=== PATIENT | female | born 1940 | race Caucasian/White ===

== ENCOUNTER → 2017-09-12 09:41 | Outpatient (CLI) | payer OTHER, SELFPAY ==
--- NOTE | 2017-09-12 09:43 | DI.RAD.S_ITS ---
PROCEDURE: XR CERVICAL SPINE 2V OR 3V INDICATIONS: neck pain TECHNIQUE: 3 view(s) of the cervical spine were acquired. COMPARISON: None. FINDINGS: Bones: No fractures or dislocations to the C7 level. The lateral masses of C1 appear intact on the odontoid view, degenerative facet disease left greater than right. Multilevel disc narrowing, most marked at C5-6. Hypertrophic changes in the lateral masses bilaterally. No suspicious bony lesions. Soft tissues: No prevertebral soft tissue swelling. IMPRESSION: Degenerative cervical spine disease. Dictated by: Tom Baca M.D. on 09/12/2017 at 9:53 Approved by: Tom Baca M.D. on 09/12/2017 at 9:55
== END ==
PROVIDERS: Family Provider Family Medicine; PCP Family Medicine; Visit Provider Family Medicine
DX: M48.02 Spinal stenosis, cervical region (principal); M54.2 Cervicalgia
CPT/HCPCS: 72040

== ENCOUNTER 2017-11-29 13:00 | Outpatient (RCR) | payer OTHER, SELFPAY ==
--- NOTE | 2017-10-04 13:01 | PT.OIE ---
Current Diagnoses Cervicalgia (10/04/17) Past Medical History (Last Updated 09/07/17 @ 17:09 by Natacha Sam) Goiter (Chronic ~1953) Hearing loss (Chronic ~1999) Osteoarthritis (Chronic ~1999) Shoulder pain (Chronic ~1999) Chicken pox (Resolved ~1946) Measles (Resolved ~1949) Past Surgical History (Last Updated 09/07/17 @ 17:09 by Natacha Sam) Anesthesia (Resolved) Cataract (Resolved ~2010) History of vaginal delivery (Resolved ~1968) Status post dilation and curettage Provider Visit Care Team Role Provider Type All Chavez MD Attending Provider Physician Family Provider Primary Care Provider Specialty: Family Practice Address: [address] [place] [address], [facility] Email: [email or web address] Physical Therapy Initial Evaluation PT-OP-A Visit Information Start: 09/29/17 15:18 Freq: Status: Active Protocol: Document 09/29/17 15:18 EA (Rec: 09/29/17 15:21 EA [id number]) Out-Patient Physical Therapy Visit Information Visit Information Visit Type Initial Evaluation Visit Start Time 09:00 Visit Stop Time 09:45 Total Visit Minutes 45 Visit Number 1 Evaluation Information Evaluation Date 09/29/17 PT-OP-B Current Condition Start: 09/29/17 15:18 Freq: Status: Active Protocol: Document 09/29/17 15:18 EA (Rec: 09/29/17 15:21 EA [id number]) Current Condition History of Current Condition Onset Date 5 months ago Current Complaints left neck pain History of Current Condition Present condition started on the last week of April 2017 and happens after waking up in the morning; states no significant history of neck or shoulder injury. Pain initially tolerated and gradually worsens in few weeks time and that prompted to see her medical doctor; states today neck has improved since the injury. 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 Prior Treatments and Tests None Future Testing and Treatments Planned None at this time Treatment Goals Patient/Caregiver Goals 1.Eliminate pain 2. Improve neck mobility Prior Functional Status Baseline Function- ADL's Independent Current Functional Impairments (Reported) Functional Limitations- ADL's limited with some ADL head neck positioning Functional Limitations- Other Driving, reading, upright position tolerance Personal Factors Other Personal Factors That May Effect Chronicity of the condition Therapy/Recovery PT-OP-C Subjective Start: 09/29/17 15:18 Freq: Status: Active Protocol: Document 09/29/17 15:17 EA (Rec: 10/04/17 11:13 EA [id number]) OP-PT Subjective Patient Comments Patient Comments Patient c/o driving the car, sleeping and moving the head in diff direction due to localized neck pain rated 7/10 at worse and 3/10 at best. Pt states wants to eliminate pain and so she could perform her ADL's without limitation. Patient Reported Progress Improving Patient Questionnaires Neck Disability Index NDI Score 10 Neck Disability Index Impairment 1 to 19% Impaired (Score 1-9) PT-OP-F Manual Assessment Start: 09/29/17 15:18 Freq: Status: Active Protocol: Document 09/29/17 15:17 EA (Rec: 10/04/17 11:13 EA [id number]) Manual Assessments Soft Tissue Assessment Soft Tissue Mobility Assessment tightness ti both traps, deep neck muscles, scallenes, LS, SCM PT-OP-H Neuro Start: 09/29/17 15:18 Freq: Status: Active Protocol: Document 09/29/17 15:17 EA (Rec: 10/04/17 11:13 EA [id number]) Sensation Evaluation Gross Sensation Gross Sensation WNL Deep Tendon Reflex & Clonus Assessment Deep Tendon Reflex Bilateral Brachioradialis Deep Tendon Reflex 2+ Normal Bilateral Tricep Deep Tendon Reflex 2+ Normal Bilateral Bicep Deep Tendon Reflex 2+ Normal PT-OP-J Posture/Palpation/Skin Start: 09/29/17 15:18 Freq: Status: Active Protocol: Document 09/29/17 15:18 EA (Rec: 10/04/17 07:32 EA [id number]) Posture Evaluation Position Standing Evaluation View Anterior Head/C-Spine Posture Forward Head Shoulder Posture (L) Rounded (R) Rounded Arm Posture (L) Internally Rotated (R) Internally Rotated Palpation Assessment Location One Palpation Location Left traps, SCM, Deepcervical neck ms. Palpation Findings Soft Tissue Tightness Tenderness PT-OP-K Range of Motion Start: 09/29/17 15:18 Freq: Status: Active Protocol: Document 09/29/17 15:18 EA (Rec: 10/04/17 10:56 EA [id number]) Cervical Spine Range of Motion Cervical Spine Active Testing Position Sitting Flexion 35 Extension 35 Rotation Left 35 Rotation Right 20 Lateral Flexion Left 35 Lateral Flexion Right 30 ROM Limitations Soft Tissue Tightness Pain Comments ROM is limited by pain and tightness Shoulder Goniometric Range of Motion Shoulder Measured in Degrees Right Shoulder ROM WFL Yes Left Shoulder ROM WFL Yes PT-OP-L Special Tests Start: 09/29/17 15:18 Freq: Status: Active Protocol: Document 09/29/17 15:18 EA (Rec: 10/04/17 09:42 EA [id number]) Special Tests Cervical Spine Special Tests Other- 1 Test Results + Comments Facets joint Vertebral Artery Test Results - Spurling's Test Test Results - Shoulder Abduction Test Test Results - Foraminal Compression Test Results - PT-OP-M Strength Start: 09/29/17 15:18 Freq: Status: Active Protocol: Document 09/29/17 15:18 EA (Rec: 10/04/17 09:42 EA [id number]) Cervical Spine Strength Cervical Spine Manual Muscle Testing Flexion (C1-2) 3+ Fair+ Extension 4- Good- Rotation Left 3+ Fair+ Rotation Right 3+ Fair+ Lateral Flexion Left (C3) 3+ Fair+ Lateral Flexion Right (C3) 3+ Fair+ Comments MMT is maybe limited by pain Shoulder Strength Shoulder Manual Muscle Testing Right Horizontal Adduction 4+ Good+ Left Reason Not Measured WFL PT-OP-Q Treatments Start: 09/29/17 15:18 Freq: Status: Active Protocol: Document 09/29/17 15:18 EA (Rec: 10/04/17 09:42 EA [id number]) Manual Therapy Treatment Soft Tissue Mobilization 1 Body Location Left traps, SCM, LS, deep neck ms Mobilization Type Myofascial Release Rolling Sustained Pressure Intensity/Depth Moderate Body Position Sitting PT-OP-R Modalities Start: 09/29/17 15:18 Freq: Status: Active Protocol: Document 09/29/17 15:18 EA (Rec: 10/04/17 07:32 EA [id number]) Hot Pack/Cold Pack Treatment Hot Pack Location Cervical region Patient Position Sitting Patient Tolerance Good PT-OP-T Assessment and Plan Start: 09/29/17 15:18 Freq: Status: Active Protocol: Document 09/29/17 15:18 EA (Rec: 10/04/17 07:32 EA [id number]) Physical Therapy Assessment Rehab Potential Rehabilitation Potential Good Evaluation Complexity Number of Personal Factors/Comorbidities 1-2 Number of Body Systems Impaired 1-2 Clinical Presentation at Evaluation Stable Impairments Impairments Pain Posture ROM Soft Tissue Mobility Strength Goals Three Impairment Subjective pain complaint of 7 /10 PS Half-Way Goal (LTG) Patient will reports neck pain complaint down to 2/10 to perform neck functional mobility with no limitation LTG Duration 4 wks. Two Impairment Impaired cervical ROM Half-Way Goal (LTG) Patient will increase cervical ROM to functional range to ihnace functional neck mobility. LTG Duration 4 wks One Impairment Impaired Head neck and shoulder posture Appeals Analyst Goal (LTG) Patient will exhibits near to normal or at least functional posture to head/neck LTG Duration 4 wks Assessment Summary Assessment Pleasant 77 y/o F patient diagnosed with neck pain. Today patient exhibits difficulty with neck movement due to LOM in all planes of cervical motion and pain to right cervical region particularly C4-C6 joint facets. Pt exhibits no foraminal nerve compression in all cervical nerves during the tests; however, facet joints test reveals positive in both opening and closing motion with combination of muscular tightness. Due to this condition, patient have limitation in most functional tasks that require neck motion . In my professional opinion, patient will benefit with skilled PT to address the aforementioned deficits. Physical Therapy Plan Frequency and Duration Frequency of Treatment 2x/Week Plan of Care Start Date 09/29/17 Plan of Care End Date 11/24/17 Therapeutic Interventions Therapeutic Interventions Home Exercise Program Joint Mobilizations Manual Therapy Patient/Caregiver Education Self-Care/Home Management Soft Tissue Mobilization Therapeutic Exercises Modalities Cold Pack/Ice Massage Electric Stimulation Hot Packs Next Visit Focus/Plan Next Note Type Treatment Note Next Visit Plan ROM exercises, Modalities, STM , HEP as able
--- NOTE | 2017-10-04 13:07 | PT.OTN ---
Current Diagnoses Cervicalgia (10/04/17) Physical Therapy Treatment Note PT-OP-A Visit Information Start: 09/29/17 15:18 Freq: Status: Active Protocol: Document 09/29/17 15:18 EA (Rec: 09/29/17 15:21 EA [id number]) Out-Patient Physical Therapy Visit Information Visit Information Visit Type Initial Evaluation Visit Start Time 09:00 Visit Stop Time 09:45 Total Visit Minutes 45 Visit Number 1 Evaluation Information Evaluation Date 09/29/17 PT-OP-B Current Condition Start: 09/29/17 15:18 Freq: Status: Active Protocol: Document 09/29/17 15:18 EA (Rec: 09/29/17 15:21 EA [id number]) Current Condition History of Current Condition Onset Date 5 months ago Current Complaints left neck pain History of Current Condition Present condition started on the last week of April 2017 and happens after waking up in the morning; states no significant history of neck or shoulder injury. Pain initially tolereated and gradually worsens in few weeks time and that prompted to see her medical doctor; states today neck has improved since the injury. 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 Prior Treatments and Tests None Future Testing and Treatments Planned None at this time Treatment Goals Patient/Caregiver Goals 1.Eliminate pain 2. Improve neck mobility Prior Functional Status Baseline Function- ADL's Independent Current Functional Impairments (Reported) Functional Limitations- ADL's limited with some ADL head neck positioning Functional Limitations- Other Driving, reading, upright position tolerance Personal Factors Other Personal Factors That May Effect Chronicity of the condition Therapy/Recovery PT-OP-C Subjective Start: 09/29/17 15:18 Freq: Status: Active Protocol: Document 09/29/17 15:17 EA (Rec: 10/04/17 11:13 EA [id number]) OP-PT Subjective Patient Comments Patient Comments Patient c/o driving the car, sleeping and moving the head in diff direction due to localized neck pain rated 7/10 at worse and 3/10 at best. Pt states wants to eliminate pain and so she could perform her ADL's without limitation. Patient Reported Progress Improving Patient Questionnaires Neck Disability Index NDI Score 10 Neck Disability Index Impairment 1 to 19% Impaired (Score 1-9) PT-OP-F Manual Assessment Start: 09/29/17 15:18 Freq: Status: Active Protocol: Document 09/29/17 15:17 EA (Rec: 10/04/17 11:13 EA [id number]) Manual Assessments Soft Tissue Assessment Soft Tissue Mobility Assessment tightness ti both traps, deep neck muscles, scallenes, LS, SCM PT-OP-H Neuro Start: 09/29/17 15:18 Freq: Status: Active Protocol: Document 09/29/17 15:17 EA (Rec: 10/04/17 11:13 EA [id number]) Sensation Evaluation Gross Sensation Gross Sensation WNL Deep Tendon Reflex & Clonus Assessment Deep Tendon Reflex Bilateral Brachioradialis Deep Tendon Reflex 2+ Normal Bilateral Tricep Deep Tendon Reflex 2+ Normal Bilateral Bicep Deep Tendon Reflex 2+ Normal PT-OP-J Posture/Palpation/Skin Start: 09/29/17 15:18 Freq: Status: Active Protocol: Document 09/29/17 15:18 EA (Rec: 10/04/17 07:32 EA [id number]) Posture Evaluation Position Standing Evaluation View Anterior Head/C-Spine Posture Forward Head Shoulder Posture (L) Rounded (R) Rounded Arm Posture (L) Internally Rotated (R) Internally Rotated Palpation Assessment Location One Palpation Location Left traps, SCM, Deepcervical neck ms. Palpation Findings Soft Tissue Tightness Tenderness PT-OP-K Range of Motion Start: 09/29/17 15:18 Freq: Status: Active Protocol: Document 09/29/17 15:18 EA (Rec: 10/04/17 10:56 EA [id number]) Cervical Spine Range of Motion Cervical Spine Active Testing Position Sitting Flexion 35 Extension 35 Rotation Left 35 Rotation Right 20 Lateral Flexion Left 35 Lateral Flexion Right 30 ROM Limitations Soft Tissue Tightness Pain Comments ROM is limited by pain and tightness Shoulder Goniometric Range of Motion Shoulder Measured in Degrees Right Shoulder ROM WFL Yes Left Shoulder ROM WFL Yes PT-OP-L Special Tests Start: 09/29/17 15:18 Freq: Status: Active Protocol: Document 09/29/17 15:18 EA (Rec: 10/04/17 09:42 EA [id number]) Special Tests Cervical Spine Special Tests Other- 1 Test Results + Comments Facets joint Vertebral Artery Test Results - Spurling's Test Test Results - Shoulder Abduction Test Test Results - Foraminal Compression Test Results - PT-OP-M Strength Start: 09/29/17 15:18 Freq: Status: Active Protocol: Document 09/29/17 15:18 EA (Rec: 10/04/17 09:42 EA [id number]) Cervical Spine Strength Cervical Spine Manual Muscle Testing Flexion (C1-2) 3+ Fair+ Extension 4- Good- Rotation Left 3+ Fair+ Rotation Right 3+ Fair+ Lateral Flexion Left (C3) 3+ Fair+ Lateral Flexion Right (C3) 3+ Fair+ Comments MMT is maybe limited by pain Shoulder Strength Shoulder Manual Muscle Testing Right Horizontal Adduction 4+ Good+ Left Reason Not Measured WFL PT-OP-Q Treatments Start: 09/29/17 15:18 Freq: Status: Active Protocol: Document 09/29/17 15:18 EA (Rec: 10/04/17 09:42 EA [id number]) Manual Therapy Treatment Soft Tissue Mobilization 1 Body Location Left traps, SCM, LS, deep neck ms Mobilization Type Myofascial Release Rolling Sustained Pressure Intensity/Depth Moderate Body Position Sitting PT-OP-R Modalities Start: 09/29/17 15:18 Freq: Status: Active Protocol: Document 09/29/17 15:18 EA (Rec: 10/04/17 07:32 EA [id number]) Hot Pack/Cold Pack Treatment Hot Pack Location Cervical region Patient Position Sitting Patient Tolerance Good PT-OP-T Assessment and Plan Start: 09/29/17 15:18 Freq: Status: Active Protocol: Document 09/29/17 15:18 EA (Rec: 10/04/17 07:32 EA [id number]) Physical Therapy Assessment Rehab Potential Rehabilitation Potential Good Evaluation Complexity Number of Personal Factors/Comorbidities 1-2 Number of Body Systems Impaired 1-2 Clinical Presentation at Evaluation Stable Impairments Impairments Pain Posture ROM Soft Tissue Mobility Strength Goals Three Impairment Subjective pain complaint of 7 /10 PS Detention Goal (LTG) Patient will reports neck pain complaint down to 2/10 to perform neck functional mobility with no limitation LTG Duration 4 wks. Two Impairment Impaired cervical ROM Marketing Operations Coordinator Goal (LTG) Patient will increase cervical ROM to functional range to enhance functional neck mobility. LTG Duration 4 wks One Impairment Impaired Head neck and shoulder posture Detention Goal (LTG) Patient will exhibits near to normal or atleast functional posture to head/neck LTG Duration 4 wks Assessment Summary Assessment Pleasant 77 y/o F patient diagnosed with neck pain. Today patient exhibits difficulty with neck movement due to LOM in all planes of cervical motion and pain to right cervical region particularly C4-C6 joint facets. Pt exhibits no foraminal nerve compression in all cervical nerves during the tests; however, facet joints test reveals positive in both opening and closing motion with combination of muscular tightness. Due to this condition, patient have limitation in most functional tasks that require neck motion . In my professional opinion, patient will benefit with skilled PT to address the aforementioned deficits. Physical Therapy Plan Frequency and Duration Frequency of Treatment 2x/Week Plan of Care Start Date 09/29/17 Plan of Care End Date 11/24/17 Therapeutic Interventions Therapeutic Interventions Home Exercise Program Joint Mobilizations Manual Therapy Patient/Caregiver Education Self-Care/Home Management Soft Tissue Mobilization Therapeutic Exercises Modalities Cold Pack/Ice Massage Electric Stimulation Hot Packs Next Visit Focus/Plan Next Note Type Treatment Note Next Visit Plan ROM exercises, Modalities, STM , HEP as able
--- NOTE | 2017-10-04 13:08 | PT.OPPOC ---
Current Diagnoses Cervicalgia (10/04/17) Provider Visit Care Team Role Provider Type All Chavez MD Attending Provider Physician Family Provider Primary Care Provider Specialty: Family Practice Address: [address] [place] [address], [facility] Email: [email or web address] Plan Of Care PT-OP-T Assessment and Plan Start: 09/29/17 15:18 Freq: Status: Active Protocol: Document 09/29/17 15:18 EA (Rec: 10/04/17 07:32 EA [id number]) Physical Therapy Assessment Rehab Potential Rehabilitation Potential Good Evaluation Complexity Number of Personal Factors/Comorbidities 1-2 Number of Body Systems Impaired 1-2 Clinical Presentation at Evaluation Stable Impairments Impairments Pain Posture ROM Soft Tissue Mobility Strength Goals Three Impairment Subjective pain complaint of 7 /10 PS Prison Goal (LTG) Patient will reports neck pain complaint down to 2/10 to perform neck fuctional mobility with no limitation LTG Duration 4 wks. Two Impairment Impaired cervical ROM Prison Goal (LTG) Patient will increase cervical ROM to functional range to enhance functional neck mobility. LTG Duration 4 wks One Impairment Impaired Head neck and shoulder posture Simonizer Goal (LTG) Patient will exhibits near to normal or at least functional posture to head/neck LTG Duration 4 wks Assessment Summary Assessment Pleasant 77 y/o F patient diagnosed with neck pain. Today patient exhibits difficulty with neck movement due to LOM in all planes of cervical motion and pain to right cervical region particularly C4-C6 joint facets. Pt exhibits no foraminal nerve compression in all cervical nerves during the tests; however, facet joints test reveals positive in both opening and closing motion with combination of muscular tightness. Due to this condition, patient have limitation in most functional tasks that require neck motion . In my professional opinion, patient will benefit with skilled PT to address the aforementioned deficits. Physical Therapy Plan Frequency and Duration Frequency of Treatment 2x/Week Plan of Care Start Date 09/29/17 Plan of Care End Date 11/24/17 Therapeutic Interventions Therapeutic Interventions Home Exercise Program Joint Mobilizations Manual Therapy Patient/Caregiver Education Self-Care/Home Management Soft Tissue Mobilization Therapeutic Exercises Modalities Cold Pack/Ice Massage Electric Stimulation Hot Packs Next Visit Focus/Plan Next Note Type Treatment Note Next Visit Plan ROM exercises, Modalities, STM , HEP as able Plan of Care Dates Plan of Care Start Date 09/29/17 Plan of Care End Date 11/24/17 Please Sign and Return: I have reviewed this Plan of Care and certify that the skilled therapy services above are required to meet the patient?s needs. Physician Signature Date Printed Name and Credentials Clinical Instructor Signature Printed Name and Credentials
--- NOTE | 2017-10-04 13:17 | PT.OTN ---
Current Diagnoses Cervicalgia (10/04/17) Physical Therapy Treatment Note PT-OP-A Visit Information Start: 09/29/17 15:18 Freq: Status: Active Protocol: Document 10/04/17 13:15 EA (Rec: 10/04/17 13:15 EA [id number]) Out-Patient Physical Therapy Visit Information Visit Information Visit Type Treatment Note Visit Start Time 12:15 Visit Stop Time 13:00 Total Visit Minutes 45 Visit Number 2 PT-OP-B Current Condition Start: 09/29/17 15:18 Freq: Status: Active Protocol: Document 09/29/17 15:18 EA (Rec: 09/29/17 15:21 EA [id number]) Current Condition History of Current Condition Onset Date 5 months ago Current Complaints left neck pain History of Current Condition Present condition started on the last week of April 2017 and happens after waking up in the morning; states no significant history of neck or shoulder injury. Pain initially tolereated and gradually worsens in few weeks time and that prompted to see her medical doctor; states today neck has improved since the injury. 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 Prior Treatments and Tests None Future Testing and Treatments Planned None at this time Treatment Goals Patient/Caregiver Goals 1.Eliminate pain 2. Improve neck mobility Prior Functional Status Baseline Function- ADL's Independent Current Functional Impairments (Reported) Functional Limitations- ADL's limited with some ADL head neck positioning Functional Limitations- Other Driving, reading, upright position tolerance Personal Factors Other Personal Factors That May Effect Chronicity of the condition Therapy/Recovery PT-OP-C Subjective Start: 09/29/17 15:18 Freq: Status: Active Protocol: Document 10/04/17 13:10 EA (Rec: 10/04/17 13:15 EA [id number]) OP-PT Subjective Patient Comments Patient Comments Pt reports neck pain had improved after last session; states has been complaint with HEP. Patient Reported Progress Improving PT-OP-F Manual Assessment Start: 09/29/17 15:18 Freq: Status: Active Protocol: Document 09/29/17 15:17 EA (Rec: 10/04/17 11:13 EA [id number]) Manual Assessments Soft Tissue Assessment Soft Tissue Mobility Assessment tightness ti both traps, deep neck muscles, scallenes, LS, SCM PT-OP-H Neuro Start: 09/29/17 15:18 Freq: Status: Active Protocol: Document 09/29/17 15:17 EA (Rec: 10/04/17 11:13 EA [id number]) Sensation Evaluation Gross Sensation Gross Sensation WNL Deep Tendon Reflex & Clonus Assessment Deep Tendon Reflex Bilateral Brachioradialis Deep Tendon Reflex 2+ Normal Bilateral Tricep Deep Tendon Reflex 2+ Normal Bilateral Bicep Deep Tendon Reflex 2+ Normal PT-OP-J Posture/Palpation/Skin Start: 09/29/17 15:18 Freq: Status: Active Protocol: Document 09/29/17 15:18 EA (Rec: 10/04/17 07:32 EA [id number]) Posture Evaluation Position Standing Evaluation View Anterior Head/C-Spine Posture Forward Head Shoulder Posture (L) Rounded (R) Rounded Arm Posture (L) Internally Rotated (R) Internally Rotated Palpation Assessment Location One Palpation Location Left traps, SCM, Deepcervical neck ms. Palpation Findings Soft Tissue Tightness Tenderness PT-OP-K Range of Motion Start: 09/29/17 15:18 Freq: Status: Active Protocol: Document 09/29/17 15:18 EA (Rec: 10/04/17 10:56 EA [id number]) Cervical Spine Range of Motion Cervical Spine Active Testing Position Sitting Flexion 35 Extension 35 Rotation Left 35 Rotation Right 20 Lateral Flexion Left 35 Lateral Flexion Right 30 ROM Limitations Soft Tissue Tightness Pain Comments ROM is limited by pain and tightness Shoulder Goniometric Range of Motion Shoulder Measured in Degrees Right Shoulder ROM WFL Yes Left Shoulder ROM WFL Yes PT-OP-L Special Tests Start: 09/29/17 15:18 Freq: Status: Active Protocol: Document 09/29/17 15:18 EA (Rec: 10/04/17 09:42 EA [id number]) Special Tests Cervical Spine Special Tests Other- 1 Test Results + Comments Facets joint Vertebral Artery Test Results - Spurling's Test Test Results - Shoulder Abduction Test Test Results - Foraminal Compression Test Results - PT-OP-M Strength Start: 09/29/17 15:18 Freq: Status: Active Protocol: Document 09/29/17 15:18 EA (Rec: 10/04/17 09:42 EA [id number]) Cervical Spine Strength Cervical Spine Manual Muscle Testing Flexion (C1-2) 3+ Fair+ Extension 4- Good- Rotation Left 3+ Fair+ Rotation Right 3+ Fair+ Lateral Flexion Left (C3) 3+ Fair+ Lateral Flexion Right (C3) 3+ Fair+ Comments MMT is maybe limited by pain Shoulder Strength Shoulder Manual Muscle Testing Right Horizontal Adduction 4+ Good+ Left Reason Not Measured WFL PT-OP-Q Treatments Start: 09/29/17 15:18 Freq: Status: Active Protocol: Document 10/04/17 13:10 EA (Rec: 10/04/17 13:15 EA [id number]) Therapeutic Exercises Supine Exercises 2 Supine Exercise Name Cervical muscles streching Side bilateral Reps/Minutes x 15SH x 2 reps 1 Supine Exercise Name Cervical AROM: flexion, rotation, SB, chin tucking Side bilateral Reps/Minutes 10 reps x 2 Manual Therapy Treatment Soft Tissue Mobilization 1 Body Location Cervical muscles, scalenes, SCM, upper traps Mobilization Type Myofascial Release Rolling Sustained Pressure Trigger Point Release Intensity/Depth Moderate Body Position Supine Self-Care/Home Management Treatment Education Patient Education Home Exercise Program Pain Management Posture PT-OP-R Modalities Start: 09/29/17 15:18 Freq: Status: Active Protocol: Document 10/04/17 13:10 EA (Rec: 10/04/17 13:15 EA [id number]) Hot Pack/Cold Pack Treatment Hot Pack Location 10 Patient Position Supine Patient Tolerance Good PT-OP-T Assessment and Plan Start: 09/29/17 15:18 Freq: Status: Active Protocol: Document 10/04/17 13:10 EA (Rec: 10/04/17 13:15 EA [id number]) Physical Therapy Assessment Assessment Summary Assessment Tolerated treatment well. Patient had improved ROM at this time. Physical Therapy Plan Next Visit Focus/Plan Next Note Type Treatment Note Next Visit Plan Cont with current plan.
--- NOTE | 2017-10-06 13:50 | PT.OTN ---
Current Diagnoses Cervicalgia (10/06/17) Physical Therapy Treatment Note PT-OP-A Visit Information Start: 09/29/17 15:18 Freq: Status: Active Protocol: Document 10/06/17 13:33 EA (Rec: 10/06/17 13:42 EA [id number]) Out-Patient Physical Therapy Visit Information Visit Information Visit Type Treatment Note Visit Start Time 13:00 Visit Stop Time 13:50 Total Visit Minutes 50 Visit Number 3 PT-OP-B Current Condition Start: 09/29/17 15:18 Freq: Status: Active Protocol: Document 09/29/17 15:18 EA (Rec: 09/29/17 15:21 EA [id number]) Current Condition History of Current Condition Onset Date 5 months ago Current Complaints left neck pain History of Current Condition Present condition started on the last week of April 2017 and happens after waking up in the morning; states no significant history of neck or shoulder injury. Pain initially tolereated and gradually worsens in few weeks time and that prompted to see her medical doctor; states today neck has improved since the injury. 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 Prior Treatments and Tests None Future Testing and Treatments Planned None at this time Treatment Goals Patient/Caregiver Goals 1.Eliminate pain 2. Improve neck mobility Prior Functional Status Baseline Function- ADL's Independent Current Functional Impairments (Reported) Functional Limitations- ADL's limited with some ADL head neck positioning Functional Limitations- Other Driving, reading, upright position tolerance Personal Factors Other Personal Factors That May Effect Chronicity of the condition Therapy/Recovery PT-OP-C Subjective Start: 09/29/17 15:18 Freq: Status: Active Protocol: Document 10/06/17 13:42 EA (Rec: 10/06/17 13:44 EA [id number]) OP-PT Subjective Patient Comments Patient Comments Patient reports neck mobility is improving; states quite sore from exercises but improving. Patient Reported Progress Improving PT-OP-F Manual Assessment Start: 09/29/17 15:18 Freq: Status: Active Protocol: Document 09/29/17 15:17 EA (Rec: 10/04/17 11:13 EA [id number]) Manual Assessments Soft Tissue Assessment Soft Tissue Mobility Assessment tightness ti both traps, deep neck muscles, scallenes, LS, SCM PT-OP-H Neuro Start: 09/29/17 15:18 Freq: Status: Active Protocol: Document 09/29/17 15:17 EA (Rec: 10/04/17 11:13 EA [id number]) Sensation Evaluation Gross Sensation Gross Sensation WNL Deep Tendon Reflex & Clonus Assessment Deep Tendon Reflex Bilateral Brachioradialis Deep Tendon Reflex 2+ Normal Bilateral Tricep Deep Tendon Reflex 2+ Normal Bilateral Bicep Deep Tendon Reflex 2+ Normal PT-OP-J Posture/Palpation/Skin Start: 09/29/17 15:18 Freq: Status: Active Protocol: Document 09/29/17 15:18 EA (Rec: 10/04/17 07:32 EA [id number]) Posture Evaluation Position Standing Evaluation View Anterior Head/C-Spine Posture Forward Head Shoulder Posture (L) Rounded (R) Rounded Arm Posture (L) Internally Rotated (R) Internally Rotated Palpation Assessment Location One Palpation Location Left traps, SCM, Deepcervical neck ms. Palpation Findings Soft Tissue Tightness Tenderness PT-OP-K Range of Motion Start: 09/29/17 15:18 Freq: Status: Active Protocol: Document 09/29/17 15:18 EA (Rec: 10/04/17 10:56 EA [id number]) Cervical Spine Range of Motion Cervical Spine Active Testing Position Sitting Flexion 35 Extension 35 Rotation Left 35 Rotation Right 20 Lateral Flexion Left 35 Lateral Flexion Right 30 ROM Limitations Soft Tissue Tightness Pain Comments ROM is limited by pain and tightness Shoulder Goniometric Range of Motion Shoulder Measured in Degrees Right Shoulder ROM WFL Yes Left Shoulder ROM WFL Yes PT-OP-L Special Tests Start: 09/29/17 15:18 Freq: Status: Active Protocol: Document 09/29/17 15:18 EA (Rec: 10/04/17 09:42 EA [id number]) Special Tests Cervical Spine Special Tests Other- 1 Test Results + Comments Facets joint Vertebral Artery Test Results - Spurling's Test Test Results - Shoulder Abduction Test Test Results - Foraminal Compression Test Results - PT-OP-M Strength Start: 09/29/17 15:18 Freq: Status: Active Protocol: Document 09/29/17 15:18 EA (Rec: 10/04/17 09:42 EA [id number]) Cervical Spine Strength Cervical Spine Manual Muscle Testing Flexion (C1-2) 3+ Fair+ Extension 4- Good- Rotation Left 3+ Fair+ Rotation Right 3+ Fair+ Lateral Flexion Left (C3) 3+ Fair+ Lateral Flexion Right (C3) 3+ Fair+ Comments MMT is maybe limited by pain Shoulder Strength Shoulder Manual Muscle Testing Right Horizontal Adduction 4+ Good+ Left Reason Not Measured WFL PT-OP-Q Treatments Start: 09/29/17 15:18 Freq: Status: Active Protocol: Document 10/06/17 13:33 EA (Rec: 10/06/17 13:42 EA [id number]) Therapeutic Exercises Supine Exercises 3 Supine Exercise Name Isometric: all planes Reps/Minutes x 5 SH x 5 reps 2 Supine Exercise Name Cervical muscles streching Side bilateral Reps/Minutes x 15SH x 2 reps 1 Supine Exercise Name Cervical AROM: flexion, rotation, SB, chin tucking Side bilateral Reps/Minutes 10 reps x 2 Manual Therapy Treatment Soft Tissue Mobilization 1 Body Location Cervical muscles, scalenes, SCM, upper traps Mobilization Type Myofascial Release Rolling Sustained Pressure Trigger Point Release Intensity/Depth Moderate Body Position Supine Manual Traction Cervical Body Position Supine Comments gentle manual traction Manual Techniques 1 Type gentle passive stretch Comments wbncquey-bdeux-QVKC-passive stretch PT-OP-R Modalities Start: 09/29/17 15:18 Freq: Status: Active Protocol: Document 10/06/17 13:42 EA (Rec: 10/06/17 13:44 EA [id number]) Hot Pack/Cold Pack Treatment Hot Pack Location cervical Patient Position Supine Treatment Duration (minutes) 10 Patient Tolerance Good PT-OP-T Assessment and Plan Start: 09/29/17 15:18 Freq: Status: Active Protocol: Document 10/06/17 13:33 EA (Rec: 10/06/17 13:42 EA [id number]) Physical Therapy Assessment Assessment Summary Assessment Patient had improved ROM after luticlhe-ytlxe-ellmulv stretch Physical Therapy Plan Next Visit Focus/Plan Next Note Type Treatment Note Next Visit Plan Cont with current plan.
--- NOTE | 2017-10-12 14:31 | PT.OTN ---
Current Diagnoses Cervicalgia (10/12/17) Physical Therapy Treatment Note PT-OP-A Visit Information Start: 09/29/17 15:18 Freq: Status: Active Protocol: Document 10/12/17 14:15 EA (Rec: 10/12/17 14:19 EA [id number]) Out-Patient Physical Therapy Visit Information Visit Information Visit Type Treatment Note Visit Start Time 13:45 Visit Stop Time 14:35 Total Visit Minutes 50 Visit Number 4 PT-OP-B Current Condition Start: 09/29/17 15:18 Freq: Status: Active Protocol: Document 09/29/17 15:18 EA (Rec: 09/29/17 15:21 EA [id number]) Current Condition History of Current Condition Onset Date 5 months ago Current Complaints left neck pain History of Current Condition Present condition started on the last week of April 2017 and happens after waking up in the morning; states no significant history of neck or shoulder injury. Pain initially tolereated and gradually worsens in few weeks time and that prompted to see her medical doctor; states today neck has improved since the injury. 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 Prior Treatments and Tests None Future Testing and Treatments Planned None at this time Treatment Goals Patient/Caregiver Goals 1.Eliminate pain 2. Improve neck mobility Prior Functional Status Baseline Function- ADL's Independent Current Functional Impairments (Reported) Functional Limitations- ADL's limited with some ADL head neck positioning Functional Limitations- Other Driving, reading, upright position tolerance Personal Factors Other Personal Factors That May Effect Chronicity of the condition Therapy/Recovery PT-OP-C Subjective Start: 09/29/17 15:18 Freq: Status: Active Protocol: Document 10/12/17 14:15 EA (Rec: 10/12/17 14:19 EA [id number]) OP-PT Subjective Patient Comments Patient Comments Patient reports neck is much better after last session; states yesterday and today it feels pain is back. Patient Reported Progress Improving PT-OP-F Manual Assessment Start: 09/29/17 15:18 Freq: Status: Active Protocol: Document 09/29/17 15:17 EA (Rec: 10/04/17 11:13 EA [id number]) Manual Assessments Soft Tissue Assessment Soft Tissue Mobility Assessment tightness ti both traps, deep neck muscles, scallenes, LS, SCM PT-OP-H Neuro Start: 09/29/17 15:18 Freq: Status: Active Protocol: Document 09/29/17 15:17 EA (Rec: 10/04/17 11:13 EA [id number]) Sensation Evaluation Gross Sensation Gross Sensation WNL Deep Tendon Reflex & Clonus Assessment Deep Tendon Reflex Bilateral Brachioradialis Deep Tendon Reflex 2+ Normal Bilateral Tricep Deep Tendon Reflex 2+ Normal Bilateral Bicep Deep Tendon Reflex 2+ Normal PT-OP-J Posture/Palpation/Skin Start: 09/29/17 15:18 Freq: Status: Active Protocol: Document 09/29/17 15:18 EA (Rec: 10/04/17 07:32 EA [id number]) Posture Evaluation Position Standing Evaluation View Anterior Head/C-Spine Posture Forward Head Shoulder Posture (L) Rounded (R) Rounded Arm Posture (L) Internally Rotated (R) Internally Rotated Palpation Assessment Location One Palpation Location Left traps, SCM, Deepcervical neck ms. Palpation Findings Soft Tissue Tightness Tenderness PT-OP-K Range of Motion Start: 09/29/17 15:18 Freq: Status: Active Protocol: Document 09/29/17 15:18 EA (Rec: 10/04/17 10:56 EA [id number]) Cervical Spine Range of Motion Cervical Spine Active Testing Position Sitting Flexion 35 Extension 35 Rotation Left 35 Rotation Right 20 Lateral Flexion Left 35 Lateral Flexion Right 30 ROM Limitations Soft Tissue Tightness Pain Comments ROM is limited by pain and tightness Shoulder Goniometric Range of Motion Shoulder Measured in Degrees Right Shoulder ROM WFL Yes Left Shoulder ROM WFL Yes PT-OP-L Special Tests Start: 09/29/17 15:18 Freq: Status: Active Protocol: Document 09/29/17 15:18 EA (Rec: 10/04/17 09:42 EA [id number]) Special Tests Cervical Spine Special Tests Other- 1 Test Results + Comments Facets joint Vertebral Artery Test Results - Spurling's Test Test Results - Shoulder Abduction Test Test Results - Foraminal Compression Test Results - PT-OP-M Strength Start: 09/29/17 15:18 Freq: Status: Active Protocol: Document 09/29/17 15:18 EA (Rec: 10/04/17 09:42 EA [id number]) Cervical Spine Strength Cervical Spine Manual Muscle Testing Flexion (C1-2) 3+ Fair+ Extension 4- Good- Rotation Left 3+ Fair+ Rotation Right 3+ Fair+ Lateral Flexion Left (C3) 3+ Fair+ Lateral Flexion Right (C3) 3+ Fair+ Comments MMT is maybe limited by pain Shoulder Strength Shoulder Manual Muscle Testing Right Horizontal Adduction 4+ Good+ Left Reason Not Measured WFL PT-OP-Q Treatments Start: 09/29/17 15:18 Freq: Status: Active Protocol: Document 10/12/17 14:15 EA (Rec: 10/12/17 14:19 EA [id number]) Therapeutic Exercises Supine Exercises 3 Supine Exercise Name Isometric: all planes Reps/Minutes x 5 SH x 5 reps 2 Supine Exercise Name Cervical muscles streching Side bilateral Reps/Minutes x 15SH x 2 reps 1 Supine Exercise Name Cervical AROM: flexion, rotation, SB, chin tucking Side bilateral Reps/Minutes 10 reps x 2 Manual Therapy Treatment Soft Tissue Mobilization 1 Body Location Cervical muscles, scalenes, SCM, upper traps Mobilization Type Myofascial Release Rolling Sustained Pressure Trigger Point Release Intensity/Depth Moderate Body Position Supine Manual Traction Cervical Body Position Supine Comments gentle manual traction PT-OP-R Modalities Start: 09/29/17 15:18 Freq: Status: Active Protocol: Document 10/12/17 14:15 EA (Rec: 10/12/17 14:19 EA [id number]) Hot Pack/Cold Pack Treatment Hot Pack Location cervical Patient Position Supine Treatment Duration (minutes) 15 Patient Tolerance Good PT-OP-T Assessment and Plan Start: 09/29/17 15:18 Freq: Status: Active Protocol: Document 10/12/17 14:15 EA (Rec: 10/12/17 14:19 EA [id number]) Physical Therapy Assessment Assessment Summary Assessment No noted signs of discomfort during exercises and gentle PROM. Patient is progressing well. Physical Therapy Plan Next Visit Focus/Plan Next Note Type Treatment Note Next Visit Plan advance as tolerated
--- NOTE | 2017-10-17 17:14 | PT.OTN ---
Current Diagnoses Cervicalgia (10/17/17) Physical Therapy Treatment Note PT-OP-A Visit Information Start: 09/29/17 15:18 Freq: Status: Active Protocol: Document 10/17/17 15:45 EA (Rec: 10/17/17 15:50 EA [id number]) Out-Patient Physical Therapy Visit Information Visit Information Visit Type Treatment Note Visit Start Time 15:15 Visit Stop Time 14:05 Total Visit Minutes 50 Visit Number 5 PT-OP-B Current Condition Start: 09/29/17 15:18 Freq: Status: Active Protocol: Document 09/29/17 15:18 EA (Rec: 09/29/17 15:21 EA [id number]) Current Condition History of Current Condition Onset Date 5 months ago Current Complaints left neck pain History of Current Condition Present condition started on the last week of April 2017 and happens after waking up in the morning; states no significant history of neck or shoulder injury. Pain initially tolerated and gradually worsens in few weeks time and that prompted to see her medical doctor; states today neck has improved since the injury. 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 Prior Treatments and Tests None Future Testing and Treatments Planned None at this time Treatment Goals Patient/Caregiver Goals 1.Eliminate pain 2. Improve neck mobility Prior Functional Status Baseline Function- ADL's Independent Current Functional Impairments (Reported) Functional Limitations- ADL's limited with some ADL head neck positioning Functional Limitations- Other Driving, reading, upright position tolerance Personal Factors Other Personal Factors That May Effect Chronicity of the condition Therapy/Recovery PT-OP-C Subjective Start: 09/29/17 15:18 Freq: Status: Active Protocol: Document 10/17/17 15:45 EA (Rec: 10/17/17 15:50 EA [id number]) OP-PT Subjective Patient Comments Patient Comments Pt reports my neck is little better. PT-OP-F Manual Assessment Start: 09/29/17 15:18 Freq: Status: Active Protocol: Document 09/29/17 15:17 EA (Rec: 10/04/17 11:13 EA [id number]) Manual Assessments Soft Tissue Assessment Soft Tissue Mobility Assessment tightness ti both traps, deep neck muscles, scallenes, LS, SCM PT-OP-H Neuro Start: 09/29/17 15:18 Freq: Status: Active Protocol: Document 08/09/18 15:17 EA (Rec: 10/04/17 11:13 EA [id number]) Sensation Evaluation Gross Sensation Gross Sensation WNL Deep Tendon Reflex & Clonus Assessment Deep Tendon Reflex Bilateral Brachioradialis Deep Tendon Reflex 2+ Normal Bilateral Tricep Deep Tendon Reflex 2+ Normal Bilateral Bicep Deep Tendon Reflex 2+ Normal PT-OP-J Posture/Palpation/Skin Start: 09/29/17 15:18 Freq: Status: Active Protocol: Document 09/29/17 15:18 EA (Rec: 10/04/17 07:32 EA [id number]) Posture Evaluation Position Standing Evaluation View Anterior Head/C-Spine Posture Forward Head Shoulder Posture (L) Rounded (R) Rounded Arm Posture (L) Internally Rotated (R) Internally Rotated Palpation Assessment Location One Palpation Location Left traps, SCM, Deepcervical neck ms. Palpation Findings Soft Tissue Tightness Tenderness PT-OP-K Range of Motion Start: 09/29/17 15:18 Freq: Status: Active Protocol: Document 09/29/17 15:18 EA (Rec: 10/04/17 10:56 EA [id number]) Cervical Spine Range of Motion Cervical Spine Active Testing Position Sitting Flexion 35 Extension 35 Rotation Left 35 Rotation Right 20 Lateral Flexion Left 35 Lateral Flexion Right 30 ROM Limitations Soft Tissue Tightness Pain Comments ROM is limited by pain and tightness Shoulder Goniometric Range of Motion Shoulder Measured in Degrees Right Shoulder ROM WFL Yes Left Shoulder ROM WFL Yes PT-OP-L Special Tests Start: 09/29/17 15:18 Freq: Status: Active Protocol: Document 09/29/17 15:18 EA (Rec: 10/04/17 09:42 EA [id number]) Special Tests Cervical Spine Special Tests Other- 1 Test Results + Comments Facets joint Vertebral Artery Test Results - Spurling's Test Test Results - Shoulder Abduction Test Test Results - Foraminal Compression Test Results - PT-OP-M Strength Start: 09/29/17 15:18 Freq: Status: Active Protocol: Document 09/29/17 15:18 EA (Rec: 10/04/17 09:42 EA [id number]) Cervical Spine Strength Cervical Spine Manual Muscle Testing Flexion (C1-2) 3+ Fair+ Extension 4- Good- Rotation Left 3+ Fair+ Rotation Right 3+ Fair+ Lateral Flexion Left (C3) 3+ Fair+ Lateral Flexion Right (C3) 3+ Fair+ Comments MMT is maybe limited by pain Shoulder Strength Shoulder Manual Muscle Testing Right Horizontal Adduction 4+ Good+ Left Reason Not Measured WFL PT-OP-Q Treatments Start: 09/29/17 15:18 Freq: Status: Active Protocol: Document 10/17/17 15:45 EA (Rec: 10/17/17 15:50 EA [id number]) Therapeutic Exercises Supine Exercises 3 Supine Exercise Name Isometric: all planes Reps/Minutes x 5 SH x 5 reps 2 Supine Exercise Name Cervical muscles streching Side bilateral Reps/Minutes x 15SH x 2 reps 1 Supine Exercise Name Cervical AROM: flexion, rotation, SB, chin tucking Side bilateral Reps/Minutes 10 reps x 2 Manual Therapy Treatment Soft Tissue Mobilization 1 Body Location Cervical muscles, scalenes, SCM, upper traps Mobilization Type Myofascial Release Rolling Sustained Pressure Trigger Point Release Intensity/Depth Moderate Body Position Supine Manual Traction Cervical Body Position Supine Comments gentle manual traction Manual Techniques 1 Type gentle passive stretch Comments xiyiwjw-qjdkq-OGHA-passive stretch PT-OP-R Modalities Start: 09/29/17 15:18 Freq: Status: Active Protocol: Document 10/17/17 15:45 EA (Rec: 10/17/17 15:50 EA [id number]) Hot Pack/Cold Pack Treatment Hot Pack Location cervical Patient Position Supine Treatment Duration (minutes) 15 Patient Tolerance Good PT-OP-T Assessment and Plan Start: 09/29/17 15:18 Freq: Status: Active Protocol: Document 10/17/17 15:45 EA (Rec: 10/17/17 15:50 EA [id number]) Physical Therapy Assessment Assessment Summary Assessment Improved neck ROM noted at this time. Patient is progressing well. Physical Therapy Plan Next Visit Focus/Plan Next Note Type Treatment Note Next Visit Plan advance as tolerated
--- NOTE | 2017-10-20 13:41 | PT.OTN ---
Current Diagnoses Cervicalgia (10/20/17) Physical Therapy Treatment Note PT-OP-A Visit Information Start: 09/29/17 15:18 Freq: Status: Active Protocol: Document 10/20/17 13:26 EA (Rec: 10/20/17 13:33 EA [id number]) Out-Patient Physical Therapy Visit Information Visit Information Visit Start Time 13:00 Visit Stop Time 15:45 Total Visit Minutes 50 Visit Number 6 PT-OP-B Current Condition Start: 09/29/17 15:18 Freq: Status: Active Protocol: Document 09/29/17 15:18 EA (Rec: 09/29/17 15:21 EA [id number]) Current Condition History of Current Condition Onset Date 5 months ago Current Complaints left neck pain History of Current Condition Present condition started on the last week of April 2017 and happens after waking up in the morning; states no significant history of neck or shoulder injury. Pain initially tolereated and gradually worsens in few weeks time and that prompted to see her medical doctor; states today neck has improved since the injury. 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 Prior Treatments and Tests None Future Testing and Treatments Planned None at this time Treatment Goals Patient/Caregiver Goals 1.Eliminate pain 2. Improve neck mobility Prior Functional Status Baseline Function- ADL's Independent Current Functional Impairments (Reported) Functional Limitations- ADL's limited with some ADL head neck positioning Functional Limitations- Other Driving, reading, upright position tolerance Personal Factors Other Personal Factors That May Effect Chronicity of the condition Therapy/Recovery PT-OP-C Subjective Start: 09/29/17 15:18 Freq: Status: Active Protocol: Document 10/20/17 13:26 EA (Rec: 10/20/17 13:33 EA [id number]) OP-PT Subjective Patient Comments Patient Comments Pt reports neck is quites ore after last visit; states she is improving and has been compliant with HEP. PT-OP-F Manual Assessment Start: 09/29/17 15:18 Freq: Status: Active Protocol: Document 09/29/17 15:17 EA (Rec: 10/04/17 11:13 EA [id number]) Manual Assessments Soft Tissue Assessment Soft Tissue Mobility Assessment tightness ti both traps, deep neck muscles, scallenes, LS, SCM PT-OP-H Neuro Start: 09/29/17 15:18 Freq: Status: Active Protocol: Document 09/29/17 15:17 EA (Rec: 10/04/17 11:13 EA [id number]) Sensation Evaluation Gross Sensation Gross Sensation WNL Deep Tendon Reflex & Clonus Assessment Deep Tendon Reflex Bilateral Brachioradialis Deep Tendon Reflex 2+ Normal Bilateral Tricep Deep Tendon Reflex 2+ Normal Bilateral Bicep Deep Tendon Reflex 2+ Normal PT-OP-J Posture/Palpation/Skin Start: 09/29/17 15:18 Freq: Status: Active Protocol: Document 09/29/17 15:18 EA (Rec: 10/04/17 07:32 EA [id number]) Posture Evaluation Position Standing Evaluation View Anterior Head/C-Spine Posture Forward Head Shoulder Posture (L) Rounded (R) Rounded Arm Posture (L) Internally Rotated (R) Internally Rotated Palpation Assessment Location One Palpation Location Left traps, SCM, Deepcervical neck ms. Palpation Findings Soft Tissue Tightness Tenderness PT-OP-K Range of Motion Start: 09/29/17 15:18 Freq: Status: Active Protocol: Document 09/29/17 15:18 EA (Rec: 10/04/17 10:56 EA [id number]) Cervical Spine Range of Motion Cervical Spine Active Testing Position Sitting Flexion 35 Extension 35 Rotation Left 35 Rotation Right 20 Lateral Flexion Left 35 Lateral Flexion Right 30 ROM Limitations Soft Tissue Tightness Pain Comments ROM is limited by pain and tightness Shoulder Goniometric Range of Motion Shoulder Measured in Degrees Right Shoulder ROM WFL Yes Left Shoulder ROM WFL Yes PT-OP-L Special Tests Start: 09/29/17 15:18 Freq: Status: Active Protocol: Document 09/29/17 15:18 EA (Rec: 10/04/17 09:42 EA [id number]) Special Tests Cervical Spine Special Tests Other- 1 Test Results + Comments Facets joint Vertebral Artery Test Results - Spurling's Test Test Results - Shoulder Abduction Test Test Results - Foraminal Compression Test Results - PT-OP-M Strength Start: 09/29/17 15:18 Freq: Status: Active Protocol: Document 09/29/17 15:18 EA (Rec: 10/04/17 09:42 EA [id number]) Cervical Spine Strength Cervical Spine Manual Muscle Testing Flexion (C1-2) 3+ Fair+ Extension 4- Good- Rotation Left 3+ Fair+ Rotation Right 3+ Fair+ Lateral Flexion Left (C3) 3+ Fair+ Lateral Flexion Right (C3) 3+ Fair+ Comments MMT is maybe limited by pain Shoulder Strength Shoulder Manual Muscle Testing Right Horizontal Adduction 4+ Good+ Left Reason Not Measured WFL PT-OP-Q Treatments Start: 09/29/17 15:18 Freq: Status: Active Protocol: Document 10/20/17 13:26 EA (Rec: 10/20/17 13:33 EA [id number]) Therapeutic Exercises Supine Exercises 4 Supine Exercise Name chin thuck Reps/Minutes x 10 reps x 2 sets 3 Supine Exercise Name Isometric: all planes Reps/Minutes x 5 SH x 5 reps Comments supine-sitted position 2 Supine Exercise Name Cervical muscles streching Side bilateral Reps/Minutes x 15SH x 2 reps 1 Supine Exercise Name Cervical AROM: flexion, rotation, SB, chin tucking Side bilateral Reps/Minutes 10 reps x 2 Manual Therapy Treatment Soft Tissue Mobilization 1 Body Location Cervical muscles, scalenes, SCM, upper traps Mobilization Type Myofascial Release Rolling Sustained Pressure Trigger Point Release Intensity/Depth Moderate Body Position Supine Manual Traction Cervical Body Position Supine Comments gentle manual traction Manual Techniques 1 Type gentle passive stretch Comments [id number]-[id number]-passive stretch PT-OP-R Modalities Start: 09/29/17 15:18 Freq: Status: Active Protocol: Document 10/20/17 13:26 EA (Rec: 10/20/17 13:33 EA [id number]) Hot Pack/Cold Pack Treatment Hot Pack Location cervical Patient Position Supine Treatment Duration (minutes) 15 Patient Tolerance Good PT-OP-T Assessment and Plan Start: 09/29/17 15:18 Freq: Status: Active Protocol: Document 10/20/17 13:26 EA (Rec: 10/20/17 13:33 EA [id number]) Physical Therapy Assessment Assessment Summary Assessment Tolerated treatment well. Patient cont. to show improve` ROM after contract-relax passive stretch. Physical Therapy Plan Next Visit Focus/Plan Next Note Type Treatment Note Next Visit Plan Cont with current plan
--- NOTE | 2017-10-25 16:46 | PT.OTN ---
Current Diagnoses Cervicalgia (10/25/17) Physical Therapy Treatment Note PT-OP-A Visit Information Start: 09/29/17 15:18 Freq: Status: Active Protocol: Document 10/25/17 13:40 EA (Rec: 10/25/17 14:15 EA [id number]) Out-Patient Physical Therapy Visit Information Visit Information Visit Start Time 13:45 Visit Stop Time 14:30 Total Visit Minutes 50 Visit Number 7 PT-OP-B Current Condition Start: 09/29/17 15:18 Freq: Status: Active Protocol: Document 09/29/17 15:18 EA (Rec: 09/29/17 15:21 EA [id number]) Current Condition History of Current Condition Onset Date 5 months ago Current Complaints left neck pain History of Current Condition Present condition started on the last week of April 2017 and happens after waking up in the morning; states no significant history of neck or shoulder injury. Pain initially tolereated and gradually worsens in few weeks time and that prompted to see her medical doctor; states today neck has improved since the injury. 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 Prior Treatments and Tests None Future Testing and Treatments Planned None at this time Treatment Goals Patient/Caregiver Goals 1.Eliminate pain 2. Improve neck mobility Prior Functional Status Baseline Function- ADL's Independent Current Functional Impairments (Reported) Functional Limitations- ADL's limited with some ADL head neck positioning Functional Limitations- Other Driving, reading, upright position tolerance Personal Factors Other Personal Factors That May Effect Chronicity of the condition Therapy/Recovery PT-OP-C Subjective Start: 09/29/17 15:18 Freq: Status: Active Protocol: Document 10/25/17 13:40 EA (Rec: 10/25/17 14:15 EA [id number]) OP-PT Subjective Patient Comments Patient Comments Patient reports neck is improving steady' asked if she is good to sleepn on her left side. PT-OP-F Manual Assessment Start: 09/29/17 15:18 Freq: Status: Active Protocol: Document 09/29/17 15:17 EA (Rec: 10/04/17 11:13 EA [id number]) Manual Assessments Soft Tissue Assessment Soft Tissue Mobility Assessment tightness ti both traps, deep neck muscles, scallenes, LS, SCM PT-OP-H Neuro Start: 09/29/17 15:18 Freq: Status: Active Protocol: Document 09/29/17 15:17 EA (Rec: 10/04/17 11:13 EA [id number]) Sensation Evaluation Gross Sensation Gross Sensation WNL Deep Tendon Reflex & Clonus Assessment Deep Tendon Reflex Bilateral Brachioradialis Deep Tendon Reflex 2+ Normal Bilateral Tricep Deep Tendon Reflex 2+ Normal Bilateral Bicep Deep Tendon Reflex 2+ Normal PT-OP-J Posture/Palpation/Skin Start: 09/29/17 15:18 Freq: Status: Active Protocol: Document 09/29/17 15:18 EA (Rec: 10/04/17 07:32 EA [id number]) Posture Evaluation Position Standing Evaluation View Anterior Head/C-Spine Posture Forward Head Shoulder Posture (L) Rounded (R) Rounded Arm Posture (L) Internally Rotated (R) Internally Rotated Palpation Assessment Location One Palpation Location Left traps, SCM, Deepcervical neck ms. Palpation Findings Soft Tissue Tightness Tenderness PT-OP-K Range of Motion Start: 09/29/17 15:18 Freq: Status: Active Protocol: Document 09/29/17 15:18 EA (Rec: 10/04/17 10:56 EA [id number]) Cervical Spine Range of Motion Cervical Spine Active Testing Position Sitting Flexion 35 Extension 35 Rotation Left 35 Rotation Right 20 Lateral Flexion Left 35 Lateral Flexion Right 30 ROM Limitations Soft Tissue Tightness Pain Comments ROM is limited by pain and tightness Shoulder Goniometric Range of Motion Shoulder Measured in Degrees Right Shoulder ROM WFL Yes Left Shoulder ROM WFL Yes PT-OP-L Special Tests Start: 09/29/17 15:18 Freq: Status: Active Protocol: Document 09/29/17 15:18 EA (Rec: 10/04/17 09:42 EA [id number]) Special Tests Cervical Spine Special Tests Other- 1 Test Results + Comments Facets joint Vertebral Artery Test Results - Spurling's Test Test Results - Shoulder Abduction Test Test Results - Foraminal Compression Test Results - PT-OP-M Strength Start: 09/29/17 15:18 Freq: Status: Active Protocol: Document 09/29/17 15:18 EA (Rec: 10/04/17 09:42 EA [id number]) Cervical Spine Strength Cervical Spine Manual Muscle Testing Flexion (C1-2) 3+ Fair+ Extension 4- Good- Rotation Left 3+ Fair+ Rotation Right 3+ Fair+ Lateral Flexion Left (C3) 3+ Fair+ Lateral Flexion Right (C3) 3+ Fair+ Comments MMT is maybe limited by pain Shoulder Strength Shoulder Manual Muscle Testing Right Horizontal Adduction 4+ Good+ Left Reason Not Measured WFL PT-OP-Q Treatments Start: 09/29/17 15:18 Freq: Status: Active Protocol: Document 10/25/17 13:40 EA (Rec: 10/25/17 14:15 EA [id number]) Therapeutic Exercises Supine Exercises 4 Supine Exercise Name chin thuck Reps/Minutes x 10 reps x 2 sets 3 Supine Exercise Name Isometric: all planes Reps/Minutes x 5 SH x 5 reps Comments supine-sitted position 2 Supine Exercise Name Cervical muscles streching Side bilateral Reps/Minutes x 15SH x 2 reps 1 Supine Exercise Name Cervical AROM: flexion, rotation, SB, chin tucking Side bilateral Reps/Minutes 10 reps x 2 Manual Therapy Treatment Soft Tissue Mobilization 1 Body Location Cervical muscles, scalenes, SCM, upper traps Mobilization Type Myofascial Release Rolling Sustained Pressure Trigger Point Release Intensity/Depth Moderate Body Position Supine Manual Techniques 1 Type gentle passive stretch Comments [id number]-[id number]-passive stretch PT-OP-R Modalities Start: 09/29/17 15:18 Freq: Status: Active Protocol: Document 10/25/17 14:16 EA (Rec: 10/25/17 14:17 EA [id number]) Hot Pack/Cold Pack Treatment Hot Pack Patient Position Supine Patient Tolerance Good PT-OP-T Assessment and Plan Start: 09/29/17 15:18 Freq: Status: Active Protocol: Document 10/25/17 13:40 EA (Rec: 10/25/17 14:15 EA [id number]) Physical Therapy Assessment Assessment Summary Assessment Less tenderness with improved ROM noted. Patient cont. to improve. Physical Therapy Plan Next Visit Focus/Plan Next Note Type Treatment Note Next Visit Plan Progress as tolerated
--- NOTE | 2017-10-27 16:36 | PT.OTN ---
Current Diagnoses Cervicalgia (10/27/17) Physical Therapy Treatment Note PT-OP-A Visit Information Start: 09/29/17 15:18 Freq: Status: Active Protocol: Document 10/27/17 13:42 EA (Rec: 10/27/17 14:24 EA [id number]) Out-Patient Physical Therapy Visit Information Visit Information Visit Type Treatment Note Visit Start Time 13:45 Visit Stop Time 14:30 Total Visit Minutes 45 Visit Number 8 PT-OP-B Current Condition Start: 09/29/17 15:18 Freq: Status: Active Protocol: Document 09/29/17 15:18 EA (Rec: 09/29/17 15:21 EA [id number]) Current Condition History of Current Condition Onset Date 5 months ago Current Complaints left neck pain History of Current Condition Present condition started on the last week of April 2017 and happens after waking up in the morning; states no significant history of neck or shoulder injury. Pain initially tolereated and gradually worsens in few weeks time and that prompted to see her medical doctor; states today neck has improved since the injury. 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 Prior Treatments and Tests None Future Testing and Treatments Planned None at this time Treatment Goals Patient/Caregiver Goals 1.Eliminate pain 2. 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 PT-OP-F Manual Assessment Start: 09/29/17 15:18 Freq: Status: Active Protocol: Document 09/29/17 15:17 EA (Rec: 10/04/17 11:13 EA [id number]) Manual Assessments Soft Tissue Assessment Soft Tissue Mobility Assessment tightness ti both traps, deep neck muscles, scallenes, LS, SCM PT-OP-H Neuro Start: 09/29/17 15:18 Freq: Status: Active Protocol: Document 09/29/17 15:17 EA (Rec: 10/04/17 11:13 EA [id number]) Sensation Evaluation Gross Sensation Gross Sensation WNL Deep Tendon Reflex & Clonus Assessment Deep Tendon Reflex Bilateral Brachioradialis Deep Tendon Reflex 2+ Normal Bilateral Tricep Deep Tendon Reflex 2+ Normal Bilateral Bicep Deep Tendon Reflex 2+ Normal PT-OP-J Posture/Palpation/Skin Start: 09/29/17 15:18 Freq: Status: Active Protocol: Document 09/29/17 15:18 EA (Rec: 10/04/17 07:32 EA [id number]) Posture Evaluation Position Standing Evaluation View Anterior Head/C-Spine Posture Forward Head Shoulder Posture (L) Rounded (R) Rounded Arm Posture (L) Internally Rotated (R) Internally Rotated Palpation Assessment Location One Palpation Location Left traps, SCM, Deepcervical neck ms. Palpation Findings Soft Tissue Tightness Tenderness PT-OP-K Range of Motion Start: 09/29/17 15:18 Freq: Status: Active Protocol: Document 09/29/17 15:18 EA (Rec: 10/04/17 10:56 EA [id number]) Cervical Spine Range of Motion Cervical Spine Active Testing Position Sitting Flexion 35 Extension 35 Rotation Left 35 Rotation Right 20 Lateral Flexion Left 35 Lateral Flexion Right 30 ROM Limitations Soft Tissue Tightness Pain Comments ROM is limited by pain and tightness Shoulder Goniometric Range of Motion Shoulder Measured in Degrees Right Shoulder ROM WFL Yes Left Shoulder ROM WFL Yes PT-OP-L Special Tests Start: 09/29/17 15:18 Freq: Status: Active Protocol: Document 09/29/17 15:18 EA (Rec: 10/04/17 09:42 EA [id number]) Special Tests Cervical Spine Special Tests Other- 1 Test Results + Comments Facets joint Vertebral Artery Test Results - Spurling's Test Test Results - Shoulder Abduction Test Test Results - Foraminal Compression Test Results - PT-OP-M Strength Start: 09/29/17 15:18 Freq: Status: Active Protocol: Document 09/29/17 15:18 EA (Rec: 10/04/17 09:42 EA [id number]) Cervical Spine Strength Cervical Spine Manual Muscle Testing Flexion (C1-2) 3+ Fair+ Extension 4- Good- Rotation Left 3+ Fair+ Rotation Right 3+ Fair+ Lateral Flexion Left (C3) 3+ Fair+ Lateral Flexion Right (C3) 3+ Fair+ Comments MMT is maybe limited by pain Shoulder Strength Shoulder Manual Muscle Testing Right Horizontal Adduction 4+ Good+ Left Reason Not Measured WFL PT-OP-Q Treatments Start: 09/29/17 15:18 Freq: Status: Active Protocol: Document 10/27/17 13:42 EA (Rec: 10/27/17 14:24 EA [id number]) Therapeutic Exercises Supine Exercises 4 Supine Exercise Name chin thuck Reps/Minutes x 10 reps x 2 sets 3 Supine Exercise Name Isometric: all planes Reps/Minutes x 5 SH x 5 reps Comments supine-sitted position 2 Supine Exercise Name Cervical muscles streching Side bilateral Reps/Minutes x 15SH x 2 reps 1 Supine Exercise Name Cervical AROM: flexion, rotation, SB, chin tucking Side bilateral Reps/Minutes 10 reps x 2 Manual Therapy Treatment Soft Tissue Mobilization 1 Body Location Cervical muscles, scalenes, SCM, upper traps Mobilization Type Myofascial Release Rolling Sustained Pressure Trigger Point Release Intensity/Depth Moderate Body Position Supine Manual Traction Cervical Body Position Supine Comments gentle manual traction Manual Techniques 1 Type gentle passive stretch Comments [id number]-cnssj-RBNY-passive stretch PT-OP-R Modalities Start: 09/29/17 15:18 Freq: Status: Active Protocol: Document 10/27/17 13:42 EA (Rec: 10/27/17 14:24 EA [id number]) Hot Pack/Cold Pack Treatment Hot Pack Patient Position Supine Patient Tolerance Good PT-OP-T Assessment and Plan Start: 09/29/17 15:18 Freq: Status: Active Protocol: Document 10/27/17 13:42 EA (Rec: 10/27/17 14:24 EA [id number]) Physical Therapy Assessment Assessment Summary Assessment Patient cont. to progress. Cervical paraspinals tenderness is much less at this time. Physical Therapy Plan Next Visit Focus/Plan Next Note Type Treatment Note Next Visit Plan Progress as tolerated
--- NOTE | 2017-10-31 15:28 | PT.OTN ---
Current Diagnoses Cervicalgia (10/31/17) Physical Therapy Treatment Note PT-OP-A Visit Information Start: 09/29/17 15:18 Freq: Status: Active Protocol: Document 10/31/17 15:25 EA (Rec: 10/31/17 15:28 EA [id number]) Out-Patient Physical Therapy Visit Information Visit Information Visit Type Treatment Note Visit Start Time 13:45 Visit Stop Time 14:30 Total Visit Minutes 45 Visit Number 9 PT-OP-B Current Condition Start: 09/29/17 15:18 Freq: Status: Active Protocol: Document 09/29/17 15:18 EA (Rec: 09/29/17 15:21 EA [id number]) Current Condition History of Current Condition Onset Date 5 months ago Current Complaints left neck pain History of Current Condition Present condition started on the last week of April 2017 and happens after waking up in the morning; states no significant history of neck or shoulder injury. Pain initially tolereated and gradually worsens in few weeks time and that prompted to see her medical doctor; states today neck has improved since the injury. 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 Prior Treatments and Tests None Future Testing and Treatments Planned None at this time Treatment Goals Patient/Caregiver Goals 1.Eliminate pain 2. Improve neck mobility Prior Functional Status Baseline Function- ADL's Independent Current Functional Impairments (Reported) Functional Limitations- ADL's limited with some ADL head neck positioning Functional Limitations- Other Driving, reading, upright position tolerance Personal Factors Other Personal Factors That May Effect Chronicity of the condition Therapy/Recovery PT-OP-C Subjective Start: 09/29/17 15:18 Freq: Status: Active Protocol: Document 10/31/17 15:25 EA (Rec: 10/31/17 15:28 EA [id number]) OP-PT Subjective Patient Comments Patient Comments Patient reports compliant with HEP and feels neck is improving well. PT-OP-F Manual Assessment Start: 09/29/17 15:18 Freq: Status: Active Protocol: Document 09/29/17 15:17 EA (Rec: 10/04/17 11:13 EA [id number]) Manual Assessments Soft Tissue Assessment Soft Tissue Mobility Assessment tightness ti both traps, deep neck muscles, scallenes, LS, SCM PT-OP-H Neuro Start: 09/29/17 15:18 Freq: Status: Active Protocol: Document 09/29/17 15:17 EA (Rec: 10/04/17 11:13 EA [id number]) Sensation Evaluation Gross Sensation Gross Sensation WNL Deep Tendon Reflex & Clonus Assessment Deep Tendon Reflex Bilateral Brachioradialis Deep Tendon Reflex 2+ Normal Bilateral Tricep Deep Tendon Reflex 2+ Normal Bilateral Bicep Deep Tendon Reflex 2+ Normal PT-OP-J Posture/Palpation/Skin Start: 09/29/17 15:18 Freq: Status: Active Protocol: Document 09/29/17 15:18 EA (Rec: 10/04/17 07:32 EA [id number]) Posture Evaluation Position Standing Evaluation View Anterior Head/C-Spine Posture Forward Head Shoulder Posture (L) Rounded (R) Rounded Arm Posture (L) Internally Rotated (R) Internally Rotated Palpation Assessment Location One Palpation Location Left traps, SCM, Deepcervical neck ms. Palpation Findings Soft Tissue Tightness Tenderness PT-OP-K Range of Motion Start: 09/29/17 15:18 Freq: Status: Active Protocol: Document 09/29/17 15:18 EA (Rec: 10/04/17 10:56 EA [id number]) Cervical Spine Range of Motion Cervical Spine Active Testing Position Sitting Flexion 35 Extension 35 Rotation Left 35 Rotation Right 20 Lateral Flexion Left 35 Lateral Flexion Right 30 ROM Limitations Soft Tissue Tightness Pain Comments ROM is limited by pain and tightness Shoulder Goniometric Range of Motion Shoulder Measured in Degrees Right Shoulder ROM WFL Yes Left Shoulder ROM WFL Yes PT-OP-L Special Tests Start: 09/29/17 15:18 Freq: Status: Active Protocol: Document 09/29/17 15:18 EA (Rec: 10/04/17 09:42 EA [id number]) Special Tests Cervical Spine Special Tests Other- 1 Test Results + Comments Facets joint Vertebral Artery Test Results - Spurling's Test Test Results - Shoulder Abduction Test Test Results - Foraminal Compression Test Results - PT-OP-M Strength Start: 09/29/17 15:18 Freq: Status: Active Protocol: Document 09/29/17 15:18 EA (Rec: 10/04/17 09:42 EA [id number]) Cervical Spine Strength Cervical Spine Manual Muscle Testing Flexion (C1-2) 3+ Fair+ Extension 4- Good- Rotation Left 3+ Fair+ Rotation Right 3+ Fair+ Lateral Flexion Left (C3) 3+ Fair+ Lateral Flexion Right (C3) 3+ Fair+ Comments MMT is maybe limited by pain Shoulder Strength Shoulder Manual Muscle Testing Right Horizontal Adduction 4+ Good+ Left Reason Not Measured WFL PT-OP-Q Treatments Start: 09/29/17 15:18 Freq: Status: Active Protocol: Document 10/31/17 15:25 EA (Rec: 10/31/17 15:28 EA [id number]) Therapeutic Exercises Supine Exercises 4 Supine Exercise Name chin thuck Reps/Minutes x 10 reps x 2 sets 3 Supine Exercise Name Isometric: all planes Reps/Minutes x 5 SH x 5 reps Comments supine-sitted position 2 Supine Exercise Name Cervical muscles streching Side bilateral Reps/Minutes x 15SH x 2 reps 1 Supine Exercise Name Cervical AROM: flexion, rotation, SB, chin tucking Side bilateral Reps/Minutes 10 reps x 2 Manual Therapy Treatment Soft Tissue Mobilization 1 Body Location Cervical muscles, scalenes, SCM, upper traps Mobilization Type Myofascial Release Rolling Sustained Pressure Trigger Point Release Intensity/Depth Moderate Body Position Supine Manual Techniques 1 Type gentle passive stretch Comments [id number]-passive stretch PT-OP-R Modalities Start: 09/29/17 15:18 Freq: Status: Active Protocol: Document 10/31/17 15:25 EA (Rec: 10/31/17 15:28 EA [id number]) Hot Pack/Cold Pack Treatment Hot Pack Patient Position Supine Patient Tolerance Good PT-OP-T Assessment and Plan Start: 09/29/17 15:18 Freq: Status: Active Protocol: Document 10/31/17 15:25 EA (Rec: 10/31/17 15:28 EA [id number]) Physical Therapy Assessment Assessment Summary Assessment Tolerated treatment well. Patient to re-assess next session and possible for discharge if no more complaint . Physical Therapy Plan Next Visit Focus/Plan Next Note Type Progress Note Next Visit Plan Possible discharge.
--- NOTE | 2017-11-03 15:07 | PT.OTN ---
Current Diagnoses Cervicalgia (11/03/17) Physical Therapy Treatment Note PT-OP-A Visit Information Start: 09/29/17 15:18 Freq: Status: Active Protocol: Document 11/03/17 14:25 EA (Rec: 11/03/17 15:07 EA [id number]) Out-Patient Physical Therapy Visit Information Visit Information Visit Type Treatment Note Visit Note Progress report perform to this date Visit Start Time 13:45 Visit Stop Time 14:30 Total Visit Minutes 45 Visit Number 10 PT-OP-B Current Condition Start: 09/29/17 15:18 Freq: Status: Active Protocol: Document 09/29/17 15:18 EA (Rec: 09/29/17 15:21 EA [id number]) Current Condition History of Current Condition Onset Date 5 months ago Current Complaints left neck pain History of Current Condition Present condition started on the last week of April 2017 and happens after waking up in the morning; states no significant history of neck or shoulder injury. Pain initially tolereated and gradually worsens in few weeks time and that prompted to see her medical doctor; states today neck has improved since the injury. 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 Prior Treatments and Tests None Future Testing and Treatments Planned None at this time Treatment Goals Patient/Caregiver Goals 1.Eliminate pain 2. Improve neck mobility Prior Functional Status Baseline Function- ADL's Independent Current Functional Impairments (Reported) Functional Limitations- ADL's limited with some ADL head neck positioning Functional Limitations- Other Driving, reading, upright position tolerance Personal Factors Other Personal Factors That May Effect Chronicity of the condition Therapy/Recovery PT-OP-C Subjective Start: 09/29/17 15:18 Freq: Status: Active Protocol: Document 11/03/17 14:25 EA (Rec: 11/03/17 15:07 EA [id number]) OP-PT Subjective Patient Comments Patient Comments Patient reports neck is quite sore 2 days ago after laying to left side; states sh is much feeling better today and her neighbor says that her neck posture is improving. Patient Reported Progress Improving PT-OP-F Manual Assessment Start: 09/29/17 15:18 Freq: Status: Active Protocol: Document 09/29/17 15:17 EA (Rec: 10/04/17 11:13 EA [id number]) Manual Assessments Soft Tissue Assessment Soft Tissue Mobility Assessment tightness ti both traps, deep neck muscles, scallenes, LS, SCM PT-OP-H Neuro Start: 09/29/17 15:18 Freq: Status: Active Protocol: Document 09/29/17 15:17 EA (Rec: 10/04/17 11:13 EA [id number]) Sensation Evaluation Gross Sensation Gross Sensation WNL Deep Tendon Reflex & Clonus Assessment Deep Tendon Reflex Bilateral Brachioradialis Deep Tendon Reflex 2+ Normal Bilateral Tricep Deep Tendon Reflex 2+ Normal Bilateral Bicep Deep Tendon Reflex 2+ Normal PT-OP-J Posture/Palpation/Skin Start: 09/29/17 15:18 Freq: Status: Active Protocol: Document 09/29/17 15:18 EA (Rec: 10/04/17 07:32 EA [id number]) Posture Evaluation Position Standing Evaluation View Anterior Head/C-Spine Posture Forward Head Shoulder Posture (L) Rounded (R) Rounded Arm Posture (L) Internally Rotated (R) Internally Rotated Palpation Assessment Location One Palpation Location Left traps, SCM, Deepcervical neck ms. Palpation Findings Soft Tissue Tightness Tenderness PT-OP-K Range of Motion Start: 09/29/17 15:18 Freq: Status: Active Protocol: Document 11/03/17 14:25 EA (Rec: 11/03/17 15:07 EA [id number]) Cervical Spine Range of Motion Cervical Spine Active Testing Position Sitting Flexion 41 Extension 55 Rotation Left 48 Rotation Right 41 Lateral Flexion Left 41 Lateral Flexion Right 40 PT-OP-L Special Tests Start: 09/29/17 15:18 Freq: Status: Active Protocol: Document 09/29/17 15:18 EA (Rec: 10/04/17 09:42 EA [id number]) Special Tests Cervical Spine Special Tests Other- 1 Test Results + Comments Facets joint Vertebral Artery Test Results - Spurling's Test Test Results - Shoulder Abduction Test Test Results - Foraminal Compression Test Results - PT-OP-M Strength Start: 09/29/17 15:18 Freq: Status: Active Protocol: Document 09/29/17 15:18 EA (Rec: 10/04/17 09:42 EA [id number]) Cervical Spine Strength Cervical Spine Manual Muscle Testing Flexion (C1-2) 3+ Fair+ Extension 4- Good- Rotation Left 3+ Fair+ Rotation Right 3+ Fair+ Lateral Flexion Left (C3) 3+ Fair+ Lateral Flexion Right (C3) 3+ Fair+ Comments MMT is maybe limited by pain Shoulder Strength Shoulder Manual Muscle Testing Right Horizontal Adduction 4+ Good+ Left Reason Not Measured WFL PT-OP-Q Treatments Start: 09/29/17 15:18 Freq: Status: Active Protocol: Document 11/03/17 14:25 EA (Rec: 11/03/17 15:07 EA [id number]) Therapeutic Exercises Supine Exercises 4 Supine Exercise Name Gentle stretch to all planes Reps/Minutes x 15SH x 2 reps 3 Supine Exercise Name Isometric: all planes Reps/Minutes x 5 SH x 5 reps Comments supine-sitted position 2 Supine Exercise Name Cervical muscles streching Side bilateral Reps/Minutes x 15SH x 2 reps 1 Supine Exercise Name Cervical AROM: flexion, rotation, SB, chin tucking Side bilateral Reps/Minutes 10 reps x 2 Manual Therapy Treatment Soft Tissue Mobilization 1 Body Location Cervical muscles, scalenes, SCM, upper traps Mobilization Type Myofascial Release Rolling Sustained Pressure Trigger Point Release Intensity/Depth Moderate Body Position Supine Manual Traction Cervical Body Position Supine Comments gentle manual traction Manual Techniques 1 Type gentle passive stretch Comments [id number]-[id number]-passive stretch PT-OP-R Modalities Start: 09/29/17 15:18 Freq: Status: Active Protocol: Document 11/03/17 15:07 EA (Rec: 11/03/17 15:07 EA [id number]) Hot Pack/Cold Pack Treatment Hot Pack Patient Position Supine Patient Tolerance Good PT-OP-T Assessment and Plan Start: 09/29/17 15:18 Freq: Status: Active Protocol: Document 11/03/17 14:25 EA (Rec: 11/03/17 15:07 EA [id number]) Physical Therapy Assessment Progress Towards Goals Progress Towards Goals Progressing Toward Goals Assessment Summary Assessment Patient cont to progress as to pain and ROM. Cont with current plan. Physical Therapy Plan Next Visit Focus/Plan Next Note Type Treatment Note Next Visit Plan Advance as tolerated.
--- NOTE | 2017-11-07 13:01 | PT.OTN ---
Current Diagnoses Cervicalgia (11/07/17) Physical Therapy Treatment Note PT-OP-A Visit Information Start: 09/29/17 15:18 Freq: Status: Active Protocol: Document 11/07/17 10:18 EA (Rec: 11/07/17 11:00 EA [id number]) Out-Patient Physical Therapy Visit Information Visit Information Visit Type Treatment Note Visit Start Time 10:30 Visit Stop Time 11:10 Total Visit Minutes 40 Visit Number 11 PT-OP-B Current Condition Start: 09/29/17 15:18 Freq: Status: Active Protocol: Document 09/29/17 15:18 EA (Rec: 09/29/17 15:21 EA [id number]) Current Condition History of Current Condition Onset Date 5 months ago Current Complaints left neck pain History of Current Condition Present condition started on the last week of April 2017 and happens after waking up in the morning; states no significant history of neck or shoulder injury. Pain initially tolereated and gradually worsens in few weeks time and that prompted to see her medical doctor; states today neck has improved since the injury. 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 Prior Treatments and Tests None Future Testing and Treatments Planned None at this time Treatment Goals Patient/Caregiver Goals 1.Eliminate pain 2. Improve neck mobility Prior Functional Status Baseline Function- ADL's Independent Current Functional Impairments (Reported) Functional Limitations- ADL's limited with some ADL head neck positioning Functional Limitations- Other Driving, reading, upright position tolerance Personal Factors Other Personal Factors That May Effect Chronicity of the condition Therapy/Recovery PT-OP-C Subjective Start: 09/29/17 15:18 Freq: Status: Active Protocol: Document 11/07/17 10:18 EA (Rec: 11/07/17 11:00 EA [id number]) OP-PT Subjective Patient Comments Patient Comments Patient reports neck pain is always less after every treatment; states it kept coming back when at home. Pt also reports that she has been compliant with HEP. PT-OP-F Manual Assessment Start: 09/29/17 15:18 Freq: Status: Active Protocol: Document 09/29/17 15:17 EA (Rec: 10/04/17 11:13 EA [id number]) Manual Assessments Soft Tissue Assessment Soft Tissue Mobility Assessment tightness ti both traps, deep neck muscles, scalenes, LS, SCM PT-OP-H Neuro Start: 09/29/17 15:18 Freq: Status: Active Protocol: Document 09/29/17 15:17 EA (Rec: 10/04/17 11:13 EA [id number]) Sensation Evaluation Gross Sensation Gross Sensation WNL Deep Tendon Reflex & Clonus Assessment Deep Tendon Reflex Bilateral Brachioradialis Deep Tendon Reflex 2+ Normal Bilateral Tricep Deep Tendon Reflex 2+ Normal Bilateral Bicep Deep Tendon Reflex 2+ Normal PT-OP-J Posture/Palpation/Skin Start: 09/29/17 15:18 Freq: Status: Active Protocol: Document 09/29/17 15:18 EA (Rec: 10/04/17 07:32 EA [id number]) Posture Evaluation Position Standing Evaluation View Anterior Head/C-Spine Posture Forward Head Shoulder Posture (L) Rounded (R) Rounded Arm Posture (L) Internally Rotated (R) Internally Rotated Palpation Assessment Location One Palpation Location Left traps, SCM, Deep cervical neck ms. Palpation Findings Soft Tissue Tightness Tenderness PT-OP-K Range of Motion Start: 09/29/17 15:18 Freq: Status: Active Protocol: Document 11/03/17 14:25 EA (Rec: 11/03/17 15:07 EA [id number]) Cervical Spine Range of Motion Cervical Spine Active Testing Position Sitting Flexion 41 Extension 55 Rotation Left 48 Rotation Right 41 Lateral Flexion Left 41 Lateral Flexion Right 40 PT-OP-L Special Tests Start: 09/29/17 15:18 Freq: Status: Active Protocol: Document 09/29/17 15:18 EA (Rec: 10/04/17 09:42 EA [id number]) Special Tests Cervical Spine Special Tests Other- 1 Test Results + Comments Facets joint Vertebral Artery Test Results - Spurling's Test Test Results - Shoulder Abduction Test Test Results - Foraminal Compression Test Results - PT-OP-M Strength Start: 09/29/17 15:18 Freq: Status: Active Protocol: Document 09/29/17 15:18 EA (Rec: 10/04/17 09:42 EA [id number]) Cervical Spine Strength Cervical Spine Manual Muscle Testing Flexion (C1-2) 3+ Fair+ Extension 4- Good- Rotation Left 3+ Fair+ Rotation Right 3+ Fair+ Lateral Flexion Left (C3) 3+ Fair+ Lateral Flexion Right (C3) 3+ Fair+ Comments MMT is maybe limited by pain Shoulder Strength Shoulder Manual Muscle Testing Right Horizontal Adduction 4+ Good+ Left Reason Not Measured WFL PT-OP-Q Treatments Start: 09/29/17 15:18 Freq: Status: Active Protocol: Document 11/07/17 10:18 EA (Rec: 11/07/17 11:00 EA [id number]) Therapeutic Exercises Supine Exercises 4 Supine Exercise Name Gentle stretch to all planes Reps/Minutes x 15SH x 2 reps 3 Supine Exercise Name Isometric: all planes Reps/Minutes x 5 SH x 5 reps Comments supine-sitted position 2 Supine Exercise Name Cervical muscles streching Side bilateral Reps/Minutes x 15SH x 2 reps 1 Supine Exercise Name Cervical AROM: flexion, rotation, SB, chin tucking Side bilateral Reps/Minutes 10 reps x 2 Sidelying Exercises 1 Sidelying Exercise Name Rotation; SB Side bilateral Reps/Minutes x 10 repos x 2 sets Manual Therapy Treatment Soft Tissue Mobilization 1 Body Location Cervical muscles, scalenes, SCM, upper traps Mobilization Type Myofascial Release Rolling Sustained Pressure Trigger Point Release Intensity/Depth Moderate Body Position Supine Manual Techniques 1 Type gentle passive stretch Comments qdlfmls-[id number]-FYLK-passive stretch PT-OP-R Modalities Start: 09/29/17 15:18 Freq: Status: Active Protocol: Document 11/07/17 10:18 EA (Rec: 11/07/17 11:00 EA [id number]) Hot Pack/Cold Pack Treatment Hot Pack Patient Position Supine Patient Tolerance Good PT-OP-T Assessment and Plan Start: 09/29/17 15:18 Freq: Status: Active Protocol: Document 11/07/17 10:18 EA (Rec: 11/07/17 11:00 EA [id number]) Physical Therapy Assessment Assessment Summary Assessment Noted PROm near to normal in planes; discomfort only noted at left rotation end range. Patient is progressing well. Physical Therapy Plan Next Visit Focus/Plan Next Note Type Treatment Note Next Visit Plan Continue AROM against gravity.
--- NOTE | 2017-11-17 13:21 | PT.OTN ---
Current Diagnoses Cervicalgia (11/17/17) Physical Therapy Treatment Note PT-OP-A Visit Information Start: 09/29/17 15:18 Freq: Status: Active Protocol: Document 11/17/17 12:46 EA (Rec: 11/17/17 12:51 EA [id number]) Out-Patient Physical Therapy Visit Information Visit Information Visit Type Treatment Note Visit Start Time 12:15 Visit Stop Time 13:00 Total Visit Minutes 40 Visit Number 12 PT-OP-B Current Condition Start: 09/29/17 15:18 Freq: Status: Active Protocol: Document 09/29/17 15:18 EA (Rec: 09/29/17 15:21 EA [id number]) Current Condition History of Current Condition Onset Date 5 months ago Current Complaints left neck pain History of Current Condition Present condition started on the last week of April 2017 and happens after waking up in the morning; states no significant history of neck or shoulder injury. Pain initially tolereated and gradually worsens in few weeks time and that prompted to see her medical doctor; states today neck has improved since the injury. 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 Prior Treatments and Tests None Future Testing and Treatments Planned None at this time Treatment Goals Patient/Caregiver Goals 1.Eliminate pain 2. Improve neck mobility Prior Functional Status Baseline Function- ADL's Independent Current Functional Impairments (Reported) Functional Limitations- ADL's limited with some ADL head neck positioning Functional Limitations- Other Driving, reading, upright position tolerance Personal Factors Other Personal Factors That May Effect Chronicity of the condition Therapy/Recovery PT-OP-C Subjective Start: 09/29/17 15:18 Freq: Status: Active Protocol: Document 11/17/17 12:46 EA (Rec: 11/17/17 12:51 EA [id number]) OP-PT Subjective Patient Comments Patient Comments Pt reports sleeps is much better and does not wake her up due to neck pain; reports slight pain with rotation. Pt also reports she has been compliant with HEP. PT-OP-F Manual Assessment Start: 09/29/17 15:18 Freq: Status: Active Protocol: Document 09/29/17 15:17 EA (Rec: 10/04/17 11:13 EA [id number]) Manual Assessments Soft Tissue Assessment Soft Tissue Mobility Assessment tightness ti both traps, deep neck muscles, scallenes, LS, SCM PT-OP-H Neuro Start: 09/29/17 15:18 Freq: Status: Active Protocol: Document 09/29/17 15:17 EA (Rec: 10/04/17 11:13 EA [id number]) Sensation Evaluation Gross Sensation Gross Sensation WNL Deep Tendon Reflex & Clonus Assessment Deep Tendon Reflex Bilateral Brachioradialis Deep Tendon Reflex 2+ Normal Bilateral Tricep Deep Tendon Reflex 2+ Normal Bilateral Bicep Deep Tendon Reflex 2+ Normal PT-OP-J Posture/Palpation/Skin Start: 09/29/17 15:18 Freq: Status: Active Protocol: Document 09/29/17 15:18 EA (Rec: 10/04/17 07:32 EA [id number]) Posture Evaluation Position Standing Evaluation View Anterior Head/C-Spine Posture Forward Head Shoulder Posture (L) Rounded (R) Rounded Arm Posture (L) Internally Rotated (R) Internally Rotated Palpation Assessment Location One Palpation Location Left traps, SCM, Deepcervical neck ms. Palpation Findings Soft Tissue Tightness Tenderness PT-OP-K Range of Motion Start: 09/29/17 15:18 Freq: Status: Active Protocol: Document 11/03/17 14:25 EA (Rec: 11/03/17 15:07 EA [id number]) Cervical Spine Range of Motion Cervical Spine Active Testing Position Sitting Flexion 41 Extension 55 Rotation Left 48 Rotation Right 41 Lateral Flexion Left 41 Lateral Flexion Right 40 PT-OP-L Special Tests Start: 09/29/17 15:18 Freq: Status: Active Protocol: Document 09/29/17 15:18 EA (Rec: 10/04/17 09:42 EA [id number]) Special Tests Cervical Spine Special Tests Other- 1 Test Results + Comments Facets joint Vertebral Artery Test Results - Spurling's Test Test Results - Shoulder Abduction Test Test Results - Foraminal Compression Test Results - PT-OP-M Strength Start: 09/29/17 15:18 Freq: Status: Active Protocol: Document 09/29/17 15:18 EA (Rec: 10/04/17 09:42 EA [id number]) Cervical Spine Strength Cervical Spine Manual Muscle Testing Flexion (C1-2) 3+ Fair+ Extension 4- Good- Rotation Left 3+ Fair+ Rotation Right 3+ Fair+ Lateral Flexion Left (C3) 3+ Fair+ Lateral Flexion Right (C3) 3+ Fair+ Comments MMT is maybe limited by pain Shoulder Strength Shoulder Manual Muscle Testing Right Horizontal Adduction 4+ Good+ Left Reason Not Measured WFL PT-OP-Q Treatments Start: 09/29/17 15:18 Freq: Status: Active Protocol: Document 11/17/17 12:46 EA (Rec: 11/17/17 12:51 EA [id number]) Therapeutic Exercises Supine Exercises 4 Supine Exercise Name Gentle stretch to all planes Reps/Minutes x 15SH x 2 reps 3 Supine Exercise Name Isometric: all planes Reps/Minutes x 5 SH x 10 reps Comments supine-sitted position 2 Supine Exercise Name Cervical muscles streching Side bilateral Reps/Minutes x 15SH x 2 reps 1 Supine Exercise Name Cervical AROM: flexion, rotation, SB, chin tucking Side bilateral Reps/Minutes 15 reps x 2 Sidelying Exercises 1 Sidelying Exercise Name Rotation; SB Side bilateral Reps/Minutes x 10 repos x 2 sets Manual Therapy Treatment Soft Tissue Mobilization 1 Body Location Cervical muscles, scalenes, SCM, upper traps Mobilization Type Myofascial Release Rolling Sustained Pressure Trigger Point Release Intensity/Depth Deep Body Position Supine Manual Techniques 1 Type gentle passive stretch Comments islegrs-cfvoj-KIFZ-passive stretch PT-OP-R Modalities Start: 09/29/17 15:18 Freq: Status: Active Protocol: Document 11/17/17 12:52 EA (Rec: 11/17/17 12:52 EA [id number]) Hot Pack/Cold Pack Treatment Hot Pack Patient Position Supine Patient Tolerance Good PT-OP-T Assessment and Plan Start: 09/29/17 15:18 Freq: Status: Active Protocol: Document 11/17/17 12:46 EA (Rec: 11/17/17 12:51 EA [id number]) Physical Therapy Assessment Assessment Summary Assessment Patient neck AP of motion is almost near to normal in all planes except extension. Patient continue to progress. Physical Therapy Plan Next Visit Focus/Plan Next Note Type Treatment Note Next Visit Plan Cont AROM against gravity.
--- NOTE | 2017-11-23 11:11 | PT.OTN ---
Current Diagnoses Cervicalgia (11/23/17) Physical Therapy Treatment Note PT-OP-A Visit Information Start: 09/29/17 15:18 Freq: Status: Active Protocol: Document 11/23/17 10:31 EA (Rec: 11/23/17 11:01 EA [id number]) Out-Patient Physical Therapy Visit Information Visit Information Visit Type Treatment Note Visit Start Time 10:30 Visit Stop Time 11:10 Total Visit Minutes 40 Visit Number 13 PT-OP-B Current Condition Start: 09/29/17 15:18 Freq: Status: Active Protocol: Document 09/29/17 15:18 EA (Rec: 09/29/17 15:21 EA [id number]) Current Condition History of Current Condition Onset Date 5 months ago Current Complaints left neck pain History of Current Condition Present condition started on the last week of April 2017 and happens after waking up in the morning; states no significant history of neck or shoulder injury. Pain initially tolereated and gradually worsens in few weeks time and that prompted to see her medical doctor; states today neck has improved since the injury. 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 Prior Treatments and Tests None Future Testing and Treatments Planned None at this time Treatment Goals Patient/Caregiver Goals 1.Eliminate pain 2. Improve neck mobility Prior Functional Status Baseline Function- ADL's Independent Current Functional Impairments (Reported) Functional Limitations- ADL's limited with some ADL head neck positioning Functional Limitations- Other Driving, reading, upright position tolerance Personal Factors Other Personal Factors That May Effect Chronicity of the condition Therapy/Recovery PT-OP-C Subjective Start: 09/29/17 15:18 Freq: Status: Active Protocol: Document 11/23/17 10:31 EA (Rec: 11/23/17 11:01 EA [id number]) OP-PT Subjective Patient Comments Patient Comments Pt reports able to sleep toward left side with no increased in symptoms; states last night minor tovar and discomfort but much better at thios time. Overall she feels much improved. PT-OP-F Manual Assessment Start: 09/29/17 15:18 Freq: Status: Active Protocol: Document 09/29/17 15:17 EA (Rec: 10/04/17 11:13 EA [id number]) Manual Assessments Soft Tissue Assessment Soft Tissue Mobility Assessment tightness ti both traps, deep neck muscles, scallenes, LS, SCM PT-OP-H Neuro Start: 09/29/17 15:18 Freq: Status: Active Protocol: Document 09/29/17 15:17 EA (Rec: 10/04/17 11:13 EA [id number]) Sensation Evaluation Gross Sensation Gross Sensation WNL Deep Tendon Reflex & Clonus Assessment Deep Tendon Reflex Bilateral Brachioradialis Deep Tendon Reflex 2+ Normal Bilateral Tricep Deep Tendon Reflex 2+ Normal Bilateral Bicep Deep Tendon Reflex 2+ Normal PT-OP-J Posture/Palpation/Skin Start: 09/29/17 15:18 Freq: Status: Active Protocol: Document 09/29/17 15:18 EA (Rec: 10/04/17 07:32 EA [id number]) Posture Evaluation Position Standing Evaluation View Anterior Head/C-Spine Posture Forward Head Shoulder Posture (L) Rounded (R) Rounded Arm Posture (L) Internally Rotated (R) Internally Rotated Palpation Assessment Location One Palpation Location Left traps, SCM, Deepcervical neck ms. Palpation Findings Soft Tissue Tightness Tenderness PT-OP-K Range of Motion Start: 09/29/17 15:18 Freq: Status: Active Protocol: Document 11/03/17 14:25 EA (Rec: 11/03/17 15:07 EA [id number]) Cervical Spine Range of Motion Cervical Spine Active Testing Position Sitting Flexion 41 Extension 55 Rotation Left 48 Rotation Right 41 Lateral Flexion Left 41 Lateral Flexion Right 40 PT-OP-L Special Tests Start: 09/29/17 15:18 Freq: Status: Active Protocol: Document 09/29/17 15:18 EA (Rec: 10/04/17 09:42 EA [id number]) Special Tests Cervical Spine Special Tests Other- 1 Test Results + Comments Facets joint Vertebral Artery Test Results - Spurling's Test Test Results - Shoulder Abduction Test Test Results - Foraminal Compression Test Results - PT-OP-M Strength Start: 09/29/17 15:18 Freq: Status: Active Protocol: Document 09/29/17 15:18 EA (Rec: 10/04/17 09:42 EA [id number]) Cervical Spine Strength Cervical Spine Manual Muscle Testing Flexion (C1-2) 3+ Fair+ Extension 4- Good- Rotation Left 3+ Fair+ Rotation Right 3+ Fair+ Lateral Flexion Left (C3) 3+ Fair+ Lateral Flexion Right (C3) 3+ Fair+ Comments MMT is maybe limited by pain Shoulder Strength Shoulder Manual Muscle Testing Right Horizontal Adduction 4+ Good+ Left Reason Not Measured WFL PT-OP-Q Treatments Start: 09/29/17 15:18 Freq: Status: Active Protocol: Document 11/23/17 10:31 EA (Rec: 11/23/17 11:01 EA [id number]) Therapeutic Exercises Supine Exercises 4 Supine Exercise Name Gentle stretch to all planes Reps/Minutes x 15SH x 2 reps 3 Supine Exercise Name Isometric: all planes Reps/Minutes x 5 SH x 10 reps Comments supine-sitted position 2 Supine Exercise Name Cervical muscles streching Side bilateral Reps/Minutes x 15SH x 2 reps 1 Supine Exercise Name Cervical AROM: flexion, rotation, SB, chin tucking Side bilateral Reps/Minutes 15 reps x 2 Sidelying Exercises 1 Sidelying Exercise Name Rotation; SB Side bilateral Reps/Minutes x 10 repos x 2 sets PT-OP-R Modalities Start: 09/29/17 15:18 Freq: Status: Active Protocol: Document 11/23/17 10:31 EA (Rec: 11/23/17 11:01 EA [id number]) Hot Pack/Cold Pack Treatment Hot Pack Patient Position Supine Treatment Duration (minutes) 10 Patient Tolerance Good PT-OP-T Assessment and Plan Start: 09/29/17 15:18 Freq: Status: Active Protocol: Document 11/23/17 10:31 EA (Rec: 11/23/17 11:01 EA [id number]) Physical Therapy Assessment Assessment Summary Assessment Continue to show ROM improvement with no discomfort during AROM. Overall patient is progressing well. Advised patient for possible HEP discharge next visit. Physical Therapy Plan Next Visit Focus/Plan Next Note Type Treatment Note Next Visit Plan Possible discharge to [facility].
--- NOTE | 2017-11-29 16:03 | PT.OTN ---
Current Diagnoses Cervicalgia (11/29/17) Physical Therapy Treatment Note PT-OP-A Visit Information Start: 09/29/17 15:18 Freq: Status: Active Protocol: Document 11/29/17 13:37 EA (Rec: 11/29/17 13:46 EA [id number]) Out-Patient Physical Therapy Visit Information Visit Information Visit Type Treatment Note Visit Note Discharge to this visit Visit Start Time 13:00 Visit Stop Time 13:40 Total Visit Minutes 40 Visit Number 14 PT-OP-B Current Condition Start: 09/29/17 15:18 Freq: Status: Active Protocol: Document 09/29/17 15:18 EA (Rec: 09/29/17 15:21 EA [id number]) Current Condition History of Current Condition Onset Date 5 months ago Current Complaints left neck pain History of Current Condition Present condition started on the last week of April 2017 and happens after waking up in the morning; states no significant history of neck or shoulder injury. Pain initially tolereated and gradually worsens in few weeks time and that prompted to see her medical doctor; states today neck has improved since the injury. 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 Prior Treatments and Tests None Future Testing and Treatments Planned None at this time Treatment Goals Patient/Caregiver Goals 1.Eliminate pain 2. Improve neck mobility Prior Functional Status Baseline Function- ADL's Independent Current Functional Impairments (Reported) Functional Limitations- ADL's limited with some ADL head neck positioning Functional Limitations- Other Driving, reading, upright position tolerance Personal Factors Other Personal Factors That May Effect Chronicity of the condition Therapy/Recovery PT-OP-C Subjective Start: 09/29/17 15:18 Freq: Status: Active Protocol: Document 11/29/17 13:37 EA (Rec: 11/29/17 13:46 EA [id number]) OP-PT Subjective Patient Comments Patient Comments Patient reports occsional left neck pain but very mild; states able to sleep to left side with no discomfort; overall she feels much improved and would like to be discharged from PT. Patient Questionnaires Neck Disability Index NDI Score 1 Neck Disability Index Impairment 1 to 19% Impaired (Score 1-9) PT-OP-F Manual Assessment Start: 09/29/17 15:18 Freq: Status: Active Protocol: Document 09/29/17 15:17 EA (Rec: 10/04/17 11:13 EA [id number]) Manual Assessments Soft Tissue Assessment Soft Tissue Mobility Assessment tightness ti both traps, deep neck muscles, scallenes, LS, SCM PT-OP-H Neuro Start: 09/29/17 15:18 Freq: Status: Active Protocol: Document 09/29/17 15:17 EA (Rec: 10/04/17 11:13 EA [id number]) Sensation Evaluation Gross Sensation Gross Sensation WNL Deep Tendon Reflex & Clonus Assessment Deep Tendon Reflex Bilateral Brachioradialis Deep Tendon Reflex 2+ Normal Bilateral Tricep Deep Tendon Reflex 2+ Normal Bilateral Bicep Deep Tendon Reflex 2+ Normal PT-OP-J Posture/Palpation/Skin Start: 09/29/17 15:18 Freq: Status: Active Protocol: Document 09/29/17 15:18 EA (Rec: 10/04/17 07:32 EA [id number]) Posture Evaluation Position Standing Evaluation View Anterior Head/C-Spine Posture Forward Head Shoulder Posture (L) Rounded (R) Rounded Arm Posture (L) Internally Rotated (R) Internally Rotated Palpation Assessment Location One Palpation Location Left traps, SCM, Deepcervical neck ms. Palpation Findings Soft Tissue Tightness Tenderness PT-OP-K Range of Motion Start: 09/29/17 15:18 Freq: Status: Active Protocol: Document 11/03/17 14:25 EA (Rec: 11/03/17 15:07 EA [id number]) Cervical Spine Range of Motion Cervical Spine Active Testing Position Sitting Flexion 41 Extension 55 Rotation Left 48 Rotation Right 41 Lateral Flexion Left 41 Lateral Flexion Right 40 PT-OP-L Special Tests Start: 09/29/17 15:18 Freq: Status: Active Protocol: Document 09/29/17 15:18 EA (Rec: 10/04/17 09:42 EA [id number]) Special Tests Cervical Spine Special Tests Other- 1 Test Results + Comments Facets joint Vertebral Artery Test Results - Spurling's Test Test Results - Shoulder Abduction Test Test Results - Foraminal Compression Test Results - PT-OP-M Strength Start: 09/29/17 15:18 Freq: Status: Active Protocol: Document 09/29/17 15:18 EA (Rec: 10/04/17 09:42 EA [id number]) Cervical Spine Strength Cervical Spine Manual Muscle Testing Flexion (C1-2) 3+ Fair+ Extension 4- Good- Rotation Left 3+ Fair+ Rotation Right 3+ Fair+ Lateral Flexion Left (C3) 3+ Fair+ Lateral Flexion Right (C3) 3+ Fair+ Comments MMT is maybe limited by pain Shoulder Strength Shoulder Manual Muscle Testing Right Horizontal Adduction 4+ Good+ Left Reason Not Measured WFL PT-OP-Q Treatments Start: 09/29/17 15:18 Freq: Status: Active Protocol: Document 11/29/17 13:37 EA (Rec: 11/29/17 13:46 EA [id number]) Therapeutic Exercises Supine Exercises 5 Supine Exercise Name Gentle PROM/Stretch to full ROM Comments HEP component 4 Supine Exercise Name Gentle stretch to all planes Reps/Minutes x 15SH x 2 reps Comments HEP component 3 Supine Exercise Name Isometric: all planes Reps/Minutes x 5 SH x 10 reps Comments supine-sitted position 2 Supine Exercise Name Cervical muscles streching Side bilateral Reps/Minutes x 15SH x 2 reps Comments HEP component 1 Supine Exercise Name Cervical AROM: flexion, rotation, SB, chin tucking Side bilateral Reps/Minutes 15 reps x 2 Comments HEP component Sidelying Exercises 1 Sidelying Exercise Name Rotation; SB Side bilateral Reps/Minutes x 10 repos x 2 sets Comments HEP component Sitting Exercises 2 Sitting Exercise Name Shoulder shrug with scapular retraction Reps/Minutes x10 reps x 5SH Comments HEP component 1 Sitting Exercise Name Traps, pecs, LS stretch Comments HEP component Manual Therapy Treatment Manual Techniques 1 Type gentle passive stretch Comments scrdsld-[id number]-passive stretch PT-OP-R Modalities Start: 09/29/17 15:18 Freq: Status: Active Protocol: Document 11/23/17 10:31 EA (Rec: 11/23/17 11:01 EA [id number]) Hot Pack/Cold Pack Treatment Hot Pack Patient Position Supine Treatment Duration (minutes) 10 Patient Tolerance Good PT-OP-T Assessment and Plan Start: 09/29/17 15:18 Freq: Status: Active Protocol: Document 11/29/17 13:37 EA (Rec: 11/29/17 13:46 EA [id number]) Physical Therapy Assessment Assessment Summary Assessment Patient reahed functional goals at this time with very slight tenderness to left neck . Overall patient exhibits improved AP cervical ROM and strength. Patient is discharge today. Physical Therapy Plan Discharge Physical Therapy Discharge Reasons Goals Met Discharge Comments Patient request.
== END 2018-02-06 16:15 ==
LOC: PHYS 13:00
PROVIDERS: Family Provider Family Medicine; PCP Family Medicine; Visit Provider Family Medicine
DX: M54.2 Cervicalgia (principal)
CPT/HCPCS: 97010; 97110; 97140; 97161; 97535

== ENCOUNTER → 2018-01-02 07:46 | Outpatient (CLI) | payer OTHER, SELFPAY ==
[2018-01-02 09:18] LABS: Blood Urea Nitrogen 20 mg/dL (7-17); Calcium 9.5 mg/dL (8.4-10.2); Carbon Dioxide 30 mmol/L (22-32); Chloride 100 mmol/L (98-107); Estimated Glomerular Filt Rate > 60.0 mL/min (>60); Glucose 102 mg/dL (80-110); HEMOLYSIS 18 (0-50); Potassium 4.1 mmol/L (3.4-5.1); Sodium 139 mmol/L (137-145)
[2018-01-02 09:35] LABS: Vitamin D 25 Hydroxy (D3) 33.9 ng/mL (30.0-100.0)
== END ==
PROVIDERS: Family Medicine; PCP Family Medicine; Visit Provider Family Medicine
DX: I10 Essential (primary) hypertension (principal); R79.89 Other specified abnormal findings of blood chemistry; E55.9 Vitamin D deficiency, unspecified
CPT/HCPCS: 36415; 80048; 82306

== ENCOUNTER → 2018-01-21 08:40 | Outpatient (CLI) | payer OTHER, SELFPAY ==
--- NOTE | 2018-01-21 08:41 | DI.MRI.S_ITS ---
PROCEDURE: MR CERVICAL SPINE WO CON INDICATIONS: neck pain with radiculopathy TECHNIQUE: Noncontrast sagittal T1 spin echo and T2 fast spin echo, sagittal STIR, foraminal oblique sagittal T2 fast spin echo, and axial gradient echo or T2 fast spin echo through the cervical spine. COMPARISON: None. FINDINGS: Image quality: Excellent. Alignment and Curvature: There is normal bony alignment. Bone Marrow: Minimal reactive endplate changes noted adjacent to the C5-C6 and C6-C7 discs. Spinal Cord: Visualized spinal cord has normal size and signal. No cerebellar tonsillar herniation. Paraspinous Soft Tissues: No paravertebral masses. Prevertebral soft tissues are normal in thickness. C2-C3: Loss of disc signal. No central stenosis. No neural foraminal narrowing. No neural impingement. C3-C4: Loss of disc signal. Mild, diffuse disc bulge. Moderate-sized central disc protrusion. Central disc protrusion abuts and slightly flattens the anterior margin of the cervical spinal cord causing mild flattening deformity. Moderate to severe narrowing of the central canal secondary to disc disease. Mild left facet hypertrophy. Moderate left neural foraminal narrowing. C4-C5: Loss of disc signal and slight loss of disc height. Mild, diffuse disc bulge and small central disc protrusion. Moderate narrowing of the central canal. Moderate left facet hypertrophy. Moderate left neural foraminal narrowing. No neural impingement. C5-C6: Loss of disc signal and height. Moderate, diffuse disc bulge. Moderate-sized central disc protrusion superimposed upon diffuse disc bulge. Moderate to severe narrowing of the central canal. Mild bilateral facet hypertrophy. Moderate right and mild left uncovertebral joint hypertrophy. Severe right and moderate left neural foraminal narrowing with flattening deformity exiting right C6 nerve root. C6-C7: Loss of disc signal. Minimal, diffuse disc bulge. No central stenosis. No neural foraminal narrowing. No neural impingement. C7-T1: Loss of disc signal. No central stenosis. No neural foraminal narrowing. No neural impingement. IMPRESSION: 1. Multilevel degenerative disc disease. 2. Multilevel facet arthropathy. 3. Moderate to severe C3-C4 and C5-C6 central canal narrowing. Moderate C4-C5 central canal narrowing. 4. Severe right and moderate left C5-C6 neural foraminal narrowing. Moderate left C3 on C4 and C4-C5 neural foraminal narrowing. 5. C3-C4 central disc protrusion abuts and slightly flattens the cervical spinal cord. Please correlate with clinical data. 6. Flattening deformity exiting right C6 nerve root secondary to neural foraminal narrowing. Please correlate with clinical data. Dictated by: Iva Andrews MD, PhD on 01/21/2018 at 21:52 Approved by: Iva Andrews MD, PhD on 01/21/2018 at 21:57
== END ==
PROVIDERS: PCP Family Medicine; Visit Provider Family Medicine
DX: M50.11 Cervical disc disorder with radiculopathy, high cervical region (principal); M47.22 Other spondylosis with radiculopathy, cervical region; M48.02 Spinal stenosis, cervical region
CPT/HCPCS: 72141

== ENCOUNTER 2018-02-28 09:35 | Outpatient (CLI) | payer OTHER, SELFPAY ==
[2018-02-28] VITALS (8 sets, daily range): BP systolic 110–152; BP diastolic 54–94; PULSE 46–69; RESP 14–18; TEMP 36.1; O2SAT 98–100
--- NOTE | 2018-02-28 09:38 | DI.RAD.S_ITS ---
PROCEDURE: PAIN C/T FACET INJ/BLK 1ST L INDICATIONS: SPONDYLOSIS FINDINGS: Fluoroscopic spot filming was performed to verify placement of spinal needles at the left C4-C5 and C5-C6 level(s), as labeled on the films. Appropriate location(s) of the needle tip(s) was confirmed by injection of iodinated contrast. IMPRESSION: Intraprocedural examination within normal limits. Dictated by: Tom Hunt M.D. on 03/01/2018 at 8:59 Approved by: Tom Hunt M.D. on 03/01/2018 at 9:00
[2018-02-28] MEDS: MIDAZOLAM 5 MG/5 ML VIAL IV (10:20)
--- NOTE | 2018-02-28 10:38 | PC.NURSE ---
Pt tolerated procedure well. Able to get off table with minimal assist. Taken to pre procedure room via W/C for continued monitoring with Sruthi KHAN.
--- NOTE | 2018-02-28 10:42 | P.PCN_ITS ---
Procedures Date/Time Date of procedure: 02/28/18 Time of procedure: 10:41 General Procedure description: PREOP DIAGNOSIS 1. FACET ARTHROPATHY 2. AXIAL NECK PAIN POST OP DIAGNOSIS 1. FACET ARTHROPATHY 2. AXIAL NECK PAIN PROCEDURES 1. FLUOROSCOPICALLY GUIDED, CONTRAST-CONTROLLED LEFT C4/5, C5/6 FACET JOINT INJECTIONS WITH CONSCIOUS SEDATION. PHYSICIAN: Junior Lazaro, DO INDICATIONS Speedy is referred by Dr. Chavez for treatment of Axial Neck Pain DESCRIPTION OF PROCEDURE Fluoroscopically guided, contrast-controlled left C4/5, C5/6 facet joint injections with conscious sedation. Following denial of allergy and review of potential side effects and complications, including, but not necessarily limited to, infection, allergic reaction, local tissue breakdown, stroke, temporary or permanent nerve injury and paralysis, the patient indicated that the patient understood and agreed to proceed. An informed consent document was signed by the patient, witnessed by a nurse, and placed in the patient's chart. Additionally, other treatment options including medications, modalities, and physical therapy were reviewed with the patient. After review of previous anaesthesic history and IV conscious sedation the patient was deemed safe to proceed with todays procedure with IV conscious sedation as ASA class II designation. Safety time-out was performed to confirm patient ID, procedure to be performed and site of procedure. IV sedation was accomplished with a combination of 2mg was administered by the RN after DO order , titrated to patient comfort during the course of the procedure while the patient remained responsive to all verbal commands In the prone position, following sterile prep and drape of the cervical spine region, the posterior aspect of the right C4/5, C5/6 facet joints were identified fluoroscopically. The skin was anesthetized via a 25-gauge 1.5-inch needle with 1% lidocaine solution into the corresponding facet joints. At this point, a 25-gauge 2.5-inch spinal needle was atraumatically introduced and advanced under fluoroscopic guidance into the corresponding facet joints. Following negative aspiration, injections of approximately 0.2-cc of Isovue 200 confirmed interarticular placement without vascular uptake. At this point, a total of 1 cc including 0.5 cc or 5 mg of dexamethasone combined with 0.5 cc of 1% lidocaine solution was injected without complication into each of the corresponding facet joints. The patient tolerated the procedure well without signs or symptoms of complications prior to transfer to the recovery area continued monitoring without incident. The patient was then transferred to the recovery area where they were observed for an appropriate period of time after the injection. The patient reported a VAS score of 7 prior to the procedure and a post- procedure VAS of 0. Total Fluoroscopy Time: 20.5 seconds Total Conscious Sedation Time: 24 min POST OP INSTRUCTIONS They were provided a Pain Log to continue to record their response to the target -specific procedure prior to their follow-up visit with their referring physician. Additionally, specific post-injection care instructions and a contact number to our office were provided if concerns arise regarding possible complications associated with the procedure are suspected. Junior Lazaro, Complications: none
[2018-02-28] MEDS: BUPIVACAINE 0.5% (PF) VIAL 2 ML INJ (10:53)
[2018-02-28] MEDS: IOPAMIDOL 15 ML VIAL 3 ML INJ (10:53)
[2018-02-28] MEDS: DEXAMETHASONE 10 MG/ML VIAL 20 MG INJ (10:54)
--- NOTE | 2018-03-01 16:24 | PC.NURSE ---
FOLLOW UP CALL MADE, PT DENIES PAIN AT THIS TIME AND STATES SHE HAS 1/10 PAIN IF SHE TURNS HER HEAD COMPLETELY TO THE RIGHT BUT IS PAIN FREE OTHER THAN THAT. VERBALLY DENIED OTHER QUESTIONS OR CONCERNS. REMINDED HER TO COMPLETE HER GREEN SHEET AND BRING TO FOLLOW UP APPT.
== END 2018-02-28 11:41 | disposition home or self-care (01) ==
PROVIDERS: PCP Family Medicine; Visit Provider Physical Medicine & Rehabilitation
DX: M47.812 Spondylosis without myelopathy or radiculopathy, cervical region (principal); M54.2 Cervicalgia
CPT/HCPCS: 64490; 64491; 99152; J1100; J2250

== ENCOUNTER → 2018-04-18 08:24 | Outpatient (CLI) | payer OTHER, SELFPAY ==
[2018-04-18 09:58] LABS: Cholesterol 261 mg/dL (140-199); HDL Cholesterol 59 mg/dL (40-60); LDL Cholesterol Calculated 170 mg/dL (<100); Triglycerides 159 mg/dL (35-150)
== END ==
PROVIDERS: PCP Family Medicine; Visit Provider Family Medicine
DX: I10 Essential (primary) hypertension (principal)
CPT/HCPCS: 36415; 80061

== ENCOUNTER → 2018-07-12 08:07 | Outpatient (CLI) | payer OTHER, SELFPAY ==
[2018-07-12 09:41] LABS: Cholesterol 194 mg/dL (140-199); HDL Cholesterol 62 mg/dL (40-60); LDL Cholesterol Calculated 102 mg/dL (<100); Triglycerides 148 mg/dL (35-150)
== END ==
PROVIDERS: PCP Family Medicine; Visit Provider Family Medicine
DX: E78.2 Mixed hyperlipidemia (principal)
CPT/HCPCS: 36415; 80061

== ENCOUNTER → 2018-08-23 11:18 | Outpatient (CLI) | payer OTHER, SELFPAY ==
--- NOTE | 2018-08-23 | DI.MG.S_ITS ---
BILATERAL DIGITAL SCREENING MAMMOGRAM 3D/2D WITH CAD: 08/23/2018 CLINICAL: Routine screening. Family history of breast cancer. Comparison is made to exams dated: 06/03/2017 mammogram, 05/07/2016 mammogram, 11/18/2014 mammogram, 05/17/2012 mammogram, and 05/17/2011 mammogram - [facility]. There are scattered fibroglandular elements in both breasts. Current study was also evaluated with a Computer Aided Detection (CAD) system. No significant masses, calcifications, or other findings are seen in either breast. There has been no significant interval change. IMPRESSION: NEGATIVE There is no mammographic evidence of malignancy. A 1 year screening mammogram is recommended. This exam was interpreted at Station ID: [id number]. NOTE: For mammograms, a report in lay terms will be sent to the patient. Approximately 15% of breast malignancies will not be visualized mammographically. In the management of a palpable breast mass, a negative mammogram must not discourage biopsy of a clinically suspicious lesion. Electronically Signed By: Wu bautista/noemy:08/23/2018 17:12:20 letter sent: Normal Exam ACR BI-RADS Category 1: Negative 3341F
== END ==
PROVIDERS: PCP Family Medicine; Visit Provider Family Medicine
DX: Z12.31 Encounter for screening mammogram for malignant neoplasm of breast (principal); Z80.3 Family history of malignant neoplasm of breast
CPT/HCPCS: 77063; 77067

== ENCOUNTER → 2018-09-08 10:03 | Outpatient (CLI) | payer OTHER, SELFPAY ==
[2018-09-10 12:17] LABS: RPR Screen Nonreactive (Nonreactive)
[2018-09-10 20:42] LABS: ANA Screen, IFA Positive (Negative)
[2018-09-11 08:13] LABS: Angiotensin Converting Enzyme 65 U/L (9-67)
[2018-09-11 13:31] LABS: HLA B27 NEGATIVE (Negative)
[2018-09-12 11:21] LABS: Lysozyme (Muramidase) 5.1 mcg/mL (5.0-11.0)
[2018-09-12 11:40] LABS: Mitogen-NIL > 10.00 IU/mL; NIL 0.03 IU/mL; QuantiFERON TB NEGATIVE (Negative); TB1-NIL < 0.01 IU/mL; TB2-NIL < 0.01 IU/mL
== END ==
PROVIDERS: PCP Family Medicine; Visit Provider Ophthalmology
DX: H20.011 Primary iridocyclitis, right eye (principal)
CPT/HCPCS: 36415; 82164; 85549; 86038; 86480; 86592; 86780; 86812

== ENCOUNTER → 2018-09-15 08:25 | Outpatient (CLI) | payer OTHER, SELFPAY ==
[2018-09-15 09:21] LABS: Add Manual Diff / Slide Review NO; Basophils Absolute Auto 0 /uL (0-100); Basophils Percent Auto 0.1 % (0-2); Eosinophils Absolute Auto 0 /uL (0-450); Eosinophils Percent Auto 1.2 % (2-4); Hematocrit 42.1 % (36-46); Hemoglobin 14.4 g/dL (12.0-16.0); Lymphocytes Absolute Auto 1300 /uL (1100-4500); Lymphocytes Percent Auto 32.9 % (25-40); Mean Corpuscular HGB Conc 34.1 % (30-36); Mean Corpuscular Hemoglobin 31.6 PG (26-34); Mean Corpuscular Volume 92.6 fL (80-100); Monocytes Absolute Auto 500 /uL (0-900); Monocytes Percent Auto 11.3 % (3-14); Neutrophils Absolute Auto 2200 /uL (1500-7000); Neutrophils Percent Auto 54.5 % (50-75); Platelet Count 183 X10^3/uL (150-400); Red Blood Cell Count 4.55 X10^6/uL (4.0-5.2); Red Cell Distribution Width 13.1 % (11.6-14.8); White Blood Cell Count 4.1 X10^3/uL (4.5-11.0)
[2018-09-15 09:27] LABS: Alanine Aminotransferase 9 IU/L (9-52); Albumin 4.2 g/dL (3.5-5.0); Albumin Globulin Ratio 1.4 (1.0-2.8); Alkaline Phosphatase 84 U/L (38-126); Aspartate Aminotransferase 24 IU/L (14-36); BUN Creatinine Ratio 18.9 (6-22); Bilirubin Total 0.7 mg/dL (0.2-1.3); Blood Urea Nitrogen 17 mg/dL (7-17); Calcium 9.6 mg/dL (8.4-10.2); Carbon Dioxide 30 mmol/L (22-32); Chloride 101 mmol/L (98-107); Cholesterol 219 mg/dL (140-199); Estimated Glomerular Filt Rate > 60.0 mL/min (>60); Globulin 3.1 g/dL (1.7-4.1); Glucose 96 mg/dL (80-110); HDL Cholesterol 60 mg/dL (40-60); HEMOLYSIS < 15 (0-50); LDL Cholesterol Calculated 126 mg/dL (<100); Potassium 4.3 mmol/L (3.4-5.1); Sodium 138 mmol/L (137-145); Total Protein 7.3 g/dL (6.3-8.2); Triglycerides 167 mg/dL (35-150)
[2018-09-15 09:57] LABS: Thyroid Stimulating Hormone 8.19 uIU/mL (0.47-4.68)
== END ==
PROVIDERS: PCP Family Medicine; Visit Provider Family Medicine
DX: I10 Essential (primary) hypertension (principal); Z00.00 Encounter for general adult medical examination without abnormal findings
CPT/HCPCS: 36415; 80053; 80061; 84443; 85025

== ENCOUNTER → 2018-10-05 09:08 | Outpatient (CLI) | payer OTHER, SELFPAY ==
--- NOTE | 2018-10-05 09:09 | DI.MRI.S_ITS ---
PROCEDURE: MR HEAD/BRAIN WO CON INDICATIONS: Memory impairment TECHNIQUE: Non-contrast axial T1 spin echo, axial T2 fast spin echo, sagittal and axial FLAIR, coronal T2 fast spin echo, axial gradient echo, axial diffusion and ADC through the brain. COMPARISON: None. FINDINGS: Image quality: Excellent. CSF spaces: Ventricles appear symmetric in size and shape. Basal cisterns are patent. No extra-axial fluid collections. Brain: No intracranial bleeds or mass effects. There is cerebral volume loss for age. There are periventricular and deep white matter chronic small vessel ischemic changes. Brainstem appears normal. Diffusion-weighted images show no acute ischemic insults. No chronic ischemic insults. Normal intravascular flow voids are present. Skull and face: Calvarial bone marrow is normal in signal. Orbits are normal. Sinuses: Sinuses and mastoids are clear. IMPRESSION: No evidence of acute ischemia. Diffuse small white matter signal changes, probably represent chronic microvascular ischemic disease, versus statistically less likely demyelination or other infectious, inflammatory, neurodegenerative etiology, technically nonspecific. Dictated by: Charly Delgado M.D. on 10/05/2018 at 10:14 Approved by: Charly Delgado M.D. on 10/05/2018 at 10:16
== END ==
PROVIDERS: PCP Family Medicine; Visit Provider Family Medicine
DX: R41.3 Other amnesia (principal)
CPT/HCPCS: 70551

== ENCOUNTER → 2019-03-29 12:33 | Outpatient (CLI) | payer OTHER, SELFPAY ==
[2019-03-29 13:44] LABS: BUN Creatinine Ratio 31.3 (6-22); Blood Urea Nitrogen 25 mg/dL (7-17); Carbon Dioxide 28 mmol/L (22-32); Chloride 100 mmol/L (98-107); Estimated Glomerular Filt Rate > 60.0 mL/min (>60); Glucose 89 mg/dL (80-110); HEMOLYSIS 20 (0-50); Potassium 4.4 mmol/L (3.4-5.1); Sodium 139 mmol/L (137-145)
[2019-03-29 14:18] LABS: Thyroid Stimulating Hormone 0.99 uIU/mL (0.47-4.68)
== END ==
PROVIDERS: PCP Family Medicine; Referring Provider Family Medicine; Visit Provider Family Medicine
DX: E03.9 Hypothyroidism, unspecified (principal)
CPT/HCPCS: 36415; 80048; 84443

== ENCOUNTER → 2019-09-06 07:58 | Outpatient (CLI) | payer OTHER, SELFPAY ==
[2019-09-06 08:31] LABS: Add Manual Diff / Slide Review NO; Basophils Absolute Auto 0 /uL (0-100); Basophils Percent Auto 0.1 % (0-2); Eosinophils Absolute Auto 100 /uL (0-450); Eosinophils Percent Auto 2.1 % (2-4); Hematocrit 41.2 % (36-46); Lymphocytes Absolute Auto 1100 /uL (1100-4500); Lymphocytes Percent Auto 30.5 % (25-40); Mean Corpuscular Hemoglobin 31.1 PG (26-34); Mean Corpuscular Volume 91.4 fL (80-100); Monocytes Absolute Auto 500 /uL (0-900); Monocytes Percent Auto 12.8 % (3-14); Neutrophils Absolute Auto 2000 /uL (1500-7000); Neutrophils Percent Auto 54.5 % (50-75); Platelet Count 162 X10^3/uL (150-400); Red Blood Cell Count 4.51 X10^6/uL (4.0-5.2); Red Cell Distribution Width 13.7 % (11.6-14.8); White Blood Cell Count 3.7 X10^3/uL (4.5-11.0)
[2019-09-06 09:24] LABS: Alanine Aminotransferase 18 IU/L (<35); Albumin Globulin Ratio 1.7 (1.0-2.8); Alkaline Phosphatase 80 U/L (38-126); Aspartate Aminotransferase 26 IU/L (14-36); BUN Creatinine Ratio 23.5 (6-22); Bilirubin Total 0.7 mg/dL (0.2-1.3); Blood Urea Nitrogen 20 mg/dL (7-17); Calcium 9.6 mg/dL (8.4-10.2); Carbon Dioxide 25 mmol/L (22-32); Chloride 103 mmol/L (98-107); Cholesterol 187 mg/dL (140-199); Estimated Glomerular Filt Rate > 60.0 mL/min (>60); Globulin 2.4 g/dL (1.7-4.1); Glucose 104 mg/dL (80-110); HDL Cholesterol 64 mg/dL (40-60); HEMOLYSIS < 15 (0-50); LDL Cholesterol Calculated 95 mg/dL (<100); Potassium 4.5 mmol/L (3.4-5.1); Sodium 134 mmol/L (137-145); Total Protein 6.4 g/dL (6.3-8.2); Triglycerides 142 mg/dL (35-150)
[2019-09-06 09:53] LABS: Thyroid Stimulating Hormone 0.619 uIU/mL (0.47-4.68)
== END ==
PROVIDERS: PCP Family Medicine; Referring Provider Family Medicine; Visit Provider Family Medicine
DX: E03.9 Hypothyroidism, unspecified (principal)
CPT/HCPCS: 36415; 80053; 80061; 84443; 85025

== ENCOUNTER → 2019-10-10 10:44 | Outpatient (CLI) | payer OTHER, SELFPAY ==
--- NOTE | 2019-10-10 | DI.MG.S_ITS ---
BILATERAL DIGITAL SCREENING MAMMOGRAM 3D/2D WITH CAD: 10/10/2019 CLINICAL: Routine screening. Family history of breast cancer. Comparison is made to exams dated: 08/23/2018 mammogram, 06/03/2017 mammogram, and 05/07/2016 mammogram - [facility]. There are scattered fibroglandular elements in both breasts. Current study was also evaluated with a Computer Aided Detection (CAD) system. No significant masses, calcifications, or other findings are seen in either breast. There has been no significant interval change. IMPRESSION: NEGATIVE There is no mammographic evidence of malignancy. A 1 year screening mammogram is recommended. This exam was interpreted at Station ID: [id number]. NOTE: For mammograms, a report in lay terms will be sent to the patient. Approximately 15% of breast malignancies will not be visualized mammographically. In the management of a palpable breast mass, a negative mammogram must not discourage biopsy of a clinically suspicious lesion. Electronically Signed By: Moira bob/noemy:10/10/2019 11:55:23 letter sent: Normal Exam ACR BI-RADS Category 1: Negative 3341F
== END ==
PROVIDERS: PCP Family Medicine; Referring Provider Family Medicine; Visit Provider Family Medicine
DX: Z12.31 Encounter for screening mammogram for malignant neoplasm of breast (principal); Z80.3 Family history of malignant neoplasm of breast
CPT/HCPCS: 77063; 77067

== ENCOUNTER → 2019-12-06 10:20 | Outpatient (CLI) | payer OTHER, SELFPAY ==
[2019-12-06 12:11] LABS: Add Manual Diff / Slide Review NO; Basophils Absolute Auto 0 /uL (0-100); Basophils Percent Auto 0.1 % (0-2); Eosinophils Absolute Auto 0 /uL (0-450); Eosinophils Percent Auto 0.9 % (2-4); Hemoglobin 14.2 g/dL (12.0-16.0); Lymphocytes Absolute Auto 1000 /uL (1100-4500); Lymphocytes Percent Auto 19.4 % (25-40); Mean Corpuscular HGB Conc 33.7 % (30-36); Mean Corpuscular Hemoglobin 31.2 PG (26-34); Mean Corpuscular Volume 92.5 fL (80-100); Monocytes Absolute Auto 600 /uL (0-900); Monocytes Percent Auto 11.3 % (3-14); Neutrophils Absolute Auto 3400 /uL (1500-7000); Neutrophils Percent Auto 68.3 % (50-75); Platelet Count 178 X10^3/uL (150-400); Red Blood Cell Count 4.54 X10^6/uL (4.0-5.2); Red Cell Distribution Width 13.5 % (11.6-14.8); White Blood Cell Count 4.9 X10^3/uL (4.5-11.0)
[2019-12-06 12:21] LABS: Alanine Aminotransferase 17 IU/L (<35); Albumin 4.1 g/dL (3.5-5.0); Albumin Globulin Ratio 1.4 (1.0-2.8); Alkaline Phosphatase 75 U/L (38-126); Aspartate Aminotransferase 26 IU/L (14-36); BUN Creatinine Ratio 23.7 (6-22); Bilirubin Total 0.6 mg/dL (0.2-1.3); Blood Urea Nitrogen 22 mg/dL (7-17); Calcium 9.7 mg/dL (8.4-10.2); Carbon Dioxide 27 mmol/L (22-32); Chloride 104 mmol/L (98-107); Estimated Glomerular Filt Rate 57.9 mL/min (>60); Globulin 2.9 g/dL (1.7-4.1); Glucose 130 mg/dL (80-110); HEMOLYSIS < 15 (0-50); Potassium 4.5 mmol/L (3.4-5.1); Sodium 138 mmol/L (137-145)
== END ==
PROVIDERS: PCP Family Medicine; Referring Provider Family Medicine; Visit Provider Family Medicine
DX: E03.9 Hypothyroidism, unspecified (principal); E78.2 Mixed hyperlipidemia; I10 Essential (primary) hypertension
CPT/HCPCS: 36415; 80053; 84443; 85025

== ENCOUNTER → 2020-03-05 09:45 | Outpatient (CLI) | payer OTHER, SELFPAY ==
[2020-03-05 11:02] LABS: Alanine Aminotransferase 17 IU/L (<35); Albumin 4.2 g/dL (3.5-5.0); Albumin Globulin Ratio 1.4 (1.0-2.8); Alkaline Phosphatase 110 U/L (38-126); Aspartate Aminotransferase 33 IU/L (14-36); BUN Creatinine Ratio 22.1 (6-22); Bilirubin Total 0.6 mg/dL (0.2-1.3); Blood Urea Nitrogen 23 mg/dL (7-17); Calcium 10.2 mg/dL (8.4-10.2); Carbon Dioxide 31 mmol/L (22-32); Chloride 98 mmol/L (98-107); Cholesterol 208 mg/dL (140-199); Estimated Glomerular Filt Rate 50.9 mL/min (>60); Glucose 86 mg/dL (80-110); HDL Cholesterol 56 mg/dL (40-60); HEMOLYSIS < 15 (0-50); LDL Cholesterol Calculated 115 mg/dL (<100); Potassium 4.6 mmol/L (3.4-5.1); Sodium 132 mmol/L (137-145); Total Protein 7.2 g/dL (6.3-8.2); Triglycerides 184 mg/dL (35-150)
[2020-03-05 12:01] LABS: Creatinine Urine Random 39.4 mg/dL
[2020-03-05 12:07] LABS: Microalbumin Urine Random < 0.6 mg/dL (0-1.6)
== END ==
PROVIDERS: PCP Family Medicine; Referring Provider Family Medicine; Visit Provider Family Medicine
DX: E03.9 Hypothyroidism, unspecified (principal); E78.2 Mixed hyperlipidemia; I10 Essential (primary) hypertension
CPT/HCPCS: 36415; 80053; 80061; 82043; 82570; 84443

== ENCOUNTER → 2020-06-12 08:29 | Outpatient (CLI) | payer OTHER, SELFPAY ==
[2020-06-12 09:05] LABS: BUN Creatinine Ratio 30.2 (6-22); Blood Urea Nitrogen 26 mg/dL (7-17); Calcium 9.6 mg/dL (8.4-10.2); Carbon Dioxide 27 mmol/L (22-32); Chloride 103 mmol/L (98-107); Estimated Glomerular Filt Rate > 60.0 mL/min (>60); Glucose 101 mg/dL (80-110); HEMOLYSIS < 15 (0-50); Potassium 4.4 mmol/L (3.4-5.1); Sodium 137 mmol/L (137-145)
== END ==
PROVIDERS: PCP Family Medicine; Referring Provider Family Medicine; Visit Provider Family Medicine
DX: R79.89 Other specified abnormal findings of blood chemistry (principal)
CPT/HCPCS: 36415; 80048

== ENCOUNTER → 2020-10-10 14:53 | Outpatient (CLI) | payer OTHER, SELFPAY ==
--- NOTE | 2020-10-10 14:54 | DI.MG.S_ITS ---
BILATERAL DIGITAL SCREENING MAMMOGRAM 3D/2D WITH CAD: 10/10/2020 CLINICAL: Routine screening. Family history of breast cancer. Comparison is made to exams dated: 10/10/2019 mammogram, 08/23/2018 mammogram, and 06/03/2017 mammogram - [facility]. There are scattered fibroglandular elements in both breasts. Current study was also evaluated with a Computer Aided Detection (CAD) system. No significant masses, calcifications, or other findings are seen in either breast. There has been no significant interval change. IMPRESSION: NEGATIVE There is no mammographic evidence of malignancy. A 1 year screening mammogram is recommended. This exam was interpreted at Station ID: [id number]. NOTE: For mammograms, a report in lay terms will be sent to the patient. Approximately 15% of breast malignancies will not be visualized mammographically. In the management of a palpable breast mass, a negative mammogram must not discourage biopsy of a clinically suspicious lesion. Electronically Signed By: Leobardo Dillon M.D., jr/noemy:10/10/2020 15:44:21 letter sent: Normal Exam ACR BI-RADS Category 1: Negative 3341F
== END ==
PROVIDERS: PCP Family Medicine; Referring Provider Family Medicine; Visit Provider Family Medicine
DX: Z12.31 Encounter for screening mammogram for malignant neoplasm of breast (principal); Z80.3 Family history of malignant neoplasm of breast
CPT/HCPCS: 77063; 77067

== ENCOUNTER → 2021-03-23 08:28 | Outpatient (CLI) | payer OTHER, SELFPAY ==
[2021-03-23 09:36] LABS: Add Manual Diff / Slide Review NO; Basophils Absolute Auto 0 /uL (0-100); Eosinophils Absolute Auto 100 /uL (0-450); Eosinophils Percent Auto 2.6 % (2-4); Hematocrit 42.4 % (36-46); Hemoglobin 14.4 g/dL (12.0-16.0); Lymphocytes Absolute Auto 1200 /uL (1100-4500); Lymphocytes Percent Auto 26.3 % (25-40); Mean Corpuscular HGB Conc 33.9 % (30-36); Mean Corpuscular Volume 91.2 fL (80-100); Monocytes Absolute Auto 400 /uL (0-900); Monocytes Percent Auto 9.1 % (3-14); Neutrophils Absolute Auto 2700 /uL (1500-7000); Platelet Count 147 X10^3/uL (150-400); Red Blood Cell Count 4.65 X10^6/uL (4.0-5.2); Red Cell Distribution Width 13.9 % (11.6-14.8); White Blood Cell Count 4.4 X10^3/uL (4.5-11.0)
[2021-03-23 10:17] LABS: Alanine Aminotransferase 16 IU/L (<35); Albumin 4.1 g/dL (3.5-5.0); Albumin Globulin Ratio 1.5 (1.0-2.8); Alkaline Phosphatase 74 U/L (38-126); Aspartate Aminotransferase 25 IU/L (14-36); BUN Creatinine Ratio 21.9 (6-22); Bilirubin Total 0.8 mg/dL (0.2-1.3); Blood Urea Nitrogen 21 mg/dL (7-17); Calcium 9.5 mg/dL (8.4-10.2); Carbon Dioxide 29 mmol/L (22-32); Chloride 104 mmol/L (98-107); Cholesterol 202 mg/dL (140-199); Estimated Glomerular Filt Rate 55.6 mL/min (>60); Globulin 2.7 g/dL (1.7-4.1); Glucose 99 mg/dL (80-110); HDL Cholesterol 69 mg/dL (40-60); HEMOLYSIS < 15 (0-50); LDL Cholesterol Calculated 111 mg/dL (<100); Potassium 4.5 mmol/L (3.4-5.1); Sodium 136 mmol/L (137-145); Total Protein 6.8 g/dL (6.3-8.2); Triglycerides 112 mg/dL (35-150)
[2021-03-23 10:44] LABS: TSH w/ Reflex to FT4 2.42 uIU/mL (0.47-4.68)
[2021-03-23 10:46] LABS: Creatinine Urine Random 94.9 mg/dL
[2021-03-23 10:51] LABS: Microalbumi Creatinin Ratio Ur 9.4 ug/mg CR (<30); Microalbumin Urine Random 0.9 mg/dL (0-1.6)
== END ==
PROVIDERS: PCP Family Medicine; Referring Provider Family Medicine; Visit Provider Family Medicine
DX: E03.9 Hypothyroidism, unspecified (principal); E78.2 Mixed hyperlipidemia; I10 Essential (primary) hypertension
CPT/HCPCS: 36415; 80053; 80061; 82043; 82570; 84443; 85025

== ENCOUNTER → 2021-05-05 11:04 | Outpatient (CLI) | payer OTHER, SELFPAY ==
--- NOTE | 2021-05-05 11:05 | DI.RAD.S_ITS ---
PROCEDURE: XR CHEST 2V INDICATIONS: Cough, wheezing TECHNIQUE: 2 views of the chest were acquired. COMPARISON: None. FINDINGS: Surgical changes and devices: None. Lungs and pleura: Lungs are clear. No pleural effusions or pneumothorax. Mediastinum: Mediastinal contours are normal. Heart size is normal. Bones and chest wall: No suspicious bony abnormalities. Soft tissues appear unremarkable. IMPRESSION: No acute cardiopulmonary process demonstrated radiographically. Dictated by: Leobardo Dillon M.D. on 05/05/2021 at 12:19 Approved by: Leobardo Dillon M.D. on 05/05/2021 at 12:21
== END ==
PROVIDERS: PCP Family Medicine; Referring Provider Family Medicine; Visit Provider Family Medicine
DX: R05.9 Cough, unspecified (principal); R06.2 Wheezing
CPT/HCPCS: 71046

== ENCOUNTER → 2021-06-17 07:56 | Outpatient (CLI) | payer OTHER, SELFPAY ==
--- NOTE | 2021-06-17 07:57 | DI.ECHO.S_ITS ---
[place] [facility] +---------+ : : [address] : : : : [id number] : : : : Phone: [phone]+ Echocardiogram Report + + :Name: BECKA VASQUEZ Study Date: 06/17/2021 Height: 59 in : :[facility] ReadingLocation: Weight: 163 lb : : Gender: Female BSA: 1.7 m2 : :: 1940 Age: 81 yrs BP: 164/80 mmHg: :Reason For Study: MURMUR, NEW HYPERTENSION : :Ordering Physician: CLARENCE, : :KAVEH Performed By: Yudy Carter : :Referring: KAVEH LIMA : + + Interpretation Summary The left ventricle is normal in size. There is mild concentric left ventricular hypertrophy. Left ventricular systolic function appears normal without focal wall motion abnormalities. The ejection fraction is estimated to be 60-65%. Diastolic parameters suggest probable normal left ventricular diastolic function and normal filling pressures. The right ventricle is normal in size and function. The right ventricular systolic pressure is estimated to be at least 27 mmHg based on an estimated right atrial pressure of 3 mm Hg. The left atrial size is normal. Right atrial size is normal. There is mild mitral regurgitation. There is moderate mitral annular calcification. The aortic valve is moderately calcified. There is mild to moderate aortic regurgitation. There is no other significant valvular heart disease. The aortic root is normal size. Procedure: A two-dimensional transthoracic echocardiogram with color flow and Doppler was performed. The study quality was technically adequate. Comparison is made with the echocardiogram of 11/18/2014. The patient was in sinus bradycardia with heart rates between 44-62 bpm during the exam. Left Ventricle: The left ventricle is normal in size. There is mild concentric left ventricular hypertrophy. Left ventricular systolic function appears normal without focal wall motion abnormalities. The ejection fraction is estimated to be 60-65%. Diastolic parameters suggest probable normal left ventricular diastolic function and normal filling pressures. Right Ventricle: The right ventricle is normal in size and function. Atria: The left atrial size is normal. Right atrial size is normal. There is no Doppler evidence for an interatrial shunt. Mitral Valve: There is moderate mitral annular calcification. There is mild mitral regurgitation. Aortic Valve: The aortic valve is moderately calcified. The aortic valve is not well visualized. There is mild aortic valve sclerosis. There is no aortic valve stenosis. There is mild to moderate aortic regurgitation. Tricuspid Valve: The tricuspid valve is normal in structure and function. There is mild tricuspid regurgitation. The right ventricular systolic pressure is estimated to be at least 27 mmHg based on an estimated right atrial pressure of 3 mm Hg. Pulmonic Valve: The pulmonic valve is not well seen, but is grossly normal. There is mild pulmonic regurgitation. There is no other significant valvular heart disease. Great Vessels: The aortic root is normal size. The dimensions of the ascending aorta are normal. The IVC is of normal diameter and collapses greater than 50% with a sniff. This suggests a low right atrial pressure of 3 mm Hg. Pericardium/ Pleura There is no pericardial effusion. There is no pleural effusion. MMode/2D Measurements & Calculations LVIDd: 4.0 cm LVOT diam: 2.0 cm LVIDs: 2.8 cm Ao root diam: 3.3 cm FS: 31.4 % asc Aorta Diam: 3.5 cm IVSd: 1.1 cm Ao Arch Diam (Prox Trans): 2.9 cm LVPWd: 1.0 cm LV barrera. diameter/BSA (cm/m^2): 2.4 LV sys. diameter/BSA (cm/m^2): 1.6 LA A2 area: 18.4 cm2 RA long axis: 4.8 cm LA A4 area: 13.7 cm2 RA area: 16.5 cm2 LA length (vol): 4.6 cm RA vol: 48.7 ml LA vol: 46.8 ml RA : 28.8 ml/m2 LA vol index: 27.7 ml/m2 IVC diam: 1.2 cm RVD1 (basal): 3.3 cm RVD2 (mid): 2.4 cm TAPSE: 1.8 cm Doppler Measurements & Calculations Ao V2 max: 197.4 cm/sec LVOT Max Sebastian: 115.0 cm/sec Ao V2 mean: 129.4 cm/sec LV V1 max P.3 mmHg Ao max P.6 mmHg LV V1 VTI: 27.3 cm Ao mean P.8 mmHg SOLO(I,D): 1.8 cm2 Ao V2 VTI: 46.4 cm SOLO(V,D): 1.8 cm2 sev ratio: 0.59 SOLO indexed to BSA (cm^2/m^2): 1.1 AI P1/2t: 939.5 msec AI dec slope: 123.7 cm/sec2 MV E max sebastian: 83.5 cm/sec TR max sebastian: 243.6 cm/sec MV A max sebastian: 90.2 cm/sec TR max P.7 mmHg MV E/A: 0.93 PA V2 max: 89.9 cm/sec Med Peak E' Sebastian: 4.8 cm/sec PA V2 mean: 61.4 cm/sec E/E' med: 17.4 PA mean P.7 mmHg Lat Peak E' Sebastian: 10.0 cm/sec PA pr(Accel): 31.0 mmHg E/E' lat: 8.3 E/e' average: 12.9 MV dec time: 0.28 sec SV(LVOT): 83.8 ml Reading Physician:04:25 PM
== END ==
PROVIDERS: PCP Family Medicine; Referring Provider Family Medicine; Visit Provider Family Medicine
DX: I10 Essential (primary) hypertension (principal); E03.9 Hypothyroidism, unspecified; E78.2 Mixed hyperlipidemia; R01.1 Cardiac murmur, unspecified; I08.3 Combined rheumatic disorders of mitral, aortic and tricuspid valves
CPT/HCPCS: 93306

== ENCOUNTER → 2021-10-13 13:12 | Outpatient (CLI) | payer OTHER, SELFPAY ==
[2021-10-13 13:56] LABS: Add Manual Diff / Slide Review NO; Basophils Absolute Auto 0 /uL (0-100); Basophils Percent Auto 0.2 % (0-2); Eosinophils Absolute Auto 100 /uL (0-450); Eosinophils Percent Auto 1.4 % (2-4); Hemoglobin 13.6 g/dL (12.0-16.0); Lymphocytes Absolute Auto 1200 /uL (1100-4500); Lymphocytes Percent Auto 21.3 % (25-40); Mean Corpuscular Hemoglobin 31.3 PG (26-34); Mean Corpuscular Volume 92.1 fL (80-100); Monocytes Absolute Auto 500 /uL (0-900); Monocytes Percent Auto 9.8 % (3-14); Neutrophils Absolute Auto 3700 /uL (1500-7000); Neutrophils Percent Auto 67.3 % (50-75); Platelet Count 160 X10^3/uL (150-400); Red Blood Cell Count 4.34 X10^6/uL (4.0-5.2); Red Cell Distribution Width 13.2 % (11.6-14.8); White Blood Cell Count 5.5 X10^3/uL (4.5-11.0)
[2021-10-13 14:17] LABS: Alanine Aminotransferase 16 IU/L (<35); Albumin 4.2 g/dL (3.5-5.0); Albumin Globulin Ratio 1.4 (1.0-2.8); Alkaline Phosphatase 98 U/L (38-126); Aspartate Aminotransferase 37 IU/L (14-36); BUN Creatinine Ratio 22.4 (6-22); Bilirubin Total 0.7 mg/dL (0.2-1.3); Blood Urea Nitrogen 22 mg/dL (7-17); Calcium 9.6 mg/dL (8.4-10.2); Carbon Dioxide 31 mmol/L (22-32); Chloride 97 mmol/L (98-107); Erythrocyte Sedimentation Rate 14 MM/HR (0-20); Estimated Glomerular Filt Rate 57 mL/min (>60); Glucose 96 mg/dL (80-110); HEMOLYSIS < 15 (0-50); Potassium 4.4 mmol/L (3.4-5.1); Sodium 134 mmol/L (137-145); Total Protein 7.2 g/dL (6.3-8.2)
[2021-10-13 14:20] LABS: High Sensitivity CRP - Cardiac 0.4 mg/L (1.0-3.0)
== END ==
PROVIDERS: PCP Family Medicine; Referring Provider Ophthalmology; Visit Provider Ophthalmology
DX: H53.123 Transient visual loss, bilateral (principal); E03.8 Other specified hypothyroidism
CPT/HCPCS: 36415; 80053; 85025; 85651; 86140

== ENCOUNTER → 2021-10-15 16:30 | Outpatient (CLI) | payer OTHER, SELFPAY ==
--- NOTE | 2021-10-15 16:31 | DI.MRI.S_ITS ---
PROCEDURE: MR STROKE Pre- and post-contrast brain MRI, non-contrast brain MR angiogram, pre- and postcontrast neck MR angiogram INDICATIONS: Transient visual loss, bilateral TECHNIQUE: Brain: Noncontrast axial T1 spin echo, axial T2 fast spin echo, sagittal and axial FLAIR, coronal T2 fast spin echo, axial gradient echo, axial diffusion and ADC through the brain. After the administration of contrast, axial 3D VIBE of the cranial vasculature and brain. Brain MRA: Non-contrast 3-D time of flight MR angiogram, with multiple ihibdyp-iljnshofb-ygrqywqtzz (MIP) reformats performed. Neck MRA: Axial and sagittal TruFISP through the neck. Coronal dynamic MR angiogram during administration of contrast in the arterial and venous phases, with 3-dimenstional cgebnpq-zoejqcime-fqahfslbdd (MIP) reformats constructed from subtraction images. COMPARISON: None. FINDINGS: Image quality: Excellent. BRAIN: CSF spaces: Ventricles are normal in size and shape. Basal cisterns are patent. No extra-axial fluid collections. Brain: No intracranial bleeds or mass effects. Fuentes-white matter interface is normal. Diffusion weighted images show no acute infarct. Atrophy and multifocal white matter chronic ischemic change.. Brainstem appears normal. Normal intravascular flow voids are present. No abnormal intracranial enhancement. Skull and face: Calvarial marrow signal is normal. Orbits appear normal. Sinuses: Sinuses and mastoids are clear. BRAIN MR ANGIOGRAM: Anterior circulation: Intracranial internal carotid arteries are normal in size and enhancement. The flow within the paired anterior cerebral arteries is normal and symmetric. The flow within the middle cerebral arteries is normal and symmetric. The anterior communicating artery is seen. No stenoses, occlusions, or aneurysms. Posterior circulation: The visualized portions of the vertebral arteries demonstrate normal caliber, and join to form a normal appearing basilar artery. The flow within the posterior cerebral arteries is normal and symmetric. No stenoses, occlusions, or aneurysms. NECK MR ANGIOGRAM: Carotids: Focal atherosclerotic stenosis in the proximal right ICA is approximately 50 percent utilizing NASCET criteria. Left proximal ICA unremarkable. Otherwise great vessels demonstrate a conventional anatomy as they arise from the aortic arch. The origins of the common carotid arteries appear patent. The calibers and courses of both common carotid arteries are normal. Posterior circulation: The origins of the vertebral arteries are not well demonstrated. More superior portions of both vertebral arteries demonstrate normal course and caliber, and join to form a normal appearing basilar artery. Miscellaneous: Subclavian arteries appear patent. Pre-contrast images through the neck show no soft tissue abnormalities. IMPRESSION: 1. Focal atherosclerotic stenosis of proximal right ICA is approximately 50 percent utilizing NASCET criteria. Consider follow-up CT angiogram correlation. 2. Unremarkable CT angiogram of the brain. 3. Moderate atrophy and multifocal white matter chronic ischemic change Approved by: John Mix M.D. on 10/15/2021 at 17:52
== END ==
PROVIDERS: PCP Family Medicine; Referring Provider Ophthalmology; Visit Provider Ophthalmology
DX: H53.123 Transient visual loss, bilateral (principal); I65.21 Occlusion and stenosis of right carotid artery; E03.8 Other specified hypothyroidism
CPT/HCPCS: 70548; 70553

== ENCOUNTER → 2021-11-13 12:22 | Outpatient (CLI) | payer OTHER, SELFPAY ==
--- NOTE | 2021-11-13 | DI.CT.S_ITS ---
PROCEDURE: CT ANGIO NECK INDICATIONS: Occlusion and stenosis of right carotid artery TECHNIQUE: After the administration of intravenous contrast, 1.5 mm axial sections acquired from the aortic arch to the [place] of [place]. Maximum intensity projection (MIP) reformats were then performed. COMPARISON: [facility], MR, MR STROKE, 10/15/2021, 16:39. FINDINGS: Image quality: This examination is limited by involuntary motion artifact. Carotid system: The great vessels demonstrate a conventional anatomy as they arise from the aortic arch. The origins of the common carotid arteries appear patent. The common carotid arteries demonstrate normal calibers and courses. There is focal calcification and irregularity seen involving the right carotid bifurcation region and the right proximal internal carotid artery. There is 70-80% stenosis seen, proximal 1.3 cm beyond the right carotid bifurcation. No significant stenosis can be seen involving the left proximal internal carotid artery. The more distal internal carotid arteries demonstrate normal course and caliber. Posterior circulation: The origins of the vertebral arteries appear patent. The more superior portions of the vertebral arteries demonstrate normal course and caliber. They join to form a normal appearing basilar artery. Soft tissues: Visualized neck soft tissues demonstrate no suspicious abnormalities. Thyroid gland is not definitely seen. Bones: No suspicious bony lesions. Visualized cervical spine appears normally aligned. Age-appropriate bony degenerative changes are seen. IMPRESSION: 70-80% narrowing seen involving the right proximal internal carotid artery. Any quantitative stenosis measurements were performed using the NASCET criteria. Dictated by: Tom Hunt M.D. on 11/13/2021 at 12:22 Approved by: Tom Hunt M.D. on 11/13/2021 at 12:25
== END ==
PROVIDERS: PCP Family Medicine; Referring Provider Nurse Practitioner; Visit Provider Ophthalmology
DX: I65.21 Occlusion and stenosis of right carotid artery (principal)
CPT/HCPCS: 70498; Q9967

== ENCOUNTER 2022-10-22 09:45 | Outpatient (RCR) | payer OTHER, SELFPAY ==
--- NOTE | 2022-08-31 11:00 | PT.OIE ---
Current Diagnoses Polyosteoarthritis, unspecified (08/31/22) Spondylosis without myelopathy or radiculopathy, cervical region (08/31/22) Cervicalgia (08/31/22) Unsteadiness on feet (08/31/22) Other abnormalities of gait and mobility (08/31/22) History of falling (08/31/22) Past Medical History (Last Updated 11/30/21 @ 11:13 by Tom Boss MD) Carotid artery stenosis Chicken pox (~1947) Goiter (~1954) Hearing loss (~1999) Measles (~1950) Osteoarthritis (~1999) Poor balance Shoulder pain (~1999) Past Surgical History (Last Reviewed 03/05/20 @ 09:39 by Tom Boss MD) Anesthesia Cataract (~2010) History of vaginal delivery (~1968) Status post dilation and curettage Visit Care Team Role Provider Type Tom Boss MD Attending Provider Physician Family Provider Primary Care Provider Referring Provider Specialty: Family Practice Address: [address] [place] [address], [facility] Email: [email or web address] Physical Therapy Initial Evaluation PT-OP-A Visit Information Start: 08/31/22 17:23 Freq: Status: Active Protocol: Document 08/31/22 10:15 DCW (Rec: 08/31/22 17:31 DC [id number]) Out-Patient Physical Therapy Visit Information Visit Information Visit Type Initial Evaluation Visit Start Time 10:15 Visit Stop Time 11:00 Total Visit Minutes 45 Visit Number 1 Number of FIELD SECRETARY Visits 0 Evaluation Information Evaluation Date 08/31/22 PT-OP-B Current Condition Start: 08/31/22 17:23 Freq: Status: Active Protocol: Document 08/31/22 10:15 DCW (Rec: 08/31/22 17:31 DC [id number]) Current Condition History of Current Condition Onset Date Four month history Current Complaints Falls, poor balance, fear of falling History of Current Condition Pt is an 82 year old female with complaints of poor balance and an increased fear of falling since suffering a fall four months ago. Reports that after her fall, she had a few months of home health PT, and felt like she noticed some improvement, but still does not feel too comfortable out walking, especially if she is by herself. Uses a SPC outside, but no assistive device in the house. Treatment Goals Patient/Caregiver Goals I just want better stability. PT-OP-C Subjective Start: 08/31/22 17:23 Freq: Status: Active Protocol: Document 08/31/22 10:15 DCW (Rec: 08/31/22 17:31 DCW [id number]) OP-PT Subjective Patient Comments Patient Comments I'd like to go out by myself walking, but I'm terrified of falling. Patient Questionnaires ABC- Activity Specific Balance Confidence Scale ABC Score 55.94% ABC Functional Impairment 40 to <60% Impaired (Score 41- 60) PT-OP-D Balance Start: 08/31/22 17:23 Freq: Status: Active Protocol: Document 08/31/22 10:15 DCW (Rec: 08/31/22 17:55 DCW [id number]) Balance Tests Lowe Balance Test Lowe Balance Test Score 48/56 Lowe Balance Assessment Evaluation Sitting to Standing Ability Independent w/out Hands Unsupported Stance Safely- 2 minutes Sitting Unsupported, Feet on Floor Safely- 2 minutes Standing to Sitting Ability Safely, Minimal Hand Use Transfer Ability Safely, Minimal Hand Use Unsupported Stance- Eyes Closed Safely, 10 seconds Unsupported Stance- Eyes Open Independent, 1 minute Reaching Forward Standing Safely, 5 inches Pick- Up Object From Floor Independent/Safe Look Behind Shoulder - Standing Shifts Weight Unilateral Turning 360 Degrees Turns slowly, but safely Unsupported Stance, Alternating Feet on (I)- 8 Steps in 20 secs Stair Unsupported Tandem Stance Holds Tandem- 30 seconds Unilateral Leg Stance Lifts Leg/Unable to Hold Total Score Lowe Total Score (out of 56 points) 48 Lowe Impairment Rating 1 to 19% Impaired (Score 45-55 ) PT-OP-E Functional Tests Start: 08/31/22 17:23 Freq: Status: Active Protocol: Document 08/31/22 10:15 DCW (Rec: 08/31/22 17:55 DCW [id number]) Functional Tests 30 Second Sit to Stand Test Score 11 repetitions Comments Agerage norm for pt's age group is 12 repetitions Dynamic Gait Index (DGI) Score 16/24 DGI Impairment Rating 20 to <40% Impaired (Score 15- 19) Timed Up and Go (TUG) Score 10.43 Comments Three-trial Average (11.93, 9. 56, 9.80) TUG Impairment Rating 1 to <20% Impaired (Score 11) PT-OP-M Strength Start: 08/31/22 17:23 Freq: Status: Active Protocol: Document 08/31/22 10:15 DCW (Rec: 08/31/22 17:55 DCW [id number]) Hip Strength Hip Manual Muscle Testing Right Flexion (L2) 4 Good Abduction 4 Good Adduction 4+ Good+ Left Flexion (L2) 4 Good Abduction 4 Good Adduction 4+ Good+ Knee Strength Knee Manual Muscle Testing Right Flexion (S2) 4+ Good+ Extension (L3) 4+ Good+ Left Flexion (S2) 4+ Good+ Extension (L3) 4+ Good+ Ankle/Foot Strength Ankle and Foot Manual Muscle Testing Right Dorsiflexion (L4) 4 Good Left Dorsiflexion (L4) 4 Good PT-OP-T Assessment and Plan Start: 08/31/22 17:23 Freq: Status: Active Protocol: Document 08/31/22 10:15 DCW (Rec: 09/01/22 15:47 DCW [id number]) Physical Therapy Assessment Rehab Potential Rehabilitation Potential Excellent Evaluation Complexity Number of Personal Factors/Comorbidities 1-2 Number of Body Systems Impaired 1-2 Clinical Presentation at Evaluation Stable Goals Two Impairment Pt scores a 16/24 on the DGI, indicating an increased risk of falls Long-Term Goal (LTG) Pt to increase DGI score by at least 4 points to 20/24 to exhibit a decrease in her falls risk. LTG Duration 11/01/22 One Impairment Pt does not have an appropriate home exercise program Short Term Goal (STG) Pt to be independent and compliant with an appropriate HEP STG Duration 10/01/22 Assessment Summary Assessment Pt presents with signs and symptoms consistent with referring diagnosis. Pt displays a an increased risk of falls, per DGI (16/24), although Lowe (48/56) and TUG (10.43) both suggest she is not in a falls risk category. Pt's biggest deficit appears to be more focused on her fear of falling, which she admits is quite significant. Pt performed 11 repetitions during the 30 second sit to stand test, which is only one less than the age-related normative value. Pt will likely do very well with a brief course of PT focusing on general LE strengthening and balance training in order to improve pt confidence and decrease falls risk. Will work toward implementing a safe but effective independent home exercise program for balance training. Physical Therapy Plan Frequency and Duration Frequency of Treatment 2x/Week Plan of Care Start Date 08/31/22 Plan of Care End Date 11/01/22 Therapeutic Interventions Therapeutic Interventions Balance Training,Coordination Training,Gait Training,Home Exercise Program,Manual Therapy,Neuromuscular Re- education,Patient/Caregiver Education,Self-Care/Home Management,Therapeutic Activities,Therapeutic Exercises Next Visit Focus/Plan Next Note Type Treatment Note Next Visit Plan Balance training, LE strengthening
--- NOTE | 2022-08-31 11:00 | PT.OPPOC ---
Physical, Occupational & Speech Therapy At [facility] Current Diagnoses Polyosteoarthritis, unspecified (08/31/22) Spondylosis without myelopathy or radiculopathy, cervical region (08/31/22) Cervicalgia (08/31/22) Unsteadiness on feet (08/31/22) Other abnormalities of gait and mobility (08/31/22) History of falling (08/31/22) Visit Care Team Role Provider Type Tom Boss MD Attending Provider Physician Family Provider Primary Care Provider Referring Provider Specialty: Family Practice Address: [address] [place] [address] Email: [email or web address] Plan Of Care PT-OP-T Assessment and Plan Start: 08/31/22 17:23 Freq: Status: Active Protocol: Document 08/31/22 10:15 DCW (Rec: 09/01/22 15:47 DCW [id number]) Physical Therapy Assessment Rehab Potential Rehabilitation Potential Excellent Evaluation Complexity Number of Personal Factors/Comorbidities 1-2 Number of Body Systems Impaired 1-2 Clinical Presentation at Evaluation Stable Goals Two Impairment Pt scores a 16/24 on the DGI, indicating an increased risk of falls Reports Developer Goal (LTG) Pt to increase DGI score by at least 4 points to 20/24 to exhibit a decrease in her falls risk. LTG Duration 11/01/22 One Impairment Pt does not have an appropriate home exercise program Short Term Goal (STG) Pt to be independent and compliant with an appropriate HEP STG Duration 10/01/22 Assessment Summary Assessment Pt presents with signs and symptoms consistent with referring diagnosis. Pt displays a an increased risk of falls, per DGI (16/24), although Lowe (48/56) and TUG (10.43) both suggest she is not in a falls risk category. Pt's biggest deficit appears to be more focused on her fear of falling, which she admits is quite significant. Pt performed 11 repetitions during the 30 second sit to stand test, which is only one less than the age-related normative value. Pt will likely do very well with a brief course of PT focusing on general LE strengthening and balance training in order to improve pt confidence and decrease falls risk. Will work toward implementing a safe but effective independent home exercise program for balance training. Physical Therapy Plan Frequency and Duration Frequency of Treatment 2x/Week Plan of Care Start Date 08/31/22 Plan of Care End Date 11/01/22 Therapeutic Interventions Therapeutic Interventions Balance Training,Coordination Training,Gait Training,Home Exercise Program,Manual Therapy,Neuromuscular Re- education,Patient/Caregiver Education,Self-Care/Home Management,Therapeutic Activities,Therapeutic Exercises Next Visit Focus/Plan Next Note Type Treatment Note Next Visit Plan Balance training, LE strengthening Plan of Care Dates Plan of Care Start Date 08/31/22 Plan of Care End Date 11/01/22 Electronically Signed by: Winston Gutierrez, PT 09/01/22 0705 If you are in agreement with this Plan of Care, please return a signed and dated copy. I have reviewed this Plan of Care and certify that the skilled therapy services above are required to meet the patient?s needs. Physician Signature Date Printed Name and Credentials Clinical Instructor Signature Printed Name and Credentials
--- NOTE | 2022-09-02 12:42 | PT.OTN ---
Current Diagnoses Polyosteoarthritis, unspecified (09/02/22) Spondylosis without myelopathy or radiculopathy, cervical region (09/02/22) Cervicalgia (09/02/22) Unsteadiness on feet (09/02/22) Other abnormalities of gait and mobility (09/02/22) History of falling (09/02/22) Physical Therapy Treatment Note PT-OP-A Visit Information Start: 08/31/22 17:23 Freq: Status: Active Protocol: Document 09/02/22 12:00 DCW (Rec: 09/02/22 12:42 DCW [id number]) Out-Patient Physical Therapy Visit Information Visit Information Visit Type Treatment Note Visit Start Time 12:00 Visit Stop Time 12:45 Total Visit Minutes 45 Visit Number 2 Number of WIRELESS NETWORK ENGINEER Visits 0 Evaluation Information Evaluation Date 08/31/22 PT-OP-B Current Condition Start: 08/31/22 17:23 Freq: Status: Active Protocol: Document 08/31/22 10:15 DCW (Rec: 08/31/22 17:31 DCW [id number]) Current Condition History of Current Condition Onset Date Four month history Current Complaints Falls, poor balance, fear of falling History of Current Condition Pt is an 82 year old female with complaints of poor balance and an increased fear of falling since suffering a fall four months ago. Reports that after her fall, she had a few months of home health PT, and felt like she noticed some improvement, but still does not feel too comfortable out walking, especially if she is by herself. Uses a SPC outside, but no assistive device in the house. Treatment Goals Patient/Caregiver Goals I just want better stability. PT-OP-C Subjective Start: 08/31/22 17:23 Freq: Status: Active Protocol: Document 09/02/22 12:00 DCW (Rec: 09/02/22 12:42 DCW [id number]) OP-PT Subjective Patient Comments Patient Comments After my first visit, I started practicing bending over and picking stuff up. PT-OP-D Balance Start: 08/31/22 17:23 Freq: Status: Active Protocol: Document 08/31/22 10:15 DCW (Rec: 08/31/22 17:55 DCW [id number]) Balance Tests Lowe Balance Test Lowe Balance Test Score 48/56 Lowe Balance Assessment Evaluation Sitting to Standing Ability Independent w/out Hands Unsupported Stance Safely- 2 minutes Sitting Unsupported, Feet on Floor Safely- 2 minutes Standing to Sitting Ability Safely, Minimal Hand Use Transfer Ability Safely, Minimal Hand Use Unsupported Stance- Eyes Closed Safely, 10 seconds Unsupported Stance- Eyes Open Independent, 1 minute Reaching Forward Standing Safely, 5 inches Pick- Up Object From Floor Independent/Safe Look Behind Shoulder - Standing Shifts Weight Unilateral Turning 360 Degrees Turns slowly, but safely Unsupported Stance, Alternating Feet on (I)- 8 Steps in 20 secs Stair Unsupported Tandem Stance Holds Tandem- 30 seconds Unilateral Leg Stance Lifts Leg/Unable to Hold Total Score Lowe Total Score (out of 56 points) 48 Lowe Impairment Rating 1 to 19% Impaired (Score 45-55 ) PT-OP-E Functional Tests Start: 08/31/22 17:23 Freq: Status: Active Protocol: Document 08/31/22 10:15 DCW (Rec: 08/31/22 17:55 DCW [id number]) Functional Tests 30 Second Sit to Stand Test Score 11 repetitions Comments Agerage norm for pt's age group is 12 repetitions Dynamic Gait Index (DGI) Score 16/24 DGI Impairment Rating 20 to <40% Impaired (Score 15- 19) Timed Up and Go (TUG) Score 10.43 Comments Three-trial Average (11.93, 9. 56, 9.80) TUG Impairment Rating 1 to <20% Impaired (Score 11) PT-OP-M Strength Start: 08/31/22 17:23 Freq: Status: Active Protocol: Document 08/31/22 10:15 DCW (Rec: 08/31/22 17:55 DCW [id number]) Hip Strength Hip Manual Muscle Testing Right Flexion (L2) 4 Good Abduction 4 Good Adduction 4+ Good+ Left Flexion (L2) 4 Good Abduction 4 Good Adduction 4+ Good+ Knee Strength Knee Manual Muscle Testing Right Flexion (S2) 4+ Good+ Extension (L3) 4+ Good+ Left Flexion (S2) 4+ Good+ Extension (L3) 4+ Good+ Ankle/Foot Strength Ankle and Foot Manual Muscle Testing Right Dorsiflexion (L4) 4 Good Left Dorsiflexion (L4) 4 Good PT-OP-Q Treatments Start: 08/31/22 17:23 Freq: Status: Active Protocol: Document 09/02/22 12:00 DCW (Rec: 09/02/22 12:42 DCW [id number]) Cardio Equipment Recumbent Elliptical (Biodex) Duration (Minutes) 5 Resistance 3 Seat Position 6 Gym Equipment Shuttle Balance Red Details WBOS, Staggered Stance Therapeutic Exercises Standing Exercises Hip Extension Standing Exercise Name Hip Extension Side bilateral Resistance Red loop Other Exercises Resisted Ambulation Other Exercise Name Resisted side-stepping Side bilateral Resistance Red loop Neuro Re-Education Treatment Balance Activities Step-ups Details Step-ups Equipment 6 step, // bars Tandem Details Tandem Ambulation Equipment // bars Comments Fwd/Bkwd Foam Details Ambulation over foam stepping stones Equipment // bars Hurdles Details Hurdles Equipment // bars Comments [place], Side-stepping PT-OP-T Assessment and Plan Start: 08/31/22 17:23 Freq: Status: Active Protocol: Document 09/02/22 12:00 DCW (Rec: 09/02/22 12:42 DCW [id number]) Physical Therapy Assessment Goals Two Impairment Pt scores a 16/24 on the DGI, indicating an increased risk of falls Booth Operator Goal (LTG) Pt to increase DGI score by at least 4 points to 20/24 to exhibit a decrease in her falls risk. LTG Duration 11/01/22 One Impairment Pt does not have an appropriate home exercise program Short Term Goal (STG) Pt to be independent and compliant with an appropriate HEP STG Duration 10/01/22 Assessment Summary Assessment Pt still doing very well, acclimates to balance challenges quickly, does rely frequently on UEs even when not losing balance, needs continued instruction to help decrease fear of falling and improve confidence. Physical Therapy Plan Frequency and Duration Frequency of Treatment 2x/Week Plan of Care Start Date 08/31/22 Plan of Care End Date 11/01/22 Therapeutic Interventions Therapeutic Interventions Balance Training,Coordination Training,Gait Training,Home Exercise Program,Manual Therapy,Neuromuscular Re- education,Patient/Caregiver Education,Self-Care/Home Management,Therapeutic Activities,Therapeutic Exercises Next Visit Focus/Plan Next Note Type Treatment Note Next Visit Plan Balance training, LE strengthening
--- NOTE | 2022-09-06 16:33 | PT.OTN ---
Current Diagnoses Polyosteoarthritis, unspecified (09/06/22) Spondylosis without myelopathy or radiculopathy, cervical region (09/06/22) Cervicalgia (09/06/22) Unsteadiness on feet (09/06/22) Other abnormalities of gait and mobility (09/06/22) History of falling (09/06/22) Physical Therapy Treatment Note PT-OP-A Visit Information Start: 08/31/22 17:23 Freq: Status: Active Protocol: Document 09/06/22 15:45 DCW (Rec: 09/06/22 16:33 DCW [id number]) Out-Patient Physical Therapy Visit Information Visit Information Visit Type Treatment Note Visit Start Time 15:45 Visit Stop Time 16:30 Total Visit Minutes 45 Visit Number 3 Number of HAY STACKER Visits 0 Evaluation Information Evaluation Date 08/31/22 PT-OP-B Current Condition Start: 08/31/22 17:23 Freq: Status: Active Protocol: Document 08/31/22 10:15 DCW (Rec: 08/31/22 17:31 DCW [id number]) Current Condition History of Current Condition Onset Date Four month history Current Complaints Falls, poor balance, fear of falling History of Current Condition Pt is an 82 year old female with complaints of poor balance and an increased fear of falling since suffering a fall four months ago. Reports that after her fall, she had a few months of home health PT, and felt like she noticed some improvement, but still does not feel too comfortable out walking, especially if she is by herself. Uses a SPC outside, but no assistive device in the house. Treatment Goals Patient/Caregiver Goals I just want better stability. PT-OP-C Subjective Start: 08/31/22 17:23 Freq: Status: Active Protocol: Document 09/06/22 15:45 DCW (Rec: 09/06/22 16:33 DCW [id number]) OP-PT Subjective Patient Comments Patient Comments Pt notes she had a root canal earlier today, but is currently not having any pain. PT-OP-D Balance Start: 08/31/22 17:23 Freq: Status: Active Protocol: Document 08/31/22 10:15 DCW (Rec: 08/31/22 17:55 DCW [id number]) Balance Tests Lowe Balance Test Lowe Balance Test Score 48/56 Lowe Balance Assessment Evaluation Sitting to Standing Ability Independent w/out Hands Unsupported Stance Safely- 2 minutes Sitting Unsupported, Feet on Floor Safely- 2 minutes Standing to Sitting Ability Safely, Minimal Hand Use Transfer Ability Safely, Minimal Hand Use Unsupported Stance- Eyes Closed Safely, 10 seconds Unsupported Stance- Eyes Open Independent, 1 minute Reaching Forward Standing Safely, 5 inches Pick- Up Object From Floor Independent/Safe Look Behind Shoulder - Standing Shifts Weight Unilateral Turning 360 Degrees Turns slowly, but safely Unsupported Stance, Alternating Feet on (I)- 8 Steps in 20 secs Stair Unsupported Tandem Stance Holds Tandem- 30 seconds Unilateral Leg Stance Lifts Leg/Unable to Hold Total Score Lowe Total Score (out of 56 points) 48 Lowe Impairment Rating 1 to 19% Impaired (Score 45-55 ) PT-OP-E Functional Tests Start: 08/31/22 17:23 Freq: Status: Active Protocol: Document 08/31/22 10:15 DCW (Rec: 08/31/22 17:55 DCW [id number]) Functional Tests 30 Second Sit to Stand Test Score 11 repetitions Comments Agerage norm for pt's age group is 12 repetitions Dynamic Gait Index (DGI) Score 16/24 DGI Impairment Rating 20 to <40% Impaired (Score 15- 19) Timed Up and Go (TUG) Score 10.43 Comments Three-trial Average (11.93, 9. 56, 9.80) TUG Impairment Rating 1 to <20% Impaired (Score 11) PT-OP-M Strength Start: 08/31/22 17:23 Freq: Status: Active Protocol: Document 08/31/22 10:15 DCW (Rec: 08/31/22 17:55 DCW [id number]) Hip Strength Hip Manual Muscle Testing Right Flexion (L2) 4 Good Abduction 4 Good Adduction 4+ Good+ Left Flexion (L2) 4 Good Abduction 4 Good Adduction 4+ Good+ Knee Strength Knee Manual Muscle Testing Right Flexion (S2) 4+ Good+ Extension (L3) 4+ Good+ Left Flexion (S2) 4+ Good+ Extension (L3) 4+ Good+ Ankle/Foot Strength Ankle and Foot Manual Muscle Testing Right Dorsiflexion (L4) 4 Good Left Dorsiflexion (L4) 4 Good PT-OP-Q Treatments Start: 08/31/22 17:23 Freq: Status: Active Protocol: Document 09/06/22 15:45 DCW (Rec: 09/06/22 16:33 DCW [id number]) Cardio Equipment Recumbent Elliptical (Biodex) Duration (Minutes) 5 Resistance 3 Seat Position 6 Gym Equipment Shuttle Balance Red Details WBOS, Staggered Stance Therapeutic Exercises Standing Exercises Hip Extension Standing Exercise Name Hip Extension Side bilateral Resistance Red loop Other Exercises Resisted Ambulation Other Exercise Name Resisted side-stepping Side bilateral Resistance Red loop Neuro Re-Education Treatment Balance Activities Step-ups Details Step-ups Equipment 6 step, // bars Tandem Details Tandem Ambulation Equipment // bars Comments Fwd/Bkwd Hurdles Details Hurdles/FOam Equipment // bars Comments Forward, Tandem, Side-stepping PT-OP-T Assessment and Plan Start: 08/31/22 17:23 Freq: Status: Active Protocol: Document 09/06/22 15:45 DCW (Rec: 09/06/22 16:33 DCW [id number]) Physical Therapy Assessment Goals Two Impairment Pt scores a 16/24 on the DGI, indicating an increased risk of falls Locomotive Engineer Diesel Goal (LTG) Pt to increase DGI score by at least 4 points to 20/24 to exhibit a decrease in her falls risk. LTG Duration 11/01/22 One Impairment Pt does not have an appropriate home exercise program Short Term Goal (STG) Pt to be independent and compliant with an appropriate HEP STG Duration 10/01/22 Assessment Summary Assessment Pt tolerated treatment very well today, plan to increase balance challenges and add more LE strengthening. Physical Therapy Plan Frequency and Duration Frequency of Treatment 2x/Week Plan of Care Start Date 08/31/22 Plan of Care End Date 11/01/22 Therapeutic Interventions Therapeutic Interventions Balance Training,Coordination Training,Gait Training,Home Exercise Program,Manual Therapy,Neuromuscular Re- education,Patient/Caregiver Education,Self-Care/Home Management,Therapeutic Activities,Therapeutic Exercises Next Visit Focus/Plan Next Note Type Treatment Note Next Visit Plan Balance training, LE strengthening
--- NOTE | 2022-10-06 11:44 | PT.OTN ---
Current Diagnoses Polyosteoarthritis, unspecified (10/06/22) Spondylosis without myelopathy or radiculopathy, cervical region (10/06/22) Cervicalgia (10/06/22) Unsteadiness on feet (10/06/22) Other abnormalities of gait and mobility (10/06/22) History of falling (10/06/22) Physical Therapy Treatment Note PT-OP-A Visit Information Start: 08/31/22 17:23 Freq: Status: Active Protocol: Document 10/06/22 11:00 DCW (Rec: 10/06/22 11:44 DCW [id number]) Out-Patient Physical Therapy Visit Information Visit Information Visit Type Treatment Note Visit Start Time 11:00 Visit Stop Time 11:45 Total Visit Minutes 45 Visit Number 4 Number of DRESSMAKER GARMENT FITTER Visits 0 Evaluation Information Evaluation Date 08/31/22 PT-OP-B Current Condition Start: 08/31/22 17:23 Freq: Status: Active Protocol: Document 08/31/22 10:15 DCW (Rec: 08/31/22 17:31 DCW [id number]) Current Condition History of Current Condition Onset Date Four month history Current Complaints Falls, poor balance, fear of falling History of Current Condition Pt is an 82 year old female with complaints of poor balance and an increased fear of falling since suffering a fall four months ago. Reports that after her fall, she had a few months of home health PT, and felt like she noticed some improvement, but still does not feel too comfortable out walking, especially if she is by herself. Uses a SPC outside, but no assistive device in the house. Treatment Goals Patient/Caregiver Goals I just want better stability. PT-OP-C Subjective Start: 08/31/22 17:23 Freq: Status: Active Protocol: Document 10/06/22 11:00 DCW (Rec: 10/06/22 11:44 DCW [id number]) OP-PT Subjective Patient Comments Patient Comments I think about the same. Definitely not any worse. PT-OP-D Balance Start: 08/31/22 17:23 Freq: Status: Active Protocol: Document 08/31/22 10:15 DCW (Rec: 08/31/22 17:55 DCW [id number]) Balance Tests Lowe Balance Test Lowe Balance Test Score 48/56 Lowe Balance Assessment Evaluation Sitting to Standing Ability Independent w/out Hands Unsupported Stance Safely- 2 minutes Sitting Unsupported, Feet on Floor Safely- 2 minutes Standing to Sitting Ability Safely, Minimal Hand Use Transfer Ability Safely, Minimal Hand Use Unsupported Stance- Eyes Closed Safely, 10 seconds Unsupported Stance- Eyes Open Independent, 1 minute Reaching Forward Standing Safely, 5 inches Pick- Up Object From Floor Independent/Safe Look Behind Shoulder - Standing Shifts Weight Unilateral Turning 360 Degrees Turns slowly, but safely Unsupported Stance, Alternating Feet on (I)- 8 Steps in 20 secs Stair Unsupported Tandem Stance Holds Tandem- 30 seconds Unilateral Leg Stance Lifts Leg/Unable to Hold Total Score Lowe Total Score (out of 56 points) 48 Lowe Impairment Rating 1 to 19% Impaired (Score 45-55 ) PT-OP-E Functional Tests Start: 08/31/22 17:23 Freq: Status: Active Protocol: Document 08/31/22 10:15 DCW (Rec: 08/31/22 17:55 DCW [id number]) Functional Tests 30 Second Sit to Stand Test Score 11 repetitions Comments Agerage norm for pt's age group is 12 repetitions Dynamic Gait Index (DGI) Score 16/24 DGI Impairment Rating 20 to <40% Impaired (Score 15- 19) Timed Up and Go (TUG) Score 10.43 Comments Three-trial Average (11.93, 9. 56, 9.80) TUG Impairment Rating 1 to <20% Impaired (Score 11) PT-OP-M Strength Start: 08/31/22 17:23 Freq: Status: Active Protocol: Document 08/31/22 10:15 DCW (Rec: 08/31/22 17:55 DCW [id number]) Hip Strength Hip Manual Muscle Testing Right Flexion (L2) 4 Good Abduction 4 Good Adduction 4+ Good+ Left Flexion (L2) 4 Good Abduction 4 Good Adduction 4+ Good+ Knee Strength Knee Manual Muscle Testing Right Flexion (S2) 4+ Good+ Extension (L3) 4+ Good+ Left Flexion (S2) 4+ Good+ Extension (L3) 4+ Good+ Ankle/Foot Strength Ankle and Foot Manual Muscle Testing Right Dorsiflexion (L4) 4 Good Left Dorsiflexion (L4) 4 Good PT-OP-Q Treatments Start: 08/31/22 17:23 Freq: Status: Active Protocol: Document 10/06/22 11:00 DCW (Rec: 10/06/22 11:44 DCW [id number]) Cardio Equipment Recumbent Elliptical (Biodex) Duration (Minutes) 5 Resistance 4 Seat Position 6 Gym Equipment Shuttle Balance Red Details WBOS (EO/EC), Staggered Stance Therapeutic Exercises Other Exercises Resisted Ambulation Other Exercise Name Resisted side-stepping Side bilateral Resistance Green loop Neuro Re-Education Treatment Balance Activities 3-steps, bow Details 3-steps, bow, and head turns Hallway ambulation Details Head turns, Retro walking Comments Head turns /c metronome 90 bpm Tandem Details Tandem Ambulation Equipment // bars Hurdles Details Hurdles/Foam Equipment // bars Comments Forward, Tandem PT-OP-T Assessment and Plan Start: 08/31/22 17:23 Freq: Status: Active Protocol: Document 10/06/22 11:00 DCW (Rec: 10/06/22 11:44 DCW [id number]) Physical Therapy Assessment Goals Two Impairment Pt scores a 16/24 on the DGI, indicating an increased risk of falls Park Worker Supervisor Goal (LTG) Pt to increase DGI score by at least 4 points to 20/24 to exhibit a decrease in her falls risk. LTG Duration 11/01/22 One Impairment Pt does not have an appropriate home exercise program Short Term Goal (STG) Pt to be independent and compliant with an appropriate HEP STG Duration 10/01/22 Assessment Summary Assessment Pt notes fatigue following today's session, but was able to fully participate in all activities without any requests for rest breaks. DOing well with balance challenges. Physical Therapy Plan Frequency and Duration Frequency of Treatment 2x/Week Plan of Care Start Date 08/31/22 Plan of Care End Date 11/01/22 Therapeutic Interventions Therapeutic Interventions Balance Training,Coordination Training,Gait Training,Home Exercise Program,Manual Therapy,Neuromuscular Re- education,Patient/Caregiver Education,Self-Care/Home Management,Therapeutic Activities,Therapeutic Exercises Next Visit Focus/Plan Next Note Type Treatment Note Next Visit Plan Balance training, LE strengthening
--- NOTE | 2022-10-08 12:15 | PT.OTN ---
Current Diagnoses Polyosteoarthritis, unspecified (10/08/22) Spondylosis without myelopathy or radiculopathy, cervical region (10/08/22) Cervicalgia (10/08/22) Unsteadiness on feet (10/08/22) Other abnormalities of gait and mobility (10/08/22) History of falling (10/08/22) Physical Therapy Treatment Note PT-OP-A Visit Information Start: 08/31/22 17:23 Freq: Status: Active Protocol: Document 10/08/22 11:30 DCW (Rec: 10/08/22 12:15 DCW [id number]) Out-Patient Physical Therapy Visit Information Visit Information Visit Type Treatment Note Visit Start Time 11:30 Visit Stop Time 12:15 Total Visit Minutes 45 Visit Number 5 Number of SOLAR SALES ADVISOR Visits 0 Evaluation Information Evaluation Date 08/31/22 PT-OP-B Current Condition Start: 08/31/22 17:23 Freq: Status: Active Protocol: Document 08/31/22 10:15 DCW (Rec: 08/31/22 17:31 DCW [id number]) Current Condition History of Current Condition Onset Date Four month history Current Complaints Falls, poor balance, fear of falling History of Current Condition Pt is an 82 year old female with complaints of poor balance and an increased fear of falling since suffering a fall four months ago. Reports that after her fall, she had a few months of home health PT, and felt like she noticed some improvement, but still does not feel too comfortable out walking, especially if she is by herself. Uses a SPC outside, but no assistive device in the house. Treatment Goals Patient/Caregiver Goals I just want better stability. PT-OP-C Subjective Start: 08/31/22 17:23 Freq: Status: Active Protocol: Document 10/08/22 11:30 DCW (Rec: 10/08/22 12:15 DCW [id number]) OP-PT Subjective Patient Comments Patient Comments Pt reports she feels good today. PT-OP-D Balance Start: 08/31/22 17:23 Freq: Status: Active Protocol: Document 08/31/22 10:15 DCW (Rec: 08/31/22 17:55 DCW [id number]) Balance Tests Lowe Balance Test Lowe Balance Test Score 48/56 Lowe Balance Assessment Evaluation Sitting to Standing Ability Independent w/out Hands Unsupported Stance Safely- 2 minutes Sitting Unsupported, Feet on Floor Safely- 2 minutes Standing to Sitting Ability Safely, Minimal Hand Use Transfer Ability Safely, Minimal Hand Use Unsupported Stance- Eyes Closed Safely, 10 seconds Unsupported Stance- Eyes Open Independent, 1 minute Reaching Forward Standing Safely, 5 inches Pick- Up Object From Floor Independent/Safe Look Behind Shoulder - Standing Shifts Weight Unilateral Turning 360 Degrees Turns slowly, but safely Unsupported Stance, Alternating Feet on (I)- 8 Steps in 20 secs Stair Unsupported Tandem Stance Holds Tandem- 30 seconds Unilateral Leg Stance Lifts Leg/Unable to Hold Total Score Lowe Total Score (out of 56 points) 48 Lowe Impairment Rating 1 to 19% Impaired (Score 45-55 ) PT-OP-E Functional Tests Start: 08/31/22 17:23 Freq: Status: Active Protocol: Document 08/31/22 10:15 DCW (Rec: 08/31/22 17:55 DCW [id number]) Functional Tests 30 Second Sit to Stand Test Score 11 repetitions Comments Agerage norm for pt's age group is 12 repetitions Dynamic Gait Index (DGI) Score 16/24 DGI Impairment Rating 20 to <40% Impaired (Score 15- 19) Timed Up and Go (TUG) Score 10.43 Comments Three-trial Average (11.93, 9. 56, 9.80) TUG Impairment Rating 1 to <20% Impaired (Score 11) PT-OP-M Strength Start: 08/31/22 17:23 Freq: Status: Active Protocol: Document 08/31/22 10:15 DCW (Rec: 08/31/22 17:55 DCW [id number]) Hip Strength Hip Manual Muscle Testing Right Flexion (L2) 4 Good Abduction 4 Good Adduction 4+ Good+ Left Flexion (L2) 4 Good Abduction 4 Good Adduction 4+ Good+ Knee Strength Knee Manual Muscle Testing Right Flexion (S2) 4+ Good+ Extension (L3) 4+ Good+ Left Flexion (S2) 4+ Good+ Extension (L3) 4+ Good+ Ankle/Foot Strength Ankle and Foot Manual Muscle Testing Right Dorsiflexion (L4) 4 Good Left Dorsiflexion (L4) 4 Good PT-OP-Q Treatments Start: 08/31/22 17:23 Freq: Status: Active Protocol: Document 10/08/22 11:30 DCW (Rec: 10/08/22 12:15 DCW [id number]) Cardio Equipment Recumbent Elliptical (Biodex) Duration (Minutes) 5 Resistance 4 Seat Position 6 Gym Equipment Shuttle Balance Red Details WBOS (EO/EC), Staggered Stance Neuro Re-Education Treatment Balance Activities 3-steps, bow Details 3-steps, bow, and head turns Hallway ambulation Details Head turns, Retro walking Comments Head turns /c metronome 90 bpm Tandem Details Tandem Ambulation Hurdles Details Hurdles Comments Forward, Side-stepping PT-OP-T Assessment and Plan Start: 08/31/22 17:23 Freq: Status: Active Protocol: Document 10/08/22 11:30 DCW (Rec: 10/08/22 12:15 DCW [id number]) Physical Therapy Assessment Assessment Summary Assessment Significantly less fatigue today. Focused today on performing activities outside of // bars in effort to have pt use UEs less for support, pt did not increased difficulty due to this. Physical Therapy Plan Frequency and Duration Frequency of Treatment 2x/Week Plan of Care Start Date 08/31/22 Plan of Care End Date 11/01/22 Therapeutic Interventions Therapeutic Interventions Balance Training,Coordination Training,Gait Training,Home Exercise Program,Manual Therapy,Neuromuscular Re- education,Patient/Caregiver Education,Self-Care/Home Management,Therapeutic Activities,Therapeutic Exercises Next Visit Focus/Plan Next Note Type Treatment Note Next Visit Plan Balance training, LE strengthening
--- NOTE | 2022-10-12 12:28 | PT.OTN ---
Current Diagnoses Polyosteoarthritis, unspecified (10/12/22) Spondylosis without myelopathy or radiculopathy, cervical region (10/12/22) Cervicalgia (10/12/22) Unsteadiness on feet (10/12/22) Other abnormalities of gait and mobility (10/12/22) History of falling (10/12/22) Physical Therapy Treatment Note PT-OP-A Visit Information Start: 08/31/22 17:23 Freq: Status: Active Protocol: Document 10/12/22 11:45 DCW (Rec: 10/12/22 12:28 DCW [id number]) Out-Patient Physical Therapy Visit Information Visit Information Visit Type Treatment Note Visit Start Time 11:45 Visit Stop Time 12:30 Total Visit Minutes 45 Visit Number 6 Number of ACADEMIC AFFAIRS ASSISTANT Visits 0 Evaluation Information Evaluation Date 08/31/22 PT-OP-B Current Condition Start: 08/31/22 17:23 Freq: Status: Active Protocol: Document 08/31/22 10:15 DCW (Rec: 08/31/22 17:31 DCW [id number]) Current Condition History of Current Condition Onset Date Four month history Current Complaints Falls, poor balance, fear of falling History of Current Condition Pt is an 82 year old female with complaints of poor balance and an increased fear of falling since suffering a fall four months ago. Reports that after her fall, she had a few months of home health PT, and felt like she noticed some improvement, but still does not feel too comfortable out walking, especially if she is by herself. Uses a SPC outside, but no assistive device in the house. Treatment Goals Patient/Caregiver Goals I just want better stability. PT-OP-C Subjective Start: 08/31/22 17:23 Freq: Status: Active Protocol: Document 10/12/22 11:45 DCW (Rec: 10/12/22 12:28 DCW [id number]) OP-PT Subjective Patient Comments Patient Comments Pt admits she is not where I want to be yet, although does note there has been some improvement PT-OP-D Balance Start: 08/31/22 17:23 Freq: Status: Active Protocol: Document 08/31/22 10:15 DCW (Rec: 08/31/22 17:55 DCW [id number]) Balance Tests Lowe Balance Test Lowe Balance Test Score 48/56 Lowe Balance Assessment Evaluation Sitting to Standing Ability Independent w/out Hands Unsupported Stance Safely- 2 minutes Sitting Unsupported, Feet on Floor Safely- 2 minutes Standing to Sitting Ability Safely, Minimal Hand Use Transfer Ability Safely, Minimal Hand Use Unsupported Stance- Eyes Closed Safely, 10 seconds Unsupported Stance- Eyes Open Independent, 1 minute Reaching Forward Standing Safely, 5 inches Pick- Up Object From Floor Independent/Safe Look Behind Shoulder - Standing Shifts Weight Unilateral Turning 360 Degrees Turns slowly, but safely Unsupported Stance, Alternating Feet on (I)- 8 Steps in 20 secs Stair Unsupported Tandem Stance Holds Tandem- 30 seconds Unilateral Leg Stance Lifts Leg/Unable to Hold Total Score Lowe Total Score (out of 56 points) 48 Lowe Impairment Rating 1 to 19% Impaired (Score 45-55 ) PT-OP-E Functional Tests Start: 08/31/22 17:23 Freq: Status: Active Protocol: Document 08/31/22 10:15 DCW (Rec: 08/31/22 17:55 DC [id number]) Functional Tests 30 Second Sit to Stand Test Score 11 repetitions Comments Agerage norm for pt's age group is 12 repetitions Dynamic Gait Index (DGI) Score 16/24 DGI Impairment Rating 20 to <40% Impaired (Score 15- 19) Timed Up and Go (TUG) Score 10.43 Comments Three-trial Average (11.93, 9. 56, 9.80) TUG Impairment Rating 1 to <20% Impaired (Score 11) PT-OP-M Strength Start: 08/31/22 17:23 Freq: Status: Active Protocol: Document 08/31/22 10:15 DCW (Rec: 08/31/22 17:55 DC [id number]) Hip Strength Hip Manual Muscle Testing Right Flexion (L2) 4 Good Abduction 4 Good Adduction 4+ Good+ Left Flexion (L2) 4 Good Abduction 4 Good Adduction 4+ Good+ Knee Strength Knee Manual Muscle Testing Right Flexion (S2) 4+ Good+ Extension (L3) 4+ Good+ Left Flexion (S2) 4+ Good+ Extension (L3) 4+ Good+ Ankle/Foot Strength Ankle and Foot Manual Muscle Testing Right Dorsiflexion (L4) 4 Good Left Dorsiflexion (L4) 4 Good PT-OP-Q Treatments Start: 08/31/22 17:23 Freq: Status: Active Protocol: Document 10/12/22 11:45 DCW (Rec: 10/12/22 12:28 DCW [id number]) Cardio Equipment Recumbent Elliptical (Biodex) Duration (Minutes) 5 Resistance 5 Seat Position 6 Gym Equipment Shuttle Recovery Unilateral Squats Resistance 37# Bilateral Squats Resistance 62# (one new) Shuttle Balance Red Details WBOS (EO/EC), Staggered Stance Therapeutic Exercises Other Exercises Resisted Ambulation Other Exercise Name Resisted side-stepping Side bilateral Resistance Green loop Neuro Re-Education Treatment Balance Activities Hallway ambulation Details Head turns Comments Head turns /c metronome 90-> 100 bpm Tandem Details Tandem Ambulation Hurdles Details Hurdles Comments Forward PT-OP-T Assessment and Plan Start: 08/31/22 17:23 Freq: Status: Active Protocol: Document 10/12/22 11:45 DCW (Rec: 10/12/22 12:28 DCW [id number]) Physical Therapy Assessment Goals Two Impairment Pt scores a 16/24 on the DGI, indicating an increased risk of falls Football Pad Repairer Goal (LTG) Pt to increase DGI score by at least 4 points to 20/24 to exhibit a decrease in her falls risk. LTG Duration 11/01/22 One Impairment Pt does not have an appropriate home exercise program Short Term Goal (STG) Pt to be independent and compliant with an appropriate HEP STG Duration 10/01/22 Assessment Summary Assessment Pt continues to show progress with balance abilities when not in // bars and overly relying on UEs for support. Did much better on hurdles today. Addition of leg press for continues LE strengthening . Physical Therapy Plan Frequency and Duration Frequency of Treatment 2x/Week Plan of Care Start Date 08/31/22 Plan of Care End Date 11/01/22 Therapeutic Interventions Therapeutic Interventions Balance Training,Coordination Training,Gait Training,Home Exercise Program,Manual Therapy,Neuromuscular Re- education,Patient/Caregiver Education,Self-Care/Home Management,Therapeutic Activities,Therapeutic Exercises Next Visit Focus/Plan Next Note Type Treatment Note Next Visit Plan Balance training, LE strengthening
--- NOTE | 2022-10-15 11:20 | PT.OTN ---
Current Diagnoses Polyosteoarthritis, unspecified (10/15/22) Spondylosis without myelopathy or radiculopathy, cervical region (10/15/22) Cervicalgia (10/15/22) Unsteadiness on feet (10/15/22) Other abnormalities of gait and mobility (10/15/22) History of falling (10/15/22) Physical Therapy Treatment Note PT-OP-A Visit Information Start: 08/31/22 17:23 Freq: Status: Active Protocol: Document 10/15/22 10:25 NBM (Rec: 10/15/22 11:20 NBM [id number]) Out-Patient Physical Therapy Visit Information Visit Information Visit Type Treatment Note Visit Start Time 10:30 Visit Stop Time 11:10 Total Visit Minutes 40 Visit Number 7 Number of C SOFTWARE DEVELOPER Visits 1 PT-OP-B Current Condition Start: 08/31/22 17:23 Freq: Status: Active Protocol: Document 08/31/22 10:15 DCW (Rec: 08/31/22 17:31 DCW [id number]) Current Condition History of Current Condition Onset Date Four month history Current Complaints Falls, poor balance, fear of falling History of Current Condition Pt is an 82 year old female with complaints of poor balance and an increased fear of falling since suffering a fall four months ago. Reports that after her fall, she had a few months of home health PT, and felt like she noticed some improvement, but still does not feel too comfortable out walking, especially if she is by herself. Uses a SPC outside, but no assistive device in the house. Treatment Goals Patient/Caregiver Goals I just want better stability. PT-OP-C Subjective Start: 08/31/22 17:23 Freq: Status: Active Protocol: Document 10/15/22 10:25 NBM (Rec: 10/15/22 11:20 NBM [id number]) OP-PT Subjective Patient Comments Patient Comments Speedy reports she is doing well and has had no falls since back in April when she was making her bed and fell backwards. I'm very careful. She uses her Hurrycane when she gets up in the night, when she leaves the house and first thing in the morning until I get my walking legs underneath me. PT-OP-D Balance Start: 08/31/22 17:23 Freq: Status: Active Protocol: Document 08/31/22 10:15 DCW (Rec: 08/31/22 17:55 [facility] [id number]) Balance Tests Lowe Balance Test Lowe Balance Test Score 48/56 Lowe Balance Assessment Evaluation Sitting to Standing Ability Independent w/out Hands Unsupported Stance Safely- 2 minutes Sitting Unsupported, Feet on Floor Safely- 2 minutes Standing to Sitting Ability Safely, Minimal Hand Use Transfer Ability Safely, Minimal Hand Use Unsupported Stance- Eyes Closed Safely, 10 seconds Unsupported Stance- Eyes Open Independent, 1 minute Reaching Forward Standing Safely, 5 inches Pick- Up Object From Floor Independent/Safe Look Behind Shoulder - Standing Shifts Weight Unilateral Turning 360 Degrees Turns slowly, but safely Unsupported Stance, Alternating Feet on (I)- 8 Steps in 20 secs Stair Unsupported Tandem Stance Holds Tandem- 30 seconds Unilateral Leg Stance Lifts Leg/Unable to Hold Total Score Lowe Total Score (out of 56 points) 48 Lowe Impairment Rating 1 to 19% Impaired (Score 45-55 ) PT-OP-E Functional Tests Start: 08/31/22 17:23 Freq: Status: Active Protocol: Document 08/31/22 10:15 DCW (Rec: 08/31/22 17:55 [facility] [id number]) Functional Tests 30 Second Sit to Stand Test Score 11 repetitions Comments Agerage norm for pt's age group is 12 repetitions Dynamic Gait Index (DGI) Score 16/24 DGI Impairment Rating 20 to <40% Impaired (Score 15- 19) Timed Up and Go (TUG) Score 10.43 Comments Three-trial Average (11.93, 9. 56, 9.80) TUG Impairment Rating 1 to <20% Impaired (Score 11) PT-OP-M Strength Start: 08/31/22 17:23 Freq: Status: Active Protocol: Document 08/31/22 10:15 DCW (Rec: 08/31/22 17:55 [facility] [id number]) Hip Strength Hip Manual Muscle Testing Right Flexion (L2) 4 Good Abduction 4 Good Adduction 4+ Good+ Left Flexion (L2) 4 Good Abduction 4 Good Adduction 4+ Good+ Knee Strength Knee Manual Muscle Testing Right Flexion (S2) 4+ Good+ Extension (L3) 4+ Good+ Left Flexion (S2) 4+ Good+ Extension (L3) 4+ Good+ Ankle/Foot Strength Ankle and Foot Manual Muscle Testing Right Dorsiflexion (L4) 4 Good Left Dorsiflexion (L4) 4 Good PT-OP-Q Treatments Start: 08/31/22 17:23 Freq: Status: Active Protocol: Document 10/15/22 10:25 NBM (Rec: 10/15/22 11:20 [facility] [id number]) Cardio Equipment Recumbent Elliptical (Biodex) Duration (Minutes) 5 Resistance 5 Seat Position 6 Gym Equipment Shuttle Recovery Unilateral Squats Resistance 37# (one new band) Reps/Time x10 ea Bilateral Squats Details 2 x12 Resistance 62# (one new) Reps/Time two new bands too challenging Therapeutic Exercises Standing Exercises Hip abduction Standing Exercise Name assess for HEP next session Side bilateral Equipment Used handrail Reps/Minutes x10 ea Comments vc for toes fwd, upright posture Hip Extension Standing Exercise Name Hip Extension Side bilateral Resistance Lvl 1 Tb peach Equipment Used handrail Reps/Minutes 2x10 Comments max cues for striaght leg, assess for HEP next visit Neuro Re-Education Treatment Balance Activities Corner balance Details HEP- Progression: WBOS, NBOS, Staggered, SL Surface carpet Equipment corner, chair in front Reps/Duration 30s ea Comments EO/EC EO only and finger touch prn for SL balance. challenging LLE fwd>RLE fwd 3-steps, bow Details 3-steps, bow, and head turns Equipment gait belt Comments cues for upright posture w/ steps Self-Care/Home Management Treatment Education Patient Education Home Exercise Program,Pain Management,Posture Other Education Issued HEP for corner balance progression EO/EC WBOS, NBOS, staggered, tandem, SLS - HO given. PT-OP-T Assessment and Plan Start: 08/31/22 17:23 Freq: Status: Active Protocol: Document 10/15/22 10:25 NBM (Rec: 10/15/22 11:20 [facility] [id number]) Physical Therapy Assessment Goals Two Impairment Pt scores a 16/24 on the DGI, indicating an increased risk of falls Care Home Goal (LTG) Pt to increase DGI score by at least 4 points to 20/24 to exhibit a decrease in her falls risk. LTG Duration 11/01/22 One Impairment Pt does not have an appropriate home exercise program Short Term Goal (STG) Pt to be independent and compliant with an appropriate HEP STG Duration 10/01/22 Assessment Summary Assessment Speedy presents with Hurrycane and is challenged with maintaining straight leg for hip extension and with toes forward and upright posture for hip abduction - reassess for HEP next session. They are most challeged in corner balance with RLE back with staggered and tandem balance, and required frequent finger touch>FIRE PREVENTION CHIEF with SL balance bilaterally. Encouraged pt to open eyes or use stepping strategy as appropriate. Issued HEP for corner balance progression EO/EC WBOS, NBOS, staggered, tandem, SLS - HO given. Physical Therapy Plan Frequency and Duration Frequency of Treatment 2x/Week Plan of Care Start Date 08/31/22 Plan of Care End Date 11/01/22 Therapeutic Interventions Therapeutic Interventions Balance Training,Coordination Training,Gait Training,Home Exercise Program,Manual Therapy,Neuromuscular Re- education,Patient/Caregiver Education,Self-Care/Home Management,Therapeutic Activities,Therapeutic Exercises Next Visit Focus/Plan Next Note Type Treatment Note Next Visit Plan Balance training, LE strengthening
--- NOTE | 2022-10-18 10:15 | PT.OTN ---
Current Diagnoses Polyosteoarthritis, unspecified (10/18/22) Spondylosis without myelopathy or radiculopathy, cervical region (10/18/22) Cervicalgia (10/18/22) Unsteadiness on feet (10/18/22) Other abnormalities of gait and mobility (10/18/22) History of falling (10/18/22) Physical Therapy Treatment Note PT-OP-A Visit Information Start: 08/31/22 17:23 Freq: Status: Active Protocol: Document 10/18/22 09:32 DCW (Rec: 10/18/22 10:15 DCW [id number]) Out-Patient Physical Therapy Visit Information Visit Information Visit Type Treatment Note Visit Start Time 09:32 Visit Stop Time 10:15 Total Visit Minutes 43 Visit Number 8 Number of SDC TEACHER Visits 0 Evaluation Information Evaluation Date 08/31/22 PT-OP-B Current Condition Start: 08/31/22 17:23 Freq: Status: Active Protocol: Document 08/31/22 10:15 DCW (Rec: 08/31/22 17:31 DCW [id number]) Current Condition History of Current Condition Onset Date Four month history Current Complaints Falls, poor balance, fear of falling History of Current Condition Pt is an 82 year old female with complaints of poor balance and an increased fear of falling since suffering a fall four months ago. Reports that after her fall, she had a few months of home health PT, and felt like she noticed some improvement, but still does not feel too comfortable out walking, especially if she is by herself. Uses a SPC outside, but no assistive device in the house. Treatment Goals Patient/Caregiver Goals I just want better stability. PT-OP-C Subjective Start: 08/31/22 17:23 Freq: Status: Active Protocol: Document 10/18/22 09:32 DCW (Rec: 10/18/22 10:15 DCW [id number]) OP-PT Subjective Patient Comments Patient Comments I'm always worse in the morning, but once I get my legs under me, I usually get rid of my cane, at least until I leave the house and go out somewhere. PT-OP-D Balance Start: 08/31/22 17:23 Freq: Status: Active Protocol: Document 08/31/22 10:15 DCW (Rec: 08/31/22 17:55 DCW [id number]) Balance Tests Lowe Balance Test Lowe Balance Test Score 48/56 Lowe Balance Assessment Evaluation Sitting to Standing Ability Independent w/out Hands Unsupported Stance Safely- 2 minutes Sitting Unsupported, Feet on Floor Safely- 2 minutes Standing to Sitting Ability Safely, Minimal Hand Use Transfer Ability Safely, Minimal Hand Use Unsupported Stance- Eyes Closed Safely, 10 seconds Unsupported Stance- Eyes Open Independent, 1 minute Reaching Forward Standing Safely, 5 inches Pick- Up Object From Floor Independent/Safe Look Behind Shoulder - Standing Shifts Weight Unilateral Turning 360 Degrees Turns slowly, but safely Unsupported Stance, Alternating Feet on (I)- 8 Steps in 20 secs Stair Unsupported Tandem Stance Holds Tandem- 30 seconds Unilateral Leg Stance Lifts Leg/Unable to Hold Total Score Lowe Total Score (out of 56 points) 48 Lowe Impairment Rating 1 to 19% Impaired (Score 45-55 ) PT-OP-E Functional Tests Start: 08/31/22 17:23 Freq: Status: Active Protocol: Document 08/31/22 10:15 DCW (Rec: 08/31/22 17:55 [facility] [id number]) Functional Tests 30 Second Sit to Stand Test Score 11 repetitions Comments Agerage norm for pt's age group is 12 repetitions Dynamic Gait Index (DGI) Score 16/24 DGI Impairment Rating 20 to <40% Impaired (Score 15- 19) Timed Up and Go (TUG) Score 10.43 Comments Three-trial Average (11.93, 9. 56, 9.80) TUG Impairment Rating 1 to <20% Impaired (Score 11) PT-OP-M Strength Start: 08/31/22 17:23 Freq: Status: Active Protocol: Document 08/31/22 10:15 DCW (Rec: 08/31/22 17:55 [facility] [id number]) Hip Strength Hip Manual Muscle Testing Right Flexion (L2) 4 Good Abduction 4 Good Adduction 4+ Good+ Left Flexion (L2) 4 Good Abduction 4 Good Adduction 4+ Good+ Knee Strength Knee Manual Muscle Testing Right Flexion (S2) 4+ Good+ Extension (L3) 4+ Good+ Left Flexion (S2) 4+ Good+ Extension (L3) 4+ Good+ Ankle/Foot Strength Ankle and Foot Manual Muscle Testing Right Dorsiflexion (L4) 4 Good Left Dorsiflexion (L4) 4 Good PT-OP-Q Treatments Start: 08/31/22 17:23 Freq: Status: Active Protocol: Document 10/18/22 09:32 DCW (Rec: 10/18/22 10:15 DCW [id number]) Cardio Equipment Recumbent Elliptical (Biodex) Duration (Minutes) 6 Resistance 5 Seat Position 6 Gym Equipment Shuttle Recovery Unilateral Squats Resistance 37# (one new) Reps/Time x10 ea Bilateral Squats Details 2 x12 Resistance 87# Shuttle Balance Red Details WBOS (EO/EC), Staggered Stance Therapeutic Exercises Standing Exercises Hip abduction Standing Exercise Name Hip Abduction Side bilateral Equipment Used handrail Reps/Minutes x10 ea Comments HEP Hip Extension Standing Exercise Name Hip Extension Side bilateral Resistance Lvl 1 Tb peach Equipment Used handrail Reps/Minutes 2x10 Comments HEP Neuro Re-Education Treatment Balance Activities Hallway ambulation Details Head turns, Retro Ambulation Comments Head turns /c metronome 100 bpm Tandem Details Tandem Ambulation PT-OP-T Assessment and Plan Start: 08/31/22 17:23 Freq: Status: Active Protocol: Document 10/18/22 09:32 DCW (Rec: 10/18/22 10:15 DC [id number]) Physical Therapy Assessment Goals Two Impairment Pt scores a 16/24 on the DGI, indicating an increased risk of falls Multi Craft Maintenance Technician Goal (LTG) Pt to increase DGI score by at least 4 points to 20/24 to exhibit a decrease in her falls risk. LTG Duration 11/01/22 One Impairment Pt does not have an appropriate home exercise program Short Term Goal (STG) Pt to be independent and compliant with an appropriate HEP STG Duration 10/01/22 Assessment Summary Assessment Pt continues to struggle with hip abduction, still requires VCs to limit external rotation . Is showing some improvement with stability, particularly with horizontal head turns. Physical Therapy Plan Frequency and Duration Frequency of Treatment 2x/Week Plan of Care Start Date 08/31/22 Plan of Care End Date 11/01/22 Therapeutic Interventions Therapeutic Interventions Balance Training,Coordination Training,Gait Training,Home Exercise Program,Manual Therapy,Neuromuscular Re- education,Patient/Caregiver Education,Self-Care/Home Management,Therapeutic Activities,Therapeutic Exercises Next Visit Focus/Plan Next Note Type Treatment Note Next Visit Plan Balance training, LE strengthening
--- NOTE | 2022-10-22 10:15 | PT.OTN ---
Current Diagnoses Polyosteoarthritis, unspecified (10/22/22) Spondylosis without myelopathy or radiculopathy, cervical region (10/22/22) Cervicalgia (10/22/22) Unsteadiness on feet (10/22/22) Other abnormalities of gait and mobility (10/22/22) History of falling (10/22/22) Physical Therapy Treatment Note PT-OP-A Visit Information Start: 08/31/22 17:23 Freq: Status: Active Protocol: Document 10/22/22 09:45 DCW (Rec: 10/22/22 10:15 DCW [id number]) Out-Patient Physical Therapy Visit Information Visit Information Visit Type Discharge Summary Visit Start Time 09:45 Visit Stop Time 10:10 Total Visit Minutes 25 Visit Number 9 Number of INSPECTOR MATERIALS AND PROCESSES Visits 0 Evaluation Information Evaluation Date 08/31/22 PT-OP-B Current Condition Start: 08/31/22 17:23 Freq: Status: Active Protocol: Document 08/31/22 10:15 DCW (Rec: 08/31/22 17:31 DCW [id number]) Current Condition History of Current Condition Onset Date Four month history Current Complaints Falls, poor balance, fear of falling History of Current Condition Pt is an 82 year old female with complaints of poor balance and an increased fear of falling since suffering a fall four months ago. Reports that after her fall, she had a few months of home health PT, and felt like she noticed some improvement, but still does not feel too comfortable out walking, especially if she is by herself. Uses a SPC outside, but no assistive device in the house. Treatment Goals Patient/Caregiver Goals I just want better stability. PT-OP-C Subjective Start: 08/31/22 17:23 Freq: Status: Active Protocol: Document 10/22/22 09:45 DCW (Rec: 10/22/22 09:50 DCW [id number]) OP-PT Subjective Patient Comments Patient Comments Pt notes she had increased mid -back pain following last visit, but is doing better now . PT-OP-D Balance Start: 08/31/22 17:23 Freq: Status: Active Protocol: Document 08/31/22 10:15 DCW (Rec: 08/31/22 17:55 DCW [id number]) Balance Tests Lowe Balance Test Lowe Balance Test Score 48/56 Lowe Balance Assessment Evaluation Sitting to Standing Ability Independent w/out Hands Unsupported Stance Safely- 2 minutes Sitting Unsupported, Feet on Floor Safely- 2 minutes Standing to Sitting Ability Safely, Minimal Hand Use Transfer Ability Safely, Minimal Hand Use Unsupported Stance- Eyes Closed Safely, 10 seconds Unsupported Stance- Eyes Open Independent, 1 minute Reaching Forward Standing Safely, 5 inches Pick- Up Object From Floor Independent/Safe Look Behind Shoulder - Standing Shifts Weight Unilateral Turning 360 Degrees Turns slowly, but safely Unsupported Stance, Alternating Feet on (I)- 8 Steps in 20 secs Stair Unsupported Tandem Stance Holds Tandem- 30 seconds Unilateral Leg Stance Lifts Leg/Unable to Hold Total Score Lowe Total Score (out of 56 points) 48 Lowe Impairment Rating 1 to 19% Impaired (Score 45-55 ) PT-OP-E Functional Tests Start: 08/31/22 17:23 Freq: Status: Active Protocol: Document 10/22/22 09:45 DCW (Rec: 10/22/22 10:02 DCW [id number]) Functional Tests 30 Second Sit to Stand Test Score 11 repetitions Comments Average norm for pt's age group is 12 repetitions Dynamic Gait Index (DGI) Score 20/24 DGI Impairment Rating 20 to <40% Impaired (Score 15- 19) PT-OP-M Strength Start: 08/31/22 17:23 Freq: Status: Active Protocol: Document 08/31/22 10:15 DCW (Rec: 08/31/22 17:55 DCW [id number]) Hip Strength Hip Manual Muscle Testing Right Flexion (L2) 4 Good Abduction 4 Good Adduction 4+ Good+ Left Flexion (L2) 4 Good Abduction 4 Good Adduction 4+ Good+ Knee Strength Knee Manual Muscle Testing Right Flexion (S2) 4+ Good+ Extension (L3) 4+ Good+ Left Flexion (S2) 4+ Good+ Extension (L3) 4+ Good+ Ankle/Foot Strength Ankle and Foot Manual Muscle Testing Right Dorsiflexion (L4) 4 Good Left Dorsiflexion (L4) 4 Good PT-OP-Q Treatments Start: 08/31/22 17:23 Freq: Status: Active Protocol: Document 10/22/22 09:45 DCW (Rec: 10/22/22 10:15 DCW [id number]) Cardio Equipment Recumbent Elliptical (Biodex) Duration (Minutes) 8 Resistance 5 Seat Position 6 Neuro Re-Education Treatment Other Activities Testing Comments DGI, 30 StS PT-OP-T Assessment and Plan Start: 08/31/22 17:23 Freq: Status: Active Protocol: Document 10/22/22 09:45 DCW (Rec: 10/22/22 10:15 DCW [id number]) Physical Therapy Assessment Goals Two Impairment Pt scores a 16/24 on the DGI, indicating an increased risk of falls Alf Goal (LTG) Pt to increase DGI score by at least 4 points to 20/24 to exhibit a decrease in her falls risk. LTG Duration Met One Impairment Pt does not have an appropriate home exercise program Short Term Goal (STG) Pt to be independent and compliant with an appropriate HEP STG Duration Met Assessment Summary Assessment Pt testing very well, no longer in a falls risk category, per DGI. Pt having much fewer concerns regarding fear of falling, increased confidence in overall stability. Pt agreeable to discharge at this time, understands she will require a new referral in order to return. Physical Therapy Plan Frequency and Duration Frequency of Treatment 2x/Week Plan of Care Start Date 08/31/22 Plan of Care End Date 11/01/22 Therapeutic Interventions Therapeutic Interventions Balance Training,Coordination Training,Gait Training,Home Exercise Program,Manual Therapy,Neuromuscular Re- education,Patient/Caregiver Education,Self-Care/Home Management,Therapeutic Activities,Therapeutic Exercises Discharge Physical Therapy Discharge Reasons Goals Met Next Visit Focus/Plan Next Note Type Treatment Note
== END 2022-10-26 14:25 | disposition home or self-care (01) ==
LOC: PHYS 09:45
PROVIDERS: Family Provider Family Medicine; PCP Family Medicine; Referring Provider Family Medicine; Visit Provider Family Medicine
DX: R26.89 Other abnormalities of gait and mobility (principal); M15.9 Polyosteoarthritis, unspecified; M47.812 Spondylosis without myelopathy or radiculopathy, cervical region; M54.2 Cervicalgia; Z91.81 History of falling; R26.81 Unsteadiness on feet
CPT/HCPCS: 97110; 97112; 97161

== ENCOUNTER → 2022-12-08 16:23 | Outpatient (CLI) | payer OTHER, SELFPAY ==
[2022-12-08 18:55] LABS: Blood Urea Nitrogen 24 mg/dL (7-17); Calcium 10.1 mg/dL (8.4-10.2); Carbon Dioxide 25 mmol/L (22-32); Chloride 103 mmol/L (98-107); Estimated Glomerular Filt Rate 56 mL/min (>60); Glucose 105 mg/dL (80-110); HEMOLYSIS < 15 (0-50); Potassium 3.9 mmol/L (3.4-5.1); Sodium 138 mmol/L (137-145)
[2022-12-08 19:23] LABS: TSH w/ Reflex to FT4 0.82 uIU/mL (0.47-4.68)
== END ==
PROVIDERS: Family Provider Family Medicine; PCP Family Medicine; Referring Provider Family Medicine; Visit Provider Family Medicine
DX: E03.9 Hypothyroidism, unspecified (principal); I10 Essential (primary) hypertension
CPT/HCPCS: 36415; 80048; 84443

== ENCOUNTER → 2023-04-15 12:10 | Outpatient (CLI) | payer OTHER, SELFPAY ==
--- NOTE | 2023-04-15 12:13 | DI.RAD.S_ITS ---
PROCEDURE: XR HIP W PEL IF DONE RT 2V INDICATIONS: Right hip injury TECHNIQUE: AP pelvis with lateral view(s) of the right hip(s). COMPARISON: None. FINDINGS: Bones: No fractures or dislocations. Pelvic ring appears intact. There is mild bilateral hip joint space narrowing. No suspicious bony lesions. Soft tissues: The visualized bowel gas pattern is normal. No suspicious soft tissue calcifications. Probable calcified fibroids are present in the pelvis. IMPRESSION: No acute bony abnormality. If pain persists, followup imaging in 5-7 days is recommended to exclude occult fracture. Mild bilateral hip osteoarthritis. Dictated by: Moira Calvo M.D. on 04/15/2023 at 15:22 Approved by: Moira Calvo M.D. on 04/15/2023 at 15:23
== END ==
PROVIDERS: Family Provider Family Medicine; PCP Family Medicine; Referring Provider Registered Nurse; Visit Provider Registered Nurse
DX: M16.0 Bilateral primary osteoarthritis of hip (principal); M25.551 Pain in right hip
CPT/HCPCS: 73502

== ENCOUNTER → 2023-05-11 07:36 | Outpatient (CLI) | payer OTHER, SELFPAY ==
[2023-05-11 08:47] LABS: Add Manual Diff / Slide Review NO; Basophils Absolute Auto 0 /uL (0-100); Basophils Percent Auto 0.1 % (0-2); Eosinophils Absolute Auto 100 /uL (0-450); Eosinophils Percent Auto 3.4 % (2-4); Hematocrit 34.2 % (36-46); Hemoglobin 11.7 g/dL (12.0-16.0); Lymphocytes Absolute Auto 1000 /uL (1100-4500); Lymphocytes Percent Auto 26.9 % (25-40); Mean Corpuscular HGB Conc 34.1 % (30-36); Mean Corpuscular Hemoglobin 32.8 PG (26-34); Monocytes Absolute Auto 500 /uL (0-900); Monocytes Percent Auto 11.8 % (3-14); Neutrophils Absolute Auto 2200 /uL (1500-7000); Neutrophils Percent Auto 57.8 % (50-75); Platelet Count 173 X10^3/uL (150-400); Red Blood Cell Count 3.57 X10^6/uL (4.0-5.2); White Blood Cell Count 3.8 X10^3/uL (4.5-11.0)
[2023-05-11 09:09] LABS: Alanine Aminotransferase 12 IU/L (<35); Albumin Globulin Ratio 1.3 (1.0-2.8); Alkaline Phosphatase 97 U/L (38-126); Aspartate Aminotransferase 21 IU/L (14-36); BUN Creatinine Ratio 25.4 (6-22); Bilirubin Total 0.8 mg/dL (0.2-1.3); Blood Urea Nitrogen 30 mg/dL (7-17); Carbon Dioxide 29 mmol/L (22-32); Chloride 105 mmol/L (98-107); Cholesterol 173 mg/dL (140-199); Estimated Glomerular Filt Rate 46 mL/min (>60); Glucose 86 mg/dL (80-110); HDL Cholesterol 58 mg/dL (40-60); HEMOLYSIS < 15 (0-50); LDL Cholesterol Calculated 86 mg/dL (<100); Potassium 3.8 mmol/L (3.4-5.1); Sodium 140 mmol/L (137-145); Triglycerides 143 mg/dL (35-150)
[2023-05-11 09:35] LABS: TSH w/ Reflex to FT4 1.25 uIU/mL (0.47-4.68)
[2023-05-11 17:50] LABS: Creatinine Urine Random 138.6 mg/dL
[2023-05-11 17:55] LABS: Microalbumi Creatinin Ratio Ur 31.7 ug/mg CR (<30); Microalbumin Urine Random 4.4 mg/dL (0-1.6)
[2023-05-12 08:08] LABS: Apolipoprotein B 82 mg/dL (<90)
== END ==
PROVIDERS: Family Provider Family Medicine; PCP Family Medicine; Referring Provider Family Medicine; Visit Provider Family Medicine
DX: I65.29 Occlusion and stenosis of unspecified carotid artery (principal); E78.2 Mixed hyperlipidemia; E03.9 Hypothyroidism, unspecified; I10 Essential (primary) hypertension
CPT/HCPCS: 36415; 80053; 80061; 82043; 82172; 82570; 84443; 85025

== ENCOUNTER → 2023-06-16 08:04 | Outpatient (CLI) | payer OTHER, SELFPAY ==
[2023-06-16 10:36] LABS: Alanine Aminotransferase 13 IU/L (<35); Albumin 4.2 g/dL (3.5-5.0); Albumin Globulin Ratio 1.6 (1.0-2.8); Alkaline Phosphatase 92 U/L (38-126); Aspartate Aminotransferase 22 IU/L (14-36); Bilirubin Total 0.7 mg/dL (0.2-1.3); Blood Urea Nitrogen 27 mg/dL (7-17); Calcium 9.5 mg/dL (8.4-10.2); Carbon Dioxide 28 mmol/L (22-32); Chloride 107 mmol/L (98-107); Estimated Glomerular Filt Rate 53 mL/min (>60); Globulin 2.6 g/dL (1.7-4.1); Glucose 92 mg/dL (80-110); HEMOLYSIS < 15 (0-50); Potassium 4.7 mmol/L (3.4-5.1); Sodium 139 mmol/L (137-145); Total Protein 6.8 g/dL (6.3-8.2)
== END ==
LOC: LAB 08:04
PROVIDERS: Family Provider Family Medicine; PCP Family Medicine; Referring Provider Family Medicine; Visit Provider Family Medicine
DX: E87.1 Hypo-osmolality and hyponatremia (principal); N18.9 Chronic kidney disease, unspecified
CPT/HCPCS: 36415; 80053

== ENCOUNTER → 2023-06-17 11:38 | Outpatient (CLI) | payer OTHER, SELFPAY ==
[2023-06-17 14:18] LABS: Creatinine Urine Random 29.3 mg/dL
[2023-06-17 14:23] LABS: Microalbumin Urine Random < 0.6 mg/dL (0-1.6)
== END ==
PROVIDERS: Family Provider Family Medicine; PCP Family Medicine; Referring Provider Family Medicine; Visit Provider Family Medicine
DX: N18.9 Chronic kidney disease, unspecified (principal); E87.1 Hypo-osmolality and hyponatremia
CPT/HCPCS: 82043; 82570

== ENCOUNTER 2023-08-05 08:39 | Emergency (ER) | payer OTHER, SELFPAY ==
[2023-08-05] VITALS (7 sets, daily range): BP systolic 184–214; BP diastolic 77–81; PULSE 45–66; RESP 14–17; TEMP 37; O2SAT 95–99; BMI 32.3
--- NOTE | 2023-08-05 08:46 | DI.RAD.S_ITS ---
PROCEDURE: XR CHEST 2V INDICATIONS: 1 wk cough TECHNIQUE: 2 views of the chest were acquired. COMPARISON: [facility], CR, XR CHEST 2V, 05/05/2021, 11:02. FINDINGS: Surgical changes and devices: None. Lungs and pleura: Lungs are clear. No pleural effusions or pneumothorax. Mediastinum: Right perihilar prominence. Normal heart size. Calcified aortic knob. Bones and chest wall: No suspicious bony abnormalities. Soft tissues appear unremarkable. IMPRESSION: Right perihilar prominence, which could represent enlarged lymph node, dilated right pulmonary artery or less likely mass or infection. Consider CT with contrast for confirmation. Dictated by: Alex Hendrix M.D. on 08/05/2023 at 9:18 Approved by: Alex Hendrix M.D. on 08/05/2023 at 9:19
--- NOTE | 2023-08-05 08:52 | ED_ITS ---
HPI - General Adult General Chief complaint: Upper Respiratory Symptoms Stated complaint: Wheezing Time Seen by Provider: 08/05/23 08:41 History of Present Illness HPI narrative: 83-year-old female presents for 1 week of nonproductive cough, nasal congestion. No medications taken at home for symptoms. Patient states that her daughter recommended she be evaluated due to ongoing symptoms. She tried calling her doctor's office but there were no available appointments and so she decided to come to the emergency department for evaluation Related Data Home Medications Medication Instructions Recorded Confirmed cholecalciferol (vitamin D3) 50 2,000 unit PO DAILY 09/08/17 05/10/23 mcg (2,000 unit) capsule acetaminophen 500 mg tablet 1,000 mg PO BID PRN 02/02/18 05/10/23 (Tylenol Extra Strength) aloe vera 25 mg capsule 50 mg PO DAILY 09/27/18 05/10/23 MULTIVITAMIN (#MULTIPLE VITAMINS) 2 cap PO Q DAY ##0 04/04/19 05/10/23 vitamins A,C,I-wuvg-cqzxyi 4,296 2 cap PO QDAY ##0 05/05/22 05/10/23 mcg-226 mg-90 mg capsule (PreserVision AREDS) aspirin 81 mg tablet,delayed 81 mg PO DAILY 12/08/22 05/10/23 release (Adult Aspirin Regimen) Previous Rx's Medication Instructions Recorded Disabled Parking Permit #1 ea 09/16/22 donepezil 5 mg tablet See Rx Instructions .Route 12/15/22 .COMPLEX #90 tabs ibuprofen 800 mg tablet 800 mg PO BID PRN Pain #7 tabs 04/15/23 enalapril maleate 10 mg tablet 20 mg (2 x 10 mg) PO DAILY #180 06/06/23 tabs levothyroxine 88 mcg tablet 88 mcg PO DAILY #90 tabs 06/06/23 pravastatin 10 mg tablet See Rx Instructions .Route 06/28/23 .COMPLEX #90 tabs Allergies Allergy/AdvReac Type Severity Reaction Status Date / Time Penicillins Allergy Mild Verified 05/10/23 14:09 temazepam AdvReac Mild SLEEP Verified 05/10/23 14:09 WALKING Patient History Medical History Carotid artery stenosis Poor balance Goiter (~1954) Osteoarthritis (~2000) Shoulder pain (~2000) Measles (~1950) Chicken pox (~1947) Hearing loss (~1999) Surgical History Anesthesia History of vaginal delivery (~1968) Cataract (~2010) Status post dilation and curettage Family History Father History of heart attack Mother No problems noted. Social History Smoking Status: Never smoker Smoking Status: Never smoker Exam Initial Vital Signs Initial Vital Signs: Vital Signs Pulse Rate 61 08/05/23 08:46 Blood Pressure 184/77 H 08/05/23 08:46 Pulse Oximetry 97 08/05/23 08:46 Const: Awake, alert, no acute distress, nontoxic appearing Cardiac: regular rate, regular rhythm RESP: unlabored, clear bilaterally, no wheezing Skin: Warm, Dry, intact, no rashes Neuro: AO x3, CN II-XII grossly intact, walks with a cane Course Orders Ordered: ED Orders 08/05/23 08:46 Chest [XR chest 2V] Stat Respiratory Panel (Film Array) Stat 08/05/23 09:29 CT chest w con Stat 08/05/23 09:55 CBC Auto Diff [Complete Blood Count AUTO DIFF] Stat CMP [Comprehensive Metabolic Panel] Stat Vital Signs Vital signs: Vital Signs - 8 hr 08/05/23 08:46 08/05/23 08:46 08/05/23 08:48 Temperature 98.6 F Pulse Rate 61 66 Respiratory Rate 17 Blood Pressure 184/77 H 184/77 H Pulse Oximetry 97 95 Oxygen Delivery Method Room Air 08/05/23 09:04 08/05/23 09:30 08/05/23 10:00 Temperature Pulse Rate 60 47 L 45 L Respiratory Rate Blood Pressure Pulse Oximetry 97 97 98 Oxygen Delivery Method 08/05/23 10:30 Temperature Pulse Rate 48 L Respiratory Rate Blood Pressure Pulse Oximetry 98 Oxygen Delivery Method Medical Decision Making Differential Diagnosis Differential Diagnosis: Viral syndrome, bronchitis, rhino virus Lab Data 08/05/23 09:55 08/05/23 09:55 Labs: Lab Results 08/05/23 08/05/23 Range/Units 08:46 09:55 WBC 5.2 (4.5-11.0) X10^3/uL RBC 3.66 L (4.0-5.2) X10^6/uL Hgb 11.8 L (12.0-16.0) g/dL Hct 34.4 L (36-46) % MCV 93.9 (80-100) fL MCH 32.1 (26-34) PG MCHC 34.2 (30-36) % RDW 13.3 (11.6-14.8) % Plt Count 220 (150-400) X10^3/uL Neut % (Auto) 68.4 (50-75) % Lymph % (Auto) 18.6 L (25-40) % [place] % (Auto) 11.3 (3-14) % Eos % (Auto) 1.5 L (2-4) % Baso % (Auto) 0.2 (0-2) % Neut # (Auto) 3600 (3981-7896) /uL Lymph # (Auto) 1000 L (5331-2623) /uL [place] # (Auto) 600 (0-900) /uL Eos # (Auto) 100 (0-450) /uL Baso # (Auto) 0 (0-100) /uL Sodium 135 L (137-145) mmol/L Potassium 4.7 (3.4-5.1) mmol/L Chloride 106 (98-107) mmol/L Carbon Dioxide 27 (22-32) mmol/L BUN 18 H (7-17) mg/dL Creatinine 0.86 (0.52-1.04) mg/dL Estimated GFR > 60 (>60) mL/min BUN/Creatinine Ratio 20.9 (6-22) Glucose 119 H (80-110) mg/dL Calcium 9.1 (8.4-10.2) mg/dL Total Bilirubin 0.7 (0.2-1.3) mg/dL AST 28 (14-36) IU/L ALT 16 (<35) IU/L Alkaline Phosphatase 52 (38-126) U/L Total Protein 6.4 (6.3-8.2) g/dL Albumin 3.8 (3.5-5.0) g/dL Globulin 2.6 (1.7-4.1) g/dL Albumin/Globulin Ratio 1.5 (1.0-2.8) Chlamy pneumoniae PCR Not detected (Not Detect) Adenovirus (PCR) Not detected (Not Detect) B.parapertussis DNA PCR Not detected (Not Detecte) Coronavirus OC43 (PCR) Not detected (Not Detect) Coronavirus HKU1 (PCR) Not detected (Not Detect) Coronavirus 229E (PCR) Not detected (Not Detect) SARS-CoV-2 (PCR) Detected H (Not Detecte) Coronavirus NL63 (PCR) Not detected (Not Detect) Human Metapneumovir PCR Not detected (Not Detect) Influenza Type A (PCR) Not detected (Not Detect) Influenza Type B (PCR) Not detected (Not Detect) M. pneumoniae (PCR) Not detected (Not Detect) Parainfluenza 1 (PCR) Not detected (Not Detect) Parainfluenza 2 (PCR) Not detected (Not Detect) Parainfluenza 3 (PCR) Not detected (Not Detect) Parainfluenza 4 (PCR) Not detected (Not Detect) RSV (PCR) Not detected (Not Detect) Entero/Rhino (PCR) Not detected (Not Detect) Imaging Data Chest x-ray: My Impression: PROCEDURE: XR CHEST 2V INDICATIONS: 1 wk cough TECHNIQUE: 2 views of the chest were acquired. COMPARISON: [facility], , XR CHEST 2V, 05/05/2021, 11:02. FINDINGS: Surgical changes and devices: None. Lungs and pleura: Lungs are clear. No pleural effusions or pneumothorax. Mediastinum: Right perihilar prominence. Normal heart size. Calcified aortic knob. Bones and chest wall: No suspicious bony abnormalities. Soft tissues appear unremarkable. IMPRESSION: Right perihilar prominence, which could represent enlarged lymph node, dilated right pulmonary artery or less likely mass or infection. Consider CT with contrast for confirmation. Dictated by: Alex Hendrix M.D. on 08/05/2023 at 9:18 Approved by: Alex Hendrix M.D. on 08/05/2023 at 9:19 CT scan - chest: Radiologist's Impression: PROCEDURE: CT CHEST W CON INDICATIONS: ABNORMAL CXR/RIGHT PERIHILAR PROMINENCE TECHNIQUE: After the administration of intravenous contrast, 5 mm thick sections acquired from the pulmonary apices to the posterior costophrenic angles. 1 mm axial lung, 5 mm thick coronal and sagittal reformats and 7 mm axial MIP were acquired. For radiation dose reduction, the following was used: automated exposure control, adjustment of mA and/or kV according to patient size. COMPARISON: None. FINDINGS: Image quality: Diagnostic. Lower Neck: No enlarged lymph nodes. Thyroid: No thyroid nodules which require sonographic follow up, per consensus guidelines. Axillae: No enlarged lymph nodes. Chest Wall: Unremarkable. Bones: Anterior wedge compression deformity of the T11 vertebral body, chronic in appearance. Lungs and Pleura: No pneumothorax or pleural effusions. No consolidation. Few solid pulmonary nodules are present, largest measuring 3 mm in the right upper lobe (series 3, image 77). Heart: Heart size is normal. No pericardial effusion. Thoracic Vessels: The aorta and pulmonary arteries demonstrate normal size. Mediastinum and Anneliese: No enlarged lymph nodes. Esophagus: No wall thickening. No hiatal hernia. Upper Abdomen: Visualized upper abdomen solid organs and bowel loops appear normal. IMPRESSION: Dilated pulmonary arteries, most consistent with pulmonary hypertension. Scattered solid pulmonary nodules. Consider 12 month follow-up if at high risk for developing lung cancer, per Fleischner Society guidelines. Dictated by: Alex Hendrix M.D. on 08/05/2023 at 11:08 Approved by: Alex Hendrix M.D. on 08/05/2023 at 11:12 MDM Narrative Additional Information: Well-appearing patient presenting for general evaluation after upper respiratory symptoms lasting 1 week. Patient checked in with complaint of ?wheezing?, however I do not hear any wheezing in any lung field on pulmonary exam. Chest x-ray and respiratory swab ordered. Chest x-ray noted an opacity at the right hilar region concerning for mass versus dilation of pulmonary arteries versus mass. For further assessment a CT of the chest with contrast ordered. Patient's respiratory panel positive for COVID-19. CT chest confirms dilated pulmonary arteries concerning for pulmonary hypertension. Patient resting comfortably in bed, saturating well on room air, vital signs stable. Patient was informed of her COVID-19 results as well as the results of CT chest. Recommended PCP follow up for this finding. Supportive measures counseled for home. Discharge Plan Departure Patient Disposition: Home Clinical Impression: COVID-19, Dilatation of pulmonic artery Instructions: COVID-19 Activity Restrictions/Additional Instructions: Your respiratory panel came back positive for COVID-19. Your chest CT showed that you may have something called pulmonary hypertension, I recommend following up with your primary care doctor if you have any symptoms like shortness of breath. Prescriptions: No Action MULTIVITAMIN (#MULTIPLE VITAMINS) 2 cap PO Q DAY Qty: 0 PreserVision AREDS 4,296 mcg-226 mg-90 mg capsule 2 cap PO QDAY Qty: 0 (DME) Disabled Parking Permit See Rx Instructions .ROUTE .MEDSUPPLY Qty: 1 0RF Rx Instructions: I find this patient to be medically disabled and qualified for Disabled Parking as indicated and signed on the accompanying Disabled Parking Application for Individuals. donepezil 5 mg tablet See Rx Instructions .ROUTE .COMPLEX Qty: 90 2RF Dose Instruction: TAKE ONE TABLET BY MOUTH ONCE DAILY Rx Instructions: TAKE ONE TABLET BY MOUTH ONCE DAILY ibuprofen 800 mg tablet 800 mg PO BID PRN (Reason: Pain) Qty: 7 0RF levothyroxine 88 mcg tablet 88 mcg PO DAILY Qty: 90 2RF enalapril maleate 10 mg tablet 20 mg PO DAILY Qty: 180 2RF pravastatin 10 mg tablet See Rx Instructions .ROUTE .COMPLEX Qty: 90 0RF Dose Instruction: TAKE ONE TABLET BY MOUTH ONCE DAILY Rx Instructions: TAKE ONE TABLET BY MOUTH ONCE DAILY cholecalciferol (vitamin D3) 2,000 unit capsule 2,000 unit PO DAILY aloe vera 25 mg capsule 50 mg PO DAILY aspirin [Adult Aspirin Regimen] 81 mg tablet,delayed release (DR/EC) 81 mg PO DAILY acetaminophen [Tylenol Extra Strength] 500 mg tablet 1,000 mg PO BID PRN Referrals: Tom Boss MD [Primary Care Provider] - Stand Alone Forms: Patient Portal/API
--- NOTE | 2023-08-05 09:29 | DI.CT.S_ITS ---
PROCEDURE: CT CHEST W CON INDICATIONS: ABNORMAL CXR/RIGHT PERIHILAR PROMINENCE TECHNIQUE: After the administration of intravenous contrast, 5 mm thick sections acquired from the pulmonary apices to the posterior costophrenic angles. 1 mm axial lung, 5 mm thick coronal and sagittal reformats and 7 mm axial MIP were acquired. For radiation dose reduction, the following was used: automated exposure control, adjustment of mA and/or kV according to patient size. COMPARISON: None. FINDINGS: Image quality: Diagnostic. Lower Neck: No enlarged lymph nodes. Thyroid: No thyroid nodules which require sonographic follow up, per consensus guidelines. Axillae: No enlarged lymph nodes. Chest Wall: Unremarkable. Bones: Anterior wedge compression deformity of the T11 vertebral body, chronic in appearance. Lungs and Pleura: No pneumothorax or pleural effusions. No consolidation. Few solid pulmonary nodules are present, largest measuring 3 mm in the right upper lobe (series 3, image 77). Heart: Heart size is normal. No pericardial effusion. Thoracic Vessels: The aorta and pulmonary arteries demonstrate normal size. Mediastinum and Anneliese: No enlarged lymph nodes. Esophagus: No wall thickening. No hiatal hernia. Upper Abdomen: Visualized upper abdomen solid organs and bowel loops appear normal. IMPRESSION: Dilated pulmonary arteries, most consistent with pulmonary hypertension. Scattered solid pulmonary nodules. Consider 12 month follow-up if at high risk for developing lung cancer, per Fleischner Society guidelines. Dictated by: Alex Hendrix M.D. on 08/05/2023 at 11:08 Approved by: Alex Hendrix M.D. on 08/05/2023 at 11:12
[2023-08-05 09:41] LABS: Adenovirus Not Detected (Not Detect); B. parapertussis Not Detected (Not Detecte); Bordetella pertussis Not Detected (Not Detect); Chlamydophila pneumoniae Not Detected (Not Detect); Coronavirus 229E Not Detected (Not Detect); Coronavirus HKU1 Not Detected (Not Detect); Coronavirus NL 63 Not Detected (Not Detect); Coronavirus OC43 Not Detected (Not Detect); Human Metapneumovirus Not Detected (Not Detect); Human Rhinovirus/Enterovirus Not Detected (Not Detect); Influenza A Not Detected (Not Detect); Influenza B Not Detected (Not Detect); Mycoplasma pneumoniae Not Detected (Not Detect); Parainfluenza Virus 1 Not Detected (Not Detect); Parainfluenza Virus 2 Not Detected (Not Detect); Parainfluenza Virus 3 Not Detected (Not Detect); Parainfluenza Virus 4 Not Detected (Not Detect); Respiratory Syncytial Virus Not Detected (Not Detect); SARS- CoV-2 Detected (Not Detecte)
[2023-08-05 10:04] LABS: Add Manual Diff / Slide Review NO; Basophils Absolute Auto 0 /uL (0-100); Basophils Percent Auto 0.2 % (0-2); Eosinophils Absolute Auto 100 /uL (0-450); Eosinophils Percent Auto 1.5 % (2-4); Hematocrit 34.4 % (36-46); Hemoglobin 11.8 g/dL (12.0-16.0); Lymphocytes Absolute Auto 1000 /uL (1100-4500); Lymphocytes Percent Auto 18.6 % (25-40); Mean Corpuscular HGB Conc 34.2 % (30-36); Mean Corpuscular Hemoglobin 32.1 PG (26-34); Mean Corpuscular Volume 93.9 fL (80-100); Monocytes Absolute Auto 600 /uL (0-900); Monocytes Percent Auto 11.3 % (3-14); Neutrophils Absolute Auto 3600 /uL (1500-7000); Neutrophils Percent Auto 68.4 % (50-75); Platelet Count 220 X10^3/uL (150-400); Red Blood Cell Count 3.66 X10^6/uL (4.0-5.2); Red Cell Distribution Width 13.3 % (11.6-14.8); White Blood Cell Count 5.2 X10^3/uL (4.5-11.0)
[2023-08-05 10:19] LABS: Alanine Aminotransferase 16 IU/L (<35); Albumin 3.8 g/dL (3.5-5.0); Albumin Globulin Ratio 1.5 (1.0-2.8); Alkaline Phosphatase 52 U/L (38-126); Aspartate Aminotransferase 28 IU/L (14-36); BUN Creatinine Ratio 20.9 (6-22); Bilirubin Total 0.7 mg/dL (0.2-1.3); Blood Urea Nitrogen 18 mg/dL (7-17); Calcium 9.1 mg/dL (8.4-10.2); Carbon Dioxide 27 mmol/L (22-32); Chloride 106 mmol/L (98-107); Estimated Glomerular Filt Rate > 60 mL/min (>60); Globulin 2.6 g/dL (1.7-4.1); Glucose 119 mg/dL (80-110); Potassium 4.7 mmol/L (3.4-5.1); Sodium 135 mmol/L (137-145); Total Protein 6.4 g/dL (6.3-8.2)
[2023-08-05 10:27] LABS: HEMOLYSIS 93 (0-50)
== END 2023-08-05 11:37 | disposition home or self-care (01) ==
PROVIDERS: Emergency Provider Emergency Medicine; Family Provider Family Medicine; PCP Family Medicine
DX: U07.1 COVID-19 (principal); I28.8 Other diseases of pulmonary vessels
CPT/HCPCS: 71046; 71260; 80053; 85025; 87633; 99282; 99284

== ENCOUNTER → 2023-09-06 15:16 | Outpatient (CLI) | payer OTHER, SELFPAY ==
--- NOTE | 2023-09-06 15:17 | DI.RAD.S_ITS ---
PROCEDURE: XR HIP W PEL IF DONE SHILPI MIN 4V INDICATIONS: Pain in R hip and R SI joint; no hx of injury TECHNIQUE: AP pelvis with lateral view(s) of the bilateral hip(s). COMPARISON: [facility], [place], XR HIP W PEL IF DONE RT 2V, 04/15/2023, 12:14. FINDINGS: Bones: No fractures or dislocations. Pelvic ring appears intact. No suspicious bony lesions. Mild bilateral hip degenerative change. Findings are stable. Soft tissues: The visualized bowel gas pattern is normal. No suspicious soft tissue calcifications. IMPRESSION: No acute bony abnormality. Mild bilateral hip degenerative change. Dictated by: Malcolm Gomez M.D. on 09/06/2023 at 18:54 Approved by: Malcolm Gomez M.D. on 09/06/2023 at 18:55
--- NOTE | 2023-09-06 15:17 | DI.RAD.S_ITS ---
PROCEDURE: XR LUMBAR SPINE MIN 4V INDICATIONS: Pain in R hip and R SI joint; no hx of injury TECHNIQUE: 5 views of the lumbar spine were acquired, including bilateral oblique views. COMPARISON: [facility], CT, CT CHEST W CON, 08/05/2023, 10:57. [facility], CR, L-SPINE 2-3 VIEWS, 08/29/2014, 13:04. FINDINGS: Bones: 5 nonrib-bearing vertebrae are present. There is normal bony alignment. Age indeterminate mild L2 compression. Lower lumbar facet arthropathy. No suspicious bony lesions. Soft tissues: Overlying bowel gas pattern is normal. No suspicious soft tissue calcifications. Oblique images: No pars defects. Note is made of multiple calcified uterine fibroids. IMPRESSION: 1. Age indeterminate L2 compression fracture. 2. Lower lumbar facet arthropathy. Comment: If suspect pain from an acute or subacute compression fracture, consider MRI. Dictated by: Malcolm Gomez M.D. on 09/06/2023 at 18:51 Approved by: Malcolm Gomez M.D. on 09/06/2023 at 18:54
== END ==
PROVIDERS: Family Provider Family Medicine; PCP Family Medicine; Referring Provider Physician Assistant; Visit Provider Physician Assistant
DX: M47.816 Spondylosis without myelopathy or radiculopathy, lumbar region (principal); M48.56XA Collapsed vertebra, not elsewhere classified, lumbar region, initial encounter for fracture; M25.551 Pain in right hip; M53.3 Sacrococcygeal disorders, not elsewhere classified
CPT/HCPCS: 72110; 73522

== ENCOUNTER → 2023-09-08 18:48 | Outpatient (CLI) | payer OTHER, SELFPAY ==
--- NOTE | 2023-09-08 18:52 | DI.MRI.S_ITS ---
PROCEDURE: MR LUMBAR SPINE WO CON INDICATIONS: Compression fx of L2; Pain in LS spine and R hip TECHNIQUE: Noncontrast sagittal T1 spin echo and T2 fast echo, sagittal STIR, and T2 fast spin echo through the lumbar spine. In cases with scoliosis, additional coronal T2 fast spin echo may be performed. COMPARISON: [facility], CR, XR LUMBAR SPINE MIN 4V, 09/06/2023, 15:20. FINDINGS: Image quality: Excellent. Alignment and Curvature: Mild anterolisthesis of L5 on S1. Bone Marrow: Mild compression deformity of the superior endplate of L1 with mild associated edema, consistent with likely subacute etiology. Mild anterior wedging of T11, while there is some edema noted within the T11 vertebral body, this is favored to be from Modic type 1 degenerative endplate changes at T11-T12. Spinal Cord: Conus medullaris terminates at the L1 level. Visualized cord demonstrates normal signal and size. Paraspinous Soft Tissues: No paravertebral masses. T12-L1: Disc desiccation and mild height loss. Posterior disc bulge. Facet arthropathy. No significant central canal or neural foraminal stenosis. L1-L2: Disc desiccation and mild diffuse disc bulge. Facet arthropathy and thickening of ligamentum flavum. Mild central canal stenosis. Moderate bilateral neural foraminal stenosis. L2-L3: Disc desiccation and mild height loss. Mild diffuse disc bulge. Facet arthropathy and thickening of ligamentum flavum. No significant central canal stenosis. Mild bilateral neural foraminal stenosis. L3-L4: Disc desiccation and mild height loss. Mild disc bulge. Facet arthropathy and thickening of ligamentum flavum. No significant central canal stenosis. Mild bilateral neural foraminal stenosis. L4-L5: Disc desiccation and mild disc bulge. Facet arthropathy and thickening of ligamentum flavum. No significant central canal stenosis. Mild bilateral neural foraminal stenosis. L5-S1: Disc desiccation and diffuse disc bulge. Facet arthropathy and thickening of ligamentum flavum. No significant central canal stenosis. Mild bilateral neural foraminal stenosis. IMPRESSION: 1. Mild compression deformity of the superior endplate of L1 with associated edema, consistent with likely subacute etiology. 2. Mild anterior wedging of T11, favored to be chronic. While there is some edema in the T11 vertebral body, this is favored to be secondary to degenerative endplate changes. 3. Multilevel degenerative changes of lumbar spine as described above. Dictated by: Jonathan Leyva M.D. on 09/08/2023 at 19:57 Approved by: Jonathan Leyva M.D. on 09/08/2023 at 20:02
== END ==
LOC: MRI 18:50
PROVIDERS: Family Provider Family Medicine; PCP Family Medicine; Referring Provider Physician Assistant; Visit Provider Physician Assistant
DX: S32.020A Wedge compression fracture of second lumbar vertebra, initial encounter for closed fracture (principal); M47.816 Spondylosis without myelopathy or radiculopathy, lumbar region; M47.817 Spondylosis without myelopathy or radiculopathy, lumbosacral region; M25.551 Pain in right hip; M53.3 Sacrococcygeal disorders, not elsewhere classified; M48.061 Spinal stenosis, lumbar region without neurogenic claudication; M48.07 Spinal stenosis, lumbosacral region; M48.54XA Collapsed vertebra, not elsewhere classified, thoracic region, initial encounter for fracture; M43.8X6 Other specified deforming dorsopathies, lumbar region
CPT/HCPCS: 72148

== ENCOUNTER 2023-09-10 12:15 | Emergency (ER) | payer OTHER, SELFPAY ==
[2023-09-10] VITALS (8 sets, daily range): BP systolic 174–221; BP diastolic 67–81; PULSE 46–61; RESP 18; TEMP 36.7; O2SAT 96–98; BMI 32.1
--- NOTE | 2023-09-10 13:22 | ED_ITS ---
HPI - Back Pain/Injury General Chief Complaint: Back Pain/Injury Stated Complaint: Fractured L2, Doc recommended coming in Time Seen by Provider: 09/10/23 12:34 Source: patient Mode of arrival: Ambulatory History of Present Illness HPI Narrative: Patient is an 83-year-old female. About 1 week ago started to have increase in her lower back pain. She states the last time that she fell was in March this year. At that time she was seen and evaluated and had imaging studies he was told nothing was fractured. When her back pain started increase she had imaging studies ordered by her primary doctor. She has an L2 compression frac ture. She has been doing Tylenol and ibuprofen at home. She was told by her primary doctor that if she needed stronger pain medication that she needs to come to the emergency department. She was here because she states that she is having a difficult time sleeping at night because of the discomfort. No new neurologic symptoms. No fevers. No urinary or bowel changes. Related Data Home Medications Medication Instructions Recorded Confirmed cholecalciferol (vitamin D3) 50 2,000 unit PO DAILY 09/08/17 09/06/23 mcg (2,000 unit) capsule acetaminophen 500 mg tablet 1,000 mg PO BID PRN 02/02/18 09/06/23 (Tylenol Extra Strength) aloe vera 25 mg capsule 50 mg PO DAILY 09/27/18 09/06/23 MULTIVITAMIN (#MULTIPLE VITAMINS) 2 cap PO Q DAY ##0 04/04/19 09/06/23 vitamins A,C,F-sfuu-wvtvac 4,296 2 cap PO QDAY ##0 05/05/22 09/06/23 mcg-226 mg-90 mg capsule (PreserVision AREDS) enalapril maleate 10 mg tablet 10 mg PO BID 08/19/23 09/06/23 Previous Rx's Medication Instructions Recorded Disabled Parking Permit #1 ea 09/16/22 donepezil 5 mg tablet See Rx Instructions .Route 12/15/22 .COMPLEX #90 tabs levothyroxine 88 mcg tablet 88 mcg PO DAILY #90 tabs 06/06/23 pravastatin 10 mg tablet See Rx Instructions .Route 06/28/23 .COMPLEX #90 tabs hydrocodone 5 mg-acetaminophen 325 1 tab PO Q8H PRN pain #20 tabs 09/10/23 mg tablet Allergies Allergy/AdvReac Type Severity Reaction Status Date / Time Penicillins Allergy Mild Verified 09/06/23 14:50 temazepam AdvReac Mild SLEEP Verified 09/06/23 14:50 WALKING Review of Systems Review of Systems Narrative: See HPI Patient History Medical History Carotid artery stenosis Poor balance Goiter (~1954) Osteoarthritis (~2000) Shoulder pain (~1999) Measles (~1949) Chicken pox (~1947) Hearing loss (~1999) Surgical History Anesthesia History of vaginal delivery (~1968) Cataract (~2010) Status post dilation and curettage Family History Father History of heart attack Mother No problems noted. Social History Smoking Status: Never smoker Smoking Status: Never smoker alcohol intake frequency: holidays/special occasions only Substance Use Type: does not use Exam Initial Vital Signs Initial Vital Signs: Vital Signs Temperature 98.1 F 09/10/23 12:25 Pulse Rate 60 09/10/23 12:25 Respiratory Rate 18 09/10/23 12:25 Blood Pressure 221/81 H 09/10/23 12:25 Pulse Oximetry 98 09/10/23 12:25 Oxygen Delivery Method Room Air 09/10/23 12:25 Const General: cooperative, comfortable and No ill appearing HENMT Head: normal to inspection and normocephalic Resp Effort & Inspection: normal respiratory effort Cardio Rate: regular rate Neuro General: patient alert, patient awake and moves all extremities Course Vital Signs Vital signs: Vital Signs - 8 hr 09/10/23 12:25 Temperature 98.1 F Pulse Rate 60 Respiratory Rate 18 Blood Pressure 221/81 H Pulse Oximetry 98 Oxygen Delivery Method Room Air MDM - Back Pain/Injury MDM Narrative Medical decision making narrative: She has a known L2 compression fracture. The Tylenol and ibuprofen that she has been taking at home has not been helping her specifically night when she was sleeping. I will prescribe pain medication for her. No indication for reimaging today based on her history and physical. She was given return precautions. She expressed understanding and agreement. Discharge Plan Departure Patient Disposition: Home Clinical Impression: Compression fracture of lumbar vertebra Instructions: Vertebral Compression Fracture Activity Restrictions/Additional Instructions: You can continue to take the Tylenol and ibuprofen during the day. Use the pain medication as needed for breakthrough pain. Contact your primary care doctor for a follow-up. Return to the emergency department for new symptoms. Prescriptions: New hydrocodone-acetaminophen 5-325 mg tablet 1 tab PO Q8H PRN (Reason: pain) Qty: 20 0RF No Action MULTIVITAMIN (#MULTIPLE VITAMINS) 2 cap PO Q DAY Qty: 0 PreserVision AREDS 4,296 mcg-226 mg-90 mg capsule 2 cap PO QDAY Qty: 0 (DME) Disabled Parking Permit See Rx Instructions .ROUTE .MEDSUPPLY Qty: 1 0RF Rx Instructions: I find this patient to be medically disabled and qualified for Disabled Parking as indicated and signed on the accompanying Disabled Parking Application for Individuals. donepezil 5 mg tablet See Rx Instructions .ROUTE .COMPLEX Qty: 90 2RF Dose Instruction: TAKE ONE TABLET BY MOUTH ONCE DAILY Rx Instructions: TAKE ONE TABLET BY MOUTH ONCE DAILY levothyroxine 88 mcg tablet 88 mcg PO DAILY Qty: 90 2RF pravastatin 10 mg tablet See Rx Instructions .ROUTE .COMPLEX Qty: 90 0RF Dose Instruction: TAKE ONE TABLET BY MOUTH ONCE DAILY Rx Instructions: TAKE ONE TABLET BY MOUTH ONCE DAILY cholecalciferol (vitamin D3) 2,000 unit capsule 2,000 unit PO DAILY aloe vera 25 mg capsule 50 mg PO DAILY enalapril maleate 10 mg tablet 10 mg PO BID acetaminophen [Tylenol Extra Strength] 500 mg tablet 1,000 mg PO BID PRN Referrals: Tom Boss MD [Primary Care Provider] - Stand Alone Forms: Patient Portal/API
== END 2023-09-10 14:00 | disposition home or self-care (01) ==
PROVIDERS: Emergency Provider Emergency Medicine; Family Provider Family Medicine; PCP Family Medicine
DX: M48.56XA Collapsed vertebra, not elsewhere classified, lumbar region, initial encounter for fracture (principal)
CPT/HCPCS: 99281; 99283